=== PATIENT | male | born 1955 | race Caucasian/White ===

== ENCOUNTER → 2016-05-07 | Outpatient (CLI) | payer BC | END | disposition home or self-care (01) | LOC: LABWHC1 11:19 | PROVIDERS: ATTEND Urology | DX: C61 Malignant neoplasm of prostate (principal) | CPT/HCPCS: 36415; 84153 ==

== ENCOUNTER → 2016-09-16 | Outpatient (CLI) | payer BC ==
[2016-09-16 07:55] LABS: Appearance,Urine Clear (Clear); Bilirubin,Urine Negative (Negative); Glucose,Urine (UA) Negative (Negative); Ketones,Urine Negative (Negative); Leukocyte Esterase,Urine Negative (Negative); Nitrite,Urine Negative (Negative); PH, Urine 5.5 (5.0-8.0); Protein,Urine Negative (Negative); Specific Gravity,Urine 1.019 (1.001-1.035); UA Billing (MACRO vs. MICRO) CHEM; Urobilinogen,Urine <2.0 mg/dL (<2.0)
[2016-09-16 07:58] LABS: CH 33.5; CHCM 33.6; HCT 43.5 % (39.0-53.0); HDW 2.37; HGB 14.5 gm/dL (13.0-17.5); MCH 33.4 pg (25.0-35.0); MCHC 33.4 g/dL (31.0-37.0); Mean Platelet Volume 6.9; RBC 4.35 m/uL (4.30-5.90); RDW 12.5 % (11.5-15.5); WBC 6.9 k/uL (3.8-10.6)
[2016-09-16 12:21] LABS: ALT 36 U/L (21-72); AST 23 U/L (17-59); Alkaline Phosphatase 62 U/L (38-126); Anion Gap 7 mmol/L; Blood Urea Nitrogen 17 mg/dL (9-20); Calcium 9.9 mg/dL (8.4-10.2); Carbon Dioxide 28 mmol/L (22-30); Chloride 108 mmol/L (98-107); Cholesterol 134 mg/dL (<200); Glucose 96 mg/dL (74-99); HDL Cholesterol 44 mg/dL (40-60); Non-African American GFR(MDRD) >60 (>60 ml/min/1.73 sqM); Potassium 4.9 mmol/L (3.5-5.1); Sodium 143 mmol/L (137-145); Total Bilirubin 0.4 mg/dL (0.2-1.3); Total Protein 6.5 g/dL (6.3-8.2); Triglycerides 51 mg/dL (<150)
[2016-09-16 12:45] LABS: Prostate Specific Antigen 1.47 ng/mL (0.00-4.00)
== END | disposition home or self-care (01) ==
LOC: LABWHC1 07:09
PROVIDERS: ATTEND Internal Medicine
DX: Z00.00 Encounter for general adult medical examination without abnormal findings (principal); C61 Malignant neoplasm of prostate; I25.10 Atherosclerotic heart disease of native coronary artery without angina pectoris; E78.5 Hyperlipidemia, unspecified
CPT/HCPCS: 36415; 80053; 80061; 81003; 84153; 85027

== ENCOUNTER → 2017-12-01 | Outpatient (CLI) | payer BC ==
[2017-12-01 10:10] LABS: Prostate Specific Antigen 2.88 ng/mL (0.00-4.00)
== END | disposition home or self-care (01) ==
LOC: LABWHC1 06:52
PROVIDERS: ATTEND Urology
DX: C61 Malignant neoplasm of prostate (principal); I25.10 Atherosclerotic heart disease of native coronary artery without angina pectoris
CPT/HCPCS: 36415; 80061; 84153

== ENCOUNTER → 2018-03-06 | Outpatient (CLI) | payer BC ==
[2018-03-06 07:27] LABS: HCT 46.2 % (39.0-53.0); MCH 31.9 pg (25.0-35.0); MCHC 32.5 g/dL (31.0-37.0); MCV 98.2 fL (80.0-100.0); Mean Platelet Volume 6.6; Platelet Count 192 k/uL (150-450); RBC 4.71 m/uL (4.30-5.90); RDW 12.5 % (11.5-15.5); WBC 8.3 k/uL (3.8-10.6)
[2018-03-06 11:30] LABS: Albumin 4.3 g/dL (3.80-4.90); Albumin/Globulin Ratio 2.26 (1.20-2.10); Anion Gap 2.9 mmol/L (4.00-12.00); Calcium 9.4 mg/dL (8.7-10.3); Carbon Dioxide 29.1 mmol/L (21.6-31.8); Globulin 1.9 g/dL (2.1-3.7); LDL Cholesterol,Calculated 80.6 mg/dL (0.0-131.0); Potassium 4.2 mmol/L (3.5-5.5); Total Bilirubin 0.5 mg/dL (0.2-1.2); Total Protein 6.2 g/dL (6.2-8.2); VLDL Calculation 19.4 mg/dL (5.00-40.00)
[2018-03-06 11:39] LABS: Prostate Specific Antigen 1.8 ng/mL (0.0-4.5)
[2018-03-06 11:50] LABS: T4, Free (Free Thyroxine) 0.9 ng/dL (0.80-1.80)
== END | disposition home or self-care (01) ==
LOC: LABWHC1 06:52
PROVIDERS: ATTEND Internal Medicine Cardiovascular Disease
DX: I25.10 Atherosclerotic heart disease of native coronary artery without angina pectoris (principal); I10 Essential (primary) hypertension; E78.5 Hyperlipidemia, unspecified; N40.0 Benign prostatic hyperplasia without lower urinary tract symptoms; I73.9 Peripheral vascular disease, unspecified
CPT/HCPCS: 36415; 80053; 80061; 84153; 84439; 84443; 84481; 85027

== ENCOUNTER → 2018-03-07 | Outpatient (CLI) | payer BC ==
--- NOTE | 2018-03-08 05:44 | MR ---
EXAMINATION TYPE: MR Prostate wo/w con DATE OF EXAM: 03/07/2018 COMPARISON: IMAGE QUALITY: . INDICATION: Prostate cancer PSA: 1.8 ng/ml Recent Biopsy and Date: Pathology Report (If Applicable): TECHNIQUE: Examination was performed using a 3T MRI without an endorectal coil. Multiparametric imaging was perf ormed with T2 mutliplanar sequences, axial diffusion weighted imaging and dynamic contrast enhanced i maging, utilizing 7.5 mL intravenous Gadavist gadolinium contrast. FINDINGS: Prostate gland measures 4.8 x 4.1 x 3.7 cm. On the T2 images there is a large area of abnormal decrea sed signal involving the right peripheral gland. This measures 3.2 x 1.4 cm. The left peripheral glan d shows fairly normal signal pattern. Central gland is unremarkable. Right peripheral gland is slight ly larger than the left. The early contrast images show enhancement of the right peripheral gland that measures 3.3 x 2.4 cm. The intermediate contrast images show some washout of the contrast in the central portion of the abno rmal right peripheral gland. This persists into the delayed images. IMPRESSION: The exam shows asymmetric enlargement of the right peripheral gland with abnormal signal pattern on t he T2 images consistent with tumor. This is also abnormal on the contrast images with early pathologi c enhancement and early washout.
== END | disposition home or self-care (01) ==
LOC: RADMRIMAIN 08:54
PROVIDERS: ATTEND Urology
DX: C61 Malignant neoplasm of prostate (principal)
CPT/HCPCS: 72197

== ENCOUNTER → 2018-05-18 | Outpatient (CLI) | payer BC ==
[2018-05-18 07:47] LABS: HCT 46.7 % (39.0-53.0); HGB 14.8 gm/dL (13.0-17.5); MCH 31.4 pg (25.0-35.0); MCHC 31.7 g/dL (31.0-37.0); Mean Platelet Volume 6.5; Platelet Count 175 k/uL (150-450); RBC 4.72 m/uL (4.30-5.90); RDW 12.9 % (11.5-15.5); WBC 6.7 k/uL (3.8-10.6)
[2018-05-18 07:54] LABS: Appearance,Urine Clear (Clear); Bilirubin,Urine Negative (Negative); Blood,Urine Negative (Negative); Color,Urine Yellow; Glucose,Urine (UA) Negative (Negative); Ketones,Urine Negative (Negative); Leukocyte Esterase,Urine Negative (Negative); Nitrite,Urine Negative (Negative); PH, Urine 6.5 (5.0-8.0); Protein,Urine Negative (Negative); Specific Gravity,Urine 1.012 (1.001-1.035); Urobilinogen,Urine <2.0 mg/dL (<2.0)
[2018-05-18 12:32] LABS: Albumin 4.4 g/dL (3.80-4.90); Albumin/Globulin Ratio 2.32 (1.20-2.10); Anion Gap 7.4 mmol/L (4.00-12.00); Calcium 9.7 mg/dL (8.7-10.3); Carbon Dioxide 28.6 mmol/L (21.6-31.8); Globulin 1.9 g/dL (1.6-3.3); LDL Cholesterol,Calculated 76.6 mg/dL (0.0-131.0); Potassium 5.1 mmol/L (3.5-5.5); Total Bilirubin 0.7 mg/dL (0.3-1.2); Total Protein 6.3 g/dL (6.2-8.2); VLDL Calculation 17.4 mg/dL (5.00-40.00)
== END ==
LOC: LABWHC1 06:50
PROVIDERS: ATTEND Internal Medicine
DX: I10 Essential (primary) hypertension (principal); C61 Malignant neoplasm of prostate; E78.5 Hyperlipidemia, unspecified; I25.10 Atherosclerotic heart disease of native coronary artery without angina pectoris
CPT/HCPCS: 36415; 80053; 80061; 81003; 84153; 85027

== ENCOUNTER → 2018-06-18 | Outpatient (CLI) | payer BC ==
--- NOTE | 2018-06-19 04:10 | NM ---
EXAMINATION TYPE: NM bone scan whole body DATE OF EXAM: 06/18/2018 COMPARISON: NONE HISTORY: 62-year-old male with history of prostate cancer Technique: Delayed whole-body scanning was performed following the injection of 21.1 mCi Tc 99m MDP. Anterior and posterior projection images acquired 3 hours post injection. FINDINGS: There is some degenerative tracer activity at the shoulders, sternoclavicular joints, and left knee. Focal area of increased activity in the region of the left ischium on the posterior projection may be degenerative or could relate to tendinopathy of the hamstrings. Urinary contamination is noted. IMPRESSION: Solitary focus at the right ischium on the posterior projection is nonspecific. Correlate as to the l evel of PSA elevation to exclude osseous metastatic disease. In addition to a solitary metastatic foc us, degenerative uptake or uptake relating to hamstring tendinopathy are possible.
== END | disposition home or self-care (01) ==
LOC: RADNMMAIN 09:50
PROVIDERS: ATTEND Urology
DX: C61 Malignant neoplasm of prostate (principal)
CPT/HCPCS: 78306; A9503

== ENCOUNTER → 2019-06-11 | Outpatient (CLI) | payer BC ==
[2019-06-11 07:35] LABS: Appearance,Urine Clear (Clear); Bilirubin,Urine Negative (Negative); Blood,Urine Negative (Negative); Color,Urine Yellow; Glucose,Urine (UA) Negative (Negative); Ketones,Urine Negative (Negative); Leukocyte Esterase,Urine Negative (Negative); Nitrite,Urine Negative (Negative); PH, Urine 5.5 (5.0-8.0); Protein,Urine Trace (Negative); Specific Gravity,Urine 1.026 (1.001-1.035)
[2019-06-11 07:36] LABS: HCT 41.6 % (39.0-53.0); HGB 13.6 gm/dL (13.0-17.5); MCH 32.7 pg (25.0-35.0); MCHC 32.8 g/dL (31.0-37.0); MCV 99.6 fL (80.0-100.0); Mean Platelet Volume 7.3; Platelet Count 176 k/uL (150-450); RBC 4.18 m/uL (4.30-5.90); RDW 11.9 % (11.5-15.5); WBC 6.2 k/uL (3.8-10.6)
[2019-06-11 11:38] LABS: ALT 19 U/L (10-49); AST 18 U/L (14-35); Albumin/Globulin Ratio 2.39 (1.60-3.17); Alkaline Phosphatase 79 U/L (41-126); BUN/Creat Ratio 23.75 Ratio (12.00-20.00); Calcium 9.8 mg/dL (8.7-10.3); Carbon Dioxide 28.7 mmol/L (21.6-31.8); Chloride 110 mmol/L (96-109); Chol/HDL Ratio 3.28; Cholesterol 151 mg/dL (0-200); Globulin 1.8 g/dL (1.6-3.3); Glucose 100 mg/dL (70-110); Non-African American GFR(CKD) 95.7 (60.0-200.0); Potassium 4.4 mmol/L (3.5-5.5); Sodium 142 mmol/L (135-145); Total Bilirubin 0.3 mg/dL (0.3-1.2); Total Protein 6.1 g/dL (6.2-8.2); Triglycerides <50.0 mg/dL (0.0-149.0)
== END | disposition home or self-care (01) ==
LOC: LABWHC1 06:44
PROVIDERS: ATTEND Internal Medicine
DX: I10 Essential (primary) hypertension (principal); E78.5 Hyperlipidemia, unspecified
CPT/HCPCS: 36415; 80053; 80061; 81003; 85027

== ENCOUNTER → 2020-08-18 | Outpatient (CLI) | payer BC ==
[2020-08-18 08:16] LABS: Appearance,Urine Clear (Clear); Bilirubin,Urine Negative (Negative); Blood,Urine Negative (Negative); Color,Urine Yellow; Glucose,Urine (UA) Negative (Negative); Ketones,Urine Negative (Negative); Leukocyte Esterase,Urine Negative (Negative); Nitrite,Urine Negative (Negative); PH, Urine 5.5 (5.0-8.0); Protein,Urine Negative (Negative); Specific Gravity,Urine 1.012 (1.001-1.035); Urobilinogen,Urine <2.0 mg/dL (<2.0)
[2020-08-18 14:45] LABS: HCT 41.5 % (39.6-50.0); HGB 13.6 g/dL (13.0-17.0); MCH 33.4 pg (27.0-32.0); MCHC 32.8 g/dL (32.0-37.0); Mean Platelet Volume 10.5 fL (9.5-12.2); Platelet Count 166 X 10*3/uL (140-440); RBC 4.07 X 10*6/uL (4.40-5.60); RDW 12.8 % (11.5-14.5); WBC 5.66 X 10*3/uL (4.50-10.00)
[2020-08-18 18:30] LABS: Hemoglobin A1C 5.5 % (4.0-6.0)
[2020-08-19 03:59] LABS: African American GFR (CKD) 116.4 (60.0-200.0); Albumin 4.1 g/dL (3.80-4.90); Albumin/Globulin Ratio 2.28 (1.60-3.17); Anion Gap 3.8 mmol/L (4.00-12.00); Calcium 9.4 mg/dL (8.7-10.3); Carbon Dioxide 28.2 mmol/L (21.6-31.8); Chol/HDL Ratio 3.24; Globulin 1.8 g/dL (1.6-3.3); LDL Cholesterol,Calculated 82.2 mg/dL (0.0-131.0); Non-African American GFR(CKD) 100.4 (60.0-200.0); Potassium 4.7 mmol/L (3.5-5.5); Total Bilirubin 0.4 mg/dL (0.2-1.2); Total Protein 5.9 g/dL (6.2-8.2); VLDL Calculation 11.8 mg/dL (5.00-40.00)
[2020-08-19 04:07] LABS: T4, Free (Free Thyroxine) 0.9 ng/dL (0.80-1.80)
== END | disposition home or self-care (01) ==
LOC: LABWHC1 06:58
PROVIDERS: ATTEND Internal Medicine
DX: E78.5 Hyperlipidemia, unspecified (principal); I10 Essential (primary) hypertension; I25.10 Atherosclerotic heart disease of native coronary artery without angina pectoris
CPT/HCPCS: 36415; 80053; 80061; 81003; 83036; 84439; 84443; 85027

== ENCOUNTER 2021-04-24 10:51 | Emergency (ER) | payer BC ==
[2021-04-24 11:16] VITALS: RESP 18
[2021-04-24] MEDS: ACETAMINOPHEN TAB 500 MG TAB PO STA (11:44)
--- NOTE | 2021-04-24 11:52 | ED ---
URI HPI - General Chief Complaint: Upper Respiratory Infection Stated Complaint: cough Time Seen by Provider: 04/24/21 11:18 Source: patient Mode of arrival: ambulatory Limitations: no limitations - History of Present Illness Initial Comments: 65 year-old male patient presents for evaluation of dry cough, congestion, and fever. States he has been sick since . State when he coughs he feels some pain in his left flank. Denies shortness of breath. Denies any nausea, vomiting, or diarrhea. States he did have COVID vaccine and booster. He was vacc inated for influenza. He is a smoker. States he did a televisit with his physician and was given tessalon perles for cough. Patient denies any recent rash, chest pain, abdominal pain, constipation, back pain, numbness, tingling, dizziness, weakness, hematuria, dysuria, urinary urgency, urinary frequency, headache, visual changes, or any other complaints. - Related Data Previous Rx's Medication Instructions Recorded Oseltamivir [Tamiflu] 75 mg PO Q12HR #10 cap 04/24/21 Allergies Allergy/AdvReac Type Severity Reaction Status Date / Time No Known Allergies Allergy Verified 04/24/21 11:15 Review of Systems ROS Statement: Those systems with pertinent positive or pertinent negative responses have been documented in the HPI. ROS Other: All systems not noted in ROS Statement are negative. Past Medical History Past Medical History: Coronary Artery Disease (CAD), Cancer, Hyperlipidemia, Hypertension, Prostate Disorder Additional Past Medical History / Comment(s): prostate cancer History of Any Multi-Drug Resistant Organisms: None Reported Past Surgical History: Coronary Bypass/CABG, Heart Catheterization With Stent Past Psychological History: No Psychological Hx Reported Smoking Status: Current every day smoker Past Alcohol Use History: Occasional Past Drug Use History: None Reported General Exam Limitations: no limitations General appearance: alert, in no apparent distress, other (This is a well- developed, well-nourished adult male in no acute distress.) ENT exam: Present: normal exam, normal oropharynx, mucous membranes moist Respiratory exam: Present: normal lung sounds bilaterally. Absent: respiratory distress, wheezes, rales, rhonchi, stridor Cardiovascular Exam: Present: regular rate, normal rhythm, normal heart sounds. Absent: systolic murmur, diastolic murmur, rubs, gallop, clicks GI/Abdominal exam: Present: soft, normal bowel sounds. Absent: distended, tenderness, guarding, rebound, rigid Neurological exam: Present: alert, oriented X3, CN II-XII intact Psychiatric exam: Present: normal affect, normal mood Skin exam: Present: warm, dry, intact, normal color. Absent: rash Course Vital Signs 04/24/21 04/24/21 04/24/21 11:10 11:37 13:41 Temperature 100.4 F H 98.7 F Pulse Rate 86 62 Respiratory 18 18 18 Rate Blood Pressure 173/75 116/66 O2 Sat by Pulse 96 94 L Oximetry Medical Decision Making - Medical Decision Making 65-year-old male patient presents to the emergency department today for evaluation of cough, congestion, and fever. The states symptoms started on and have been worsening. States he is having some chest discomfort with coughing. Physical examination did reveal clear equal lung sounds. He is in no respiratory distress. Chest x-ray was negative. He did test positive for influenza A. He'll be started on Tamiflu. Discharge follow-up with his primary care physician for recheck in 1-2 days. Return parameters were discussed in detail. He verbalizes understanding and agrees with this plan. My attending is Dr. Cast. - Lab Data Lab Results 04/24/21 Range/Units 11:52 Influenza Type A (PCR) Detected A (Not Detectd) Influenza Type B (PCR) Not Detected (Not Detectd) RSV (PCR) Not Detected (Not Detectd) SARS-CoV-2 (PCR) Not Detected (Not Detectd) - Radiology Data Radiology results: report reviewed, image reviewed Two-view x-ray of the chest is obtained. Report was reviewed in its entirety. Impression by Dr. Tiwari shows no focal airspace disease, pneumothorax or pleural effusion. The cardiomediastinal silhouette is normal in appearance. Midline sternotomy wires and surgical jana projecting over the left middle lower hemithorax chest wall and medial aspect of the right upper hemithorax. No acute osseous abnormalities seen. Disposition Clinical Impression: Influenza A Disposition: HOME SELF-CARE Condition: Good Instructions (If sedation given, give patient instructions): Influenza (ED) Additional Instructions: Tips to help you feel better: -Maintain adequate fluid intake - especially water. -Rest, you are healing your body will require extra sleep. -Eat even if you do not feel like it - broth, jello, toast are fine if you cannot eat full meals. -Take tylenol and motrin alternating (if you have no allergies or have not been instructed to avoid these medications) to help with body aches and fevers. -Take medications as prescribed. Follow-up with your primary care physician for recheck in 1-2 days. Return for any new, worsening, or concerning symptoms. Prescriptions: Oseltamivir [Tamiflu] 75 mg PO Q12HR #10 cap Is patient prescribed a controlled substance at d/c from ED?: No Referrals: Kandy Ortiz MD [Primary Care Provider] - 1-2 days Time of Disposition: 12:44
--- NOTE | 2021-04-24 12:08 | XR ---
EXAMINATION TYPE: XR chest 2V DATE OF EXAM: 04/24/2021 COMPARISON: NONE HISTORY: 65 years Male. STUDY INDICATION GIVEN: Cough/fever . TECHNIQUE: Frontal and lateral chest radiographs. IMPRESSION: No focal airspace disease, pneumothorax or pleural effusion. The cardiomediastinal silhouette is normal in appearance. Midline sternotomy wires and surgical jana projecting over the left mid and lower hemithorax/chest wall and medial aspect of the right upper hemithorax. No acute osseous abnormalities seen.
[2021-04-24 13:43] VITALS: BP 116/66; PULSE 62; TEMP 98.7
[2021-04-24] MEDS: OSELTAMIVIR 75 MG CAP PO STA (13:45)
== END 2021-04-24 13:52 | disposition home or self-care (01) ==
LOC: EC 10:51
DX: J10.1 Influenza due to other identified influenza virus with other respiratory manifestations (principal); I10 Essential (primary) hypertension; I25.10 Atherosclerotic heart disease of native coronary artery without angina pectoris; E78.5 Hyperlipidemia, unspecified; F17.200 Nicotine dependence, unspecified, uncomplicated
CPT/HCPCS: 71046; 87636; 99285

== ENCOUNTER → 2021-06-10 | Outpatient (CLI) | payer BC ==
--- NOTE | 2021-06-10 16:06 | XR ---
EXAMINATION TYPE: XR chest 2V DATE OF EXAM: 06/10/2021 COMPARISON: 04/24/2021 HISTORY: 65-year-old male R05.9, cough TECHNIQUE: Frontal and lateral views FINDINGS: Heart normal size. Median sternotomy wires and post-CABG clips in the mediastinum. Additional surgica l clips of the left axilla. Aorta and pulmonary vasculature within normal limits. Mild hyperinflation . No consolidation or pleural effusion seen. IMPRESSION: Hyperinflation suggesting underlying COPD. Clinically correlate. Post-CABG changes. No acute process identified.
== END | disposition home or self-care (01) ==
LOC: RADXRMAIN 15:50
PROVIDERS: ATTEND Internal Medicine
DX: R05.9 Cough, unspecified (principal); Z95.1 Presence of aortocoronary bypass graft
CPT/HCPCS: 71046

== ENCOUNTER → 2021-08-25 | Outpatient (CLI) | payer BC ==
[2021-08-25 10:49] LABS: HGB 13.3 g/dL (13.0-17.0); MCH 32.8 pg (27.0-32.0); MCHC 32.4 g/dL (32.0-37.0); Mean Platelet Volume 10.3 fL (9.5-12.2); NRBC Per 100 WBC 0 /100 WBCS (0.0-0.0); Platelet Count 187 X 10*3/uL (140-440); RBC 4.06 X 10*6/uL (4.40-5.60); RDW 12.8 % (11.5-14.5); WBC 5.85 X 10*3/uL (4.50-10.00)
[2021-08-25 11:24] LABS: Appearance,Urine Clear (Clear); Bilirubin,Urine Negative (Negative); Blood,Urine Negative (Negative); Color,Urine Dark Yellow (Yellow); Ketones,Urine Negative (Negative); Nitrite,Urine Negative (Negative); PH, Urine 5.5 (5.0-8.0); Specific Gravity,Urine 1.022 (1.001-1.030); Urobilinogen,Urine 0.2 (0.2,1.0)
[2021-08-25 11:47] LABS: ALT 20 U/L (10-49); AST 21 U/L (14-35); African American GFR (CKD) 109.4 (60.0-200.0); Albumin 4.2 g/dL (3.8-4.9); Albumin/Globulin Ratio 1.62 (1.60-3.17); Alkaline Phosphatase 64 U/L (41-126); BUN/Creat Ratio 17.88 Ratio (12.00-20.00); Blood Urea Nitrogen 14.3 mg/dL (9.0-27.0); Calcium 9.8 mg/dL (8.7-10.3); Chloride 106 mmol/L (96-109); Chol/HDL Ratio 2.64 Ratio; Globulin 2.6 g/dL (1.6-3.3); Glucose 109 mg/dL (70-110); LDL Cholesterol,Calculated 73.1 mg/dL (0.0-131.0); Non-African American GFR(CKD) 94.4 (60.0-200.0); Potassium 5.4 mmol/L (3.5-5.5); Sodium 140 mmol/L (135-145); Total Protein 6.8 g/dL (6.2-8.2); VLDL Calculation 10.78 mg/dL (5.00-40.00)
[2021-08-25 12:55] LABS: PSA Annual Screen <0.014 ng/mL (0.000-4.000)
== END | disposition home or self-care (01) ==
LOC: LABWHC1 06:54
PROVIDERS: ATTEND Internal Medicine
DX: I25.10 Atherosclerotic heart disease of native coronary artery without angina pectoris (principal); Z85.46 Personal history of malignant neoplasm of prostate
CPT/HCPCS: 80061; 80053; 85027; 81003; 36415; G0103

== ENCOUNTER 2021-10-18 07:07 | Day surgery (SDC) | payer BC ==
[~2021-10-18 07:07] MED LIST: LACTATED RINGERS 1,000 ML IV SCH
--- NOTE | 2021-10-18 07:24 | P.GSHP ---
History of Present Illness H&P Date: 10/18/21 CHIEF COMPLAINT: Colon screen HISTORY OF PRESENT ILLNESS: The patient is a 65-year-old male who presents for colon screen. Lower endoscopy was offered for further evaluation and management. PAST MEDICAL HISTORY: Please see list. PAST SURGICAL HISTORY: Please see list. MEDICATIONS: Please see list. ALLERGIES: Please see list. SOCIAL HISTORY: No illicit drug use FAMILY HISTORY: No reports of Crohn disease or ulcerative colitis. REVIEW OF ORGAN SYSTEMS: CONSTITUTIONAL: No reports of fevers or chills. PHYSICAL EXAM: VITAL SIGNS: Stable GENERAL: Well-developed pleasant in no acute distress. HEENT: No scleral icterus. Extraocular movements grossly intact. Moist buccal mucosa. NECK: Supple without lymphadenopathy. CHEST: Unlabored respirations. Equal bilateral excursions. CARDIOVASCULAR: Regular rate and rhythm. Distal 2+ pulses. ABDOMEN: Soft, nontender, nondistended. MUSCULOSKELETAL: No clubbing, cyanosis, or edema. ASSESSMENT: 1. Colon screen. PLAN: 1. Recommend proceeding with a lower endoscopy Past Medical History Past Medical History: Coronary Artery Disease (CAD), Cancer, Hyperlipidemia, Hypertension, Myocardial Infarction ([place]), Prostate Disorder Additional Past Medical History / Comment(s): hx. prostate cancer 2 yrs. ago-had radiation & surg. Last Myocardial Infarction Date:: unk History of Any Multi-Drug Resistant Organisms: None Reported Past Surgical History: Appendectomy, Coronary Bypass/CABG, Heart Catheterization With Stent, Orthopedic Surgery, Prostate Surgery Additional Past Surgical History / Comment(s): double bypass years ago-then had re-do few years later, prostatectomy, rotator cuff repair Past Anesthesia/Blood Transfusion Reactions: No Reported Reaction Date of Last Stent Placement:: 10 yrs. ago Smoking Status: Former smoker Medications and Allergies Home Medications Medication Instructions Recorded Confirmed Type Aspirin 81 mg PO DAILY 10/14/21 10/14/21 History Clopidogrel [Plavix] 75 mg PO DAILY 10/14/21 10/14/21 History Multivitamins, Thera [Multivitamin 1 tab PO DAILY 10/14/21 10/14/21 History (formulary)] Sacubitril/Valsartan [Entresto 49 1 each PO BID 10/14/21 10/14/21 History mg-51 mg Tablet] Simvastatin [Zocor] 40 mg PO HS 10/14/21 10/14/21 History carvediloL [Coreg] 3.125 mg PO BID 10/14/21 10/14/21 History Allergies Allergy/AdvReac Type Severity Reaction Status Date / Time No Known Allergies Allergy Verified 10/14/21 14:53
[2021-10-18 07:33] VITALS: RESP 16; TEMP 97
[2021-10-18] MEDS ORDERED: PROPOFOL 10 MG/ML 20 ML VIAL IV ONE (07:55)
--- NOTE | 2021-10-18 08:14 | P.PCN ---
Date of Procedure: 10/18/21 Description of Procedure: PREOPERATIVE DIAGNOSIS: Colonoscopy screening. POSTOPERATIVE DIAGNOSIS: Colonoscopy screening. Arteriovenous malformation 2, cecum OPERATION: Colonoscopy to the cecum, ileocecal valve and appendiceal orifice. SURGEON: Sandee Mccormack MD. ANESTHESIA: MAC. INDICATIONS: The patient is a 65-year-old female who presents for colonoscopy screening. Last colonoscopy over 10 years ago. Benefits and risks were described and informed consent was obtained. DESCRIPTION OF PROCEDURE: The patient had undergone Sutab prep. The patient had been brought into the operating room and laid in the left lateral decubitus position. After adequate intravenous sedation, the rectum was examined with 2% lidocaine jelly. The prostate was unremarkable. No external hemorrhoids were encountered. The rectal tone was within normal limits. No lesions were palpated in the rectal vault. An Olympus colonoscope was advanced until the cecum, ileocecal valve and appendiceal orifice were clearly viewed. The prep was good. No scattered diverticulosis was encountered. No colonic polyps were found. No evidence of focal colitis was found. Retroflexion of the scope demonstrated grade 2 internal hemorrhoids without active bleeding or inflammation. The colon was desufflated. The patient had tolerated the procedure well. Withdrawal time was over 6 minutes. FINDINGS: Aronchick preparation quality scale 2 (1-5) Internal hemorrhoids, grade 2 No external prolapsed hemorrhoids. Arteriovenous malformations 2, cecum 2-3 mm without bleeding No adenomatous polyps. No focal colitis. RECOMMENDATIONS: Lower endoscopy in 10 years, 2031 Plan - Discharge Summary Discharge Rx Participant: No New Discharge Prescriptions: Continue Simvastatin [Zocor] 40 mg PO HS carvediloL [Coreg] 3.125 mg PO BID Sacubitril/Valsartan [Entresto 49 mg-51 mg Tablet] 1 each PO BID Clopidogrel [Plavix] 75 mg PO DAILY Multivitamins, Thera [Multivitamin (formulary)] 1 tab PO DAILY Aspirin 81 mg PO DAILY Discharge Medication List Aspirin 81 mg PO DAILY 10/14/21 [History] Clopidogrel [Plavix] 75 mg PO DAILY 10/14/21 [History] Multivitamins, Thera [Multivitamin (formulary)] 1 tab PO DAILY 10/14/21 [Histor y] Sacubitril/Valsartan [Entresto 49 mg-51 mg Tablet] 1 each PO BID 10/14/21 [History] Simvastatin [Zocor] 40 mg PO HS 10/14/21 [History] carvediloL [Coreg] 3.125 mg PO BID 10/14/21 [History] Follow up Appointment(s)/Referral(s): Sandee Mccormack MD [STAFF PHYSICIAN] - As Needed Patient Instructions/Handouts: Arteriovenous Malformation (DC) Activity/Diet/Wound Care/Special Instructions: Repeat colonoscopy in 10 years2031 Discharge Disposition: HOME SELF-CARE
[2021-10-18 08:44] VITALS: BP 108/70; PULSE 51
== END 2021-10-18 08:59 | disposition home or self-care (01) ==
LOC: ORWHC2ENDO 07:07
PROVIDERS: ATTEND Surgery Plastic and Reconstructive Surgery
DX: Z12.11 Encounter for screening for malignant neoplasm of colon (principal); Q27.39 Arteriovenous malformation, other site; K64.1 Second degree hemorrhoids; I25.10 Atherosclerotic heart disease of native coronary artery without angina pectoris; I10 Essential (primary) hypertension; E78.5 Hyperlipidemia, unspecified; I25.2 Old myocardial infarction; Z85.46 Personal history of malignant neoplasm of prostate; Z92.3 Personal history of irradiation; Z90.49 Acquired absence of other specified parts of digestive tract; Z95.1 Presence of aortocoronary bypass graft; Z95.5 Presence of coronary angioplasty implant and graft; Z90.79 Acquired absence of other genital organ(s); Z98.890 Other specified postprocedural states; Z87.891 Personal history of nicotine dependence; Z79.02 Long term (current) use of antithrombotics/antiplatelets; Z79.82 Long term (current) use of aspirin; Z79.899 Other long term (current) drug therapy
CPT/HCPCS: J2704; G0121; 45378

== ENCOUNTER → 2021-12-01 | Outpatient (CLI) | payer BC ==
--- NOTE | 2021-12-01 09:07 | CTL ---
EXAMINATION TYPE: CT Low Dose Lung DATE OF EXAM ORDERED: 12/01/2021 HISTORY: Personal tobacco use. Lung cancer screening CT DLP: 110.5 mGycm Automated exposure control for dose reduction was used. SCREENING VISIT: Initial COMPARISON: None TECHNIQUE: Low dose computed tomography scan was performed through the chest at 1 mm thick sections a nd reconstructed images in the coronal plane at [address] DIAGNOSTIC QUALITY: Satisfactory FINDINGS: LUNG NODULES: None. LUNGS: COPD: Severity: None Fibrosis: Severity: None Lymph nodes: None Other findings: None RIGHT PLEURAL SPACE: Effusion: None Calcification: None Thickening: None Pneumothorax: None LEFT PLEURAL SPACE: Effusion: None Calcification: None Thickening: None Pneumothorax: None HEART: Heart Size: Normal Coronary calcification: Moderate Pericardial effusion: None OTHER FINDINGS: Upper abdomen: Normal Bony thorax: Normal Supraclavicular region: Normal Other: Ascending thoracic aorta at the level of main pulmonary artery is 3.7 cm. Main pulmonary arter y the bifurcation is 2.3 cm. IMPRESSION: 1. No suspicious changes to suggest neoplasm. FOLLOW UP CT CHEST RECOMMENDATION: Follow-up low-dose CT chest [address] LUNG RAD: Lung-Rad 1 Negative
== END | disposition home or self-care (01) ==
LOC: RADCTMAIN 06:48
PROVIDERS: ATTEND Internal Medicine
DX: Z12.2 Encounter for screening for malignant neoplasm of respiratory organs (principal); Z87.891 Personal history of nicotine dependence
CPT/HCPCS: 71271

== ENCOUNTER → 2022-06-02 | Outpatient (CLI) | payer BC ==
[2022-06-02 14:28] LABS: Basophils # (A) 0.02 X 10*3/uL (0.00-0.10); Basophils % (A) 0.4 %; Eosinophils # (A) 0.09 X 10*3/uL (0.04-0.35); Eosinophils % (A) 1.7 %; HCT 43.8 % (39.6-50.0); HGB 14.1 g/dL (13.0-17.0); Immature Grans, Automated 0.2 %; Lymphocytes # (A) 1.56 X 10*3/uL (0.90-5.00); Lymphocytes % (A) 28.7 %; MCH 33.4 pg (27.0-32.0); MCHC 32.2 g/dL (32.0-37.0); MCV 103.8 fL (80.0-97.0); Mean Platelet Volume 10.5 fL (9.5-12.2); Monocytes # (A) 0.47 X 10*3/uL (0.20-1.00); Monocytes % (A) 8.6 %; NRBC Per 100 WBC 0 /100 WBCS (0.0-0.0); Neutrophils # (A) 3.29 X 10*3/uL (1.80-7.70); Neutrophils % (A) 60.4 %; Platelet Count 192 X 10*3/uL (140-440); RBC 4.22 X 10*6/uL (4.40-5.60); WBC 5.44 X 10*3/uL (4.50-10.00)
[2022-06-02 15:54] LABS: LDL Cholesterol,Calculated 85.3 mg/dL (0.0-131.0); Magnesium 2.1 mg/dL (1.5-2.4)
[2022-06-02 15:55] LABS: ALT 16 U/L (10-49); AST 20 U/L (14-35); African American GFR (CKD) 103.7 (60.0-200.0); Albumin 4.3 g/dL (3.8-4.9); Albumin/Globulin Ratio 1.51 (1.60-3.17); Alkaline Phosphatase 75 U/L (41-126); Blood Urea Nitrogen 13.8 mg/dL (9.0-27.0); Calcium 10.2 mg/dL (8.7-10.3); Carbon Dioxide 25.1 mmol/L (20.0-27.5); Chloride 105 mmol/L (96-109); Globulin 2.8 g/dL (1.6-3.3); Glucose 106 mg/dL (70-110); Non-African American GFR(CKD) 89.5 (60.0-200.0); Potassium 5.6 mmol/L (3.5-5.5); Sodium 141 mmol/L (135-145); Total Protein 7.1 g/dL (6.2-8.2); Uric Acid 5.7 mg/dL (3.7-8.7)
== END | disposition home or self-care (01) ==
LOC: LABWHC1 07:02
PROVIDERS: ATTEND Internal Medicine
DX: I10 Essential (primary) hypertension (principal); I25.5 Ischemic cardiomyopathy; E78.2 Mixed hyperlipidemia
CPT/HCPCS: 36415; 80053; 80061; 83036; 83735; 83880; 84439; 84443; 84550; 85025

== ENCOUNTER → 2023-03-17 | Outpatient (CLI) | payer BC ==
--- NOTE | 2023-03-17 09:59 | CTL ---
EXAMINATION TYPE: CT Low Dose Lung DATE OF EXAM ORDERED: 03/17/2023 HISTORY: 67-year-old male Z1 2.2, former smoker, quit this year, 40 pack-year history. Lung cancer sc reening CT DLP: 110.[address] CTDI: 2.9 mGy Automated exposure control for dose reduction was used. SCREENING VISIT: Annual follow-up COMPARISON: 12/01/2021 TECHNIQUE: Low dose computed tomography scan was performed through the chest with coronal and sagitta l reconstructions. CT DIAGNOSTIC QUALITY: Satisfactory FINDINGS: Median sternotomy wires are present with post-CABG changes. Heart normal size without pericardial effusion. Minimal atherosclerotic arch calcifications with conventional arch vessel branching anatomy. No thoracic lymphadenopathy by CT size criteria. Mild emphysematous changes. Biapical pleural parenchymal scarring. Mild diffuse bronchial wall thicke gisselle. No consolidation or pleural effusion. No suspicious pulmonary nodules seen. Visualized upper abdomen shows moderate atherosclerotic calcifications of the abdominal aorta. Bones: Mild to moderate degenerative disc disease lower thoracic spine. IMPRESSION: 1. Lung RADS 1, negative. No suspicious pulmonary nodules. 2. COPD with mild emphysema. 3. Post-CABG and median sternotomy changes. CT LUNG RAD AND CT CHEST RECOMMENDATION: Lung-Rad 1 Negative: Continue annual screening with LDCT in 12 months. S Modifier (other clinically significant findings): None
== END | disposition home or self-care (01) ==
LOC: RADCTMAIN 06:23
PROVIDERS: ATTEND Internal Medicine
DX: Z12.2 Encounter for screening for malignant neoplasm of respiratory organs (principal); J43.9 Emphysema, unspecified; J44.9 Chronic obstructive pulmonary disease, unspecified; Z87.891 Personal history of nicotine dependence; Z95.1 Presence of aortocoronary bypass graft
CPT/HCPCS: 71271

== ENCOUNTER → 2023-06-08 | Outpatient (CLI) | payer BC ==
[2023-06-08 12:02] LABS: ALT 31 U/L (10-49); AST 22 U/L (14-35); Albumin 4.5 g/dL (3.8-4.9); Alkaline Phosphatase 72 U/L (41-126); BUN/Creat Ratio 17.11 Ratio (12.00-20.00); Blood Urea Nitrogen 15.4 mg/dL (9.0-27.0); Calcium 10.5 mg/dL (8.7-10.3); Carbon Dioxide 27.5 mmol/L (21.6-31.8); Chloride 104 mmol/L (96-109); Chol/HDL Ratio 2.51 Ratio; Globulin 2.5 g/dL (1.6-3.3); Glucose 102 mg/dL (70-110); LDL Cholesterol,Calculated 61.8 mg/dL (0.0-131.0); Potassium 5.3 mmol/L (3.5-5.5); Sodium 139 mmol/L (135-145); Total Bilirubin 0.5 mg/dL (0.3-1.2); VLDL Calculation 17.14 mg/dL (5.00-40.00)
== END | disposition home or self-care (01) ==
LOC: LABWHC1 06:54
PROVIDERS: ATTEND Internal Medicine
DX: E78.2 Mixed hyperlipidemia (principal)
CPT/HCPCS: 36415; 80053; 80061

== ENCOUNTER → 2024-01-20 | Outpatient (CLI) | payer BC ==
--- NOTE | 2024-01-21 08:45 | CT ---
EXAMINATION TYPE: CT lumbar spine wo con DATE OF EXAM: 01/20/2024 COMPARISON: None HISTORY: chronic back pain CT DLP: 771.8 mGycm CONTRAST: None TECHNIQUE: CT of the lumbar spine is performed on a spiral scan at 3 mm thick sections. Reconstructed images are performed in the coronal and sagittal planes. FINDINGS: T12-L1: No focal disc herniation or significant disc bulge is evident. No spinal canal stenosis or neural foraminal stenosis is present. L1-L2: No focal disc herniation or significant disc bulge is evident. No spinal canal stenosis or n eural foraminal stenosis is present L2-L3: Disc bulge has mild anterior thecal sac flattening. No AP spinal canal stenosis. Neural forame n are patent L3-L4: Minimal disc bulge is present with anterior thecal sac flattening. No AP spinal canal stenosis . Mild facet degenerative changes. Mild right foraminal narrowing is present L4-L5: No focal disc herniation. Minimal broad-based bulge is present with anterior thecal sac contac t. No spinal canal stenosis. Moderate bilateral foraminal narrowing is present. L5-S1: There is a grade 1 spondylolisthesis of L5 anteriorly on S1. Vacuum disc phenomenon is present . Spondylolysis of L5 is present. No AP spinal canal stenosis present. Moderate left and severe right foraminal stenosis is present. Note is made of iliac stents. Vascular calcifications lower aorta. IMPRESSION: 1. Grade 1 spondylolisthesis of L5 anteriorly on S1. 2. Spondylolysis of L5 is present. 3. Narrowing of disc height L5-S1 with vacuum disc phenomenon. 4. Multilevel foraminal narrowing, greatest at L5-S1. [facility], , 01/21/2024 8:43 AM
== END | disposition home or self-care (01) ==
LOC: RADCTMAIN 07:15
PROVIDERS: ATTEND Physical Medicine & Rehabilitation
DX: M48.062 Spinal stenosis, lumbar region with neurogenic claudication
CPT/HCPCS: 72131

== ENCOUNTER → 2024-04-02 | Outpatient (CLI) | payer MEDICARE ==
--- NOTE | 2024-04-02 16:35 | CTL ---
EXAMINATION TYPE: CT Low Dose Lung DATE OF EXAM ORDERED: 04/02/2024 COMPARISON: CT Low Dose Lung 03/17/2023, 12/01/2021 CLINICAL INDICATION: Male, 68 years old with history of Z12.2 lung cancer scrn Z87.891 former smoker ; [facility], Former smoker, quit x1yr. Hx of 1PPD x30yrs., Lung cancer screening, History of Smoking/tobacc o use. TECHNIQUE: Low dose computed tomography scan was performed through the chest at 1 mm thick sections a nd reconstructed images in multiple planes at 1 mm and [address] DLP: 92.[address] CTDI: 2.4 mGy Automated exposure control for dose reduction was used. CT DIAGNOSTIC QUALITY: Satisfactory FINDINGS: Nodules: No clinically significant pulmonary nodules. LUNGS: COPD: Severity: Minimal Fibrosis: Severity: None Lymph nodes: None Other findings: None RIGHT PLEURAL SPACE: Effusion: None Calcification: None Thickening: None Pneumothorax: None LEFT PLEURAL SPACE: Effusion: None Calcification: None Thickening: None Pneumothorax: None HEART: Heart Size: Normal Coronary Calcification: Postsurgical changes from CABG. Pericardial Effusion: None OTHER FINDINGS: Upper abdomen: None Bony thorax: Median sternotomy wires. Mild multilevel degenerative disc disease. Supraclavicular region: None Other: Bilateral gynecomastia. Metallic densities identified within the soft tissues below the left s capula. IMPRESSION: No clinically significant pulmonary nodules. CT LUNG RAD AND CT CHEST RECOMMENDATION: Lung-Rad 1 Negative: Continue annual screening with LDCT in 12 months. S Modifier (other clinically significant findings): None [facility], , 04/02/2024 4:33 PM
== END | disposition home or self-care (01) ==
LOC: RADCTMAIN 14:45
PROVIDERS: ATTEND Internal Medicine
DX: Z12.2 Encounter for screening for malignant neoplasm of respiratory organs (principal); J44.9 Chronic obstructive pulmonary disease, unspecified; N62 Hypertrophy of breast; Z87.891 Personal history of nicotine dependence
CPT/HCPCS: 71271

== ENCOUNTER 2024-04-20 10:10 | Inpatient (IN) | payer MEDICARE ==
--- NOTE | 2024-04-20 10:38 | ED ---
General Adult HPI - General Chief complaint: Shortness of Breath Stated complaint: chest pain/SOB/weakness/on thinners Time Seen by Provider: 04/20/24 10:20 Source: patient, RN notes reviewed, old records reviewed Mode of arrival: wheelchair Limitations: no limitations - History of Present Illness Initial comments: This is a 68-year-old male who has a past medical history significant for coronary artery disease. Patient states he has had multiple bypasses. Patient states she has had at least 2 heart attacks. Patient states for the last 3 weeks or so he has been coughing and feeling weak in his legs. Patient states he also has had some shortness of breath. Patient states this morning however he got up and had discomfort in his chest and significant shortness of breath with exertion and since this felt like his previous MIs he decided to come to the hospital. Patient states currently has no symptoms. Patient denies any fever chills. Patient states he tested negative for COVID at home. Patient denies any swelling in the legs or calf tenderness. - Related Data Home Medications Medication Instructions Recorded Confirmed Aspirin 81 mg PO DAILY 10/14/21 10/18/21 Clopidogrel [Plavix] 75 mg PO DAILY 10/14/21 10/18/21 Multivitamins, Thera [Multivitamin 1 tab PO DAILY 10/14/21 10/18/21 (formulary)] Sacubitril/Valsartan [Entresto 49 1 each PO BID 10/14/21 10/18/21 mg-51 mg Tablet] Simvastatin [Zocor] 40 mg PO HS 10/14/21 10/18/21 carvediloL [Coreg] 3.125 mg PO BID 10/14/21 10/18/21 Allergies Allergy/AdvReac Type Severity Reaction Status Date / Time No Known Allergies Allergy Verified 04/20/24 10:18 Review of Systems ROS Statement: Those systems with pertinent positive or pertinent negative responses have been documented in the HPI. ROS Other: All systems not noted in ROS Statement are negative. Past Medical History Past Medical History: Coronary Artery Disease (CAD), Cancer, Hyperlipidemia, Hypertension, Myocardial Infarction ([place]), Prostate Disorder Additional Past Medical History / Comment(s): hx. prostate cancer 2 yrs. ago-had radiation & surg. Last Myocardial Infarction Date:: unk History of Any Multi-Drug Resistant Organisms: None Reported Past Surgical History: Appendectomy, Coronary Bypass/CABG, Heart Catheterization With Stent, Orthopedic Surgery, Prostate Surgery Additional Past Surgical History / Comment(s): double bypass years ago-then had re-do few years later, prostatectomy, rotator cuff repair Past Anesthesia/Blood Transfusion Reactions: No Reported Reaction Date of Last Stent Placement:: 10 yrs. ago Past Psychological History: No Psychological Hx Reported Smoking Status: Former smoker Past Alcohol Use History: None Reported Past Drug Use History: None Reported General Exam - General Exam Comments Initial Comments: GENERAL: Patient is well-developed and well-nourished. Patient is nontoxic and well- hydrated and is in mild distress. ENT: Neck is soft and supple. No significant lymphadenopathy is noted. Oropharynx is clear. Moist mucous membranes. Neck has full range of motion without eliciting any pain. EYES: The sclera were anicteric and conjunctiva were pink and moist. Extraocular movements were intact and pupils were equal round and reactive to light. Eyelids were unremarkable. PULMONARY: Unlabored respirations. Good breath sounds bilaterally. No audible rales rhonchi or wheezing was noted. CARDIOVASCULAR: There is a regular rate and rhythm without any murmurs gallops or rubs. ABDOMEN: Soft and nontender with normal bowel sounds. SKIN: Skin is clear with no lesions or rashes and otherwise unremarkable. NEUROLOGIC: Patient is alert and oriented x3. Cranial nerves II through XII are grossly intact. Motor and sensory are also intact. Normal speech, volume and content. Symmetrical smile. MUSCULOSKELETAL: Normal extremities with adequate strength and full range of motion. LYMPHATICS: No significant lymphadenopathy is noted PSYCHIATRIC: Normal psychiatric evaluation. Limitations: no limitations Course Vital Signs 04/20/24 04/20/24 04/20/24 10:18 11:12 11:24 Temperature 98.4 F Pulse Rate 85 86 79 Respiratory 20 16 16 Rate Blood Pressure 97/55 114/62 112/63 O2 Sat by Pulse 98 98 100 Oximetry Medical Decision Making - Medical Decision Making EKG is interpreted by myself. EKG shows a sinus rhythm at 88 bpm SD interval 272 QRS is 160 QT interval 398 QTc is 443. Patient's EKG shows no ST segment elevation Was pt. sent in by a medical professional or institution (, PA, PHARMACY CONSULTANT, urgent care, hospital, or senior care...) When possible be specific @ -No Did you speak to anyone other than the patient for history (EMS, parent, family, police, friend...)? What history was obtained from this source @ -No Did you review nursing and triage notes (agree or disagree)? Why? @ -I reviewed and agree with nursing and triage notes Were old charts reviewed (outside hosp., previous admission, EMS record, old EKG, old radiological studies, urgent care reports/EKG's, senior care records)? Report findings @ -No old charts were reviewed Differential Diagnosis? @ -Differential Dyspnea: Coronary syndrome, arrhythmia, tamponade, asthma, COPD, pulmonary embolism, pneumonia, pneumothorax, pulmonary effusion, anaphylaxis, diabetic ketoacidosis, flailed chest, pulmonary contusion, diaphragmatic rupture, anemia, neuromuscular, this is not meant to be an all-inclusive list. EKG interpreted by me (3pts min.). @ -As above X-rays interpreted by me (1pt min.). @ -Chest x-ray shows no acute abnormality CT interpreted by me (1pt min.). @ -None done U/S interpreted by me (1pt. min.). @ -None done What testing was considered but not performed or refused? (CT, X-rays, U/S, labs)? Why? @ -None What meds were considered but not given or refused? Why? @ -None Did you discuss the management of the patient with other professionals (professionals i.e. , PA, PHARMACY CONSULTANT, lab, RT, psych nurse, social service liaison, collar sewer, teacher, philanthropy officer, complex case manager)? Give summary @ -I spoke with Dr. Patterson and she agreed to admit the patient admitted patient wrote admitting orders. I spoke with Dr. Javier and he wanted the patient to get aspirin even though the patient was anemic. Was smoking cessation discussed for >3mins.? @ -No Was critical care preformed (if so, how long)? @ -No Were there social determinants of health that impacted care today? How? (Homelessness, low income, unemployed, alcoholism, drug addiction, transportation, low edu. Level, literacy, decrease access to med. care, intermediate, rehab)? @ -No Was there de-escalation of care discussed even if they declined (Discuss DNR or withdrawal of care, Hospice)? DNR status @ -No What co-morbidities impacted this encounter? (DM, HTN, Smoking, COPD, CAD, Cancer, CVA, ARF, Chemo, Hep., AIDS, mental health diagnosis, sleep apnea, morbid obesity)? @ -None Was patient admitted / discharged? Hospital course, mention meds given and route, prescriptions, significant lab abnormalities, going to OR and other pert inent info. @ -Patient is anemic. Patient's troponin was also elevated. So I admitted the patient did serial CBCs and serial troponins. Patient currently is not experiencing any chest discomfort or shortness of breath and when she moves Undiagnosed new problem with uncertain prognosis? @ -No Drug Therapy requiring intensive monitoring for toxicity (Heparin, Nitro, Insulin, Cardizem)? @ -No Were any procedures done? @ -No Diagnosis/symptom? @ -Anemia Acute, or Chronic, or Acute on Chronic? @ -Acute Uncomplicated (without systemic symptoms) or Complicated (systemic symptoms)? @ -Comp Side effects of treatment? @ -No Exacerbation, Progression, or Severe Exacerbation? @ -No Poses a threat to life or bodily function? How? (Chest pain, USA, OR, pneumonia, PE, COPD, DKA, ARF, appy, cholecystitis, CVA, Diverticulitis, Homicidal, Suicidal, threat to staff... and all critical care pts) @ -Yes this can lead to hypoxia and endorgan dysfunction Diagnosis/symptom? @ -NSTEMI Acute, or Chronic, or Acute on Chronic? @ -Acute Uncomplicated (without systemic symptoms) or Complicated (systemic symptoms)? @ -Complicated Side effects of treatment? @ -None Exacerbation, Progression, or Severe Exacerbation] @ -No Poses a threat to life or bodily function? @ -Yes this can lead to decreased cardiac output and poor perfusion and endorgan dysfunction - Lab Data Result diagrams: 04/20/24 10:23 04/20/24 10:23 Lab Results 04/20/24 04/20/24 04/20/24 Range/Units 10:23 10:23 10:23 WBC 7.6 (3.8-10.6) k/uL RBC 2.90 L (4.30-5.90) m/uL Hgb 7.8 L (13.0-17.5) gm/dL Hct 25.0 L (39.0-53.0) % MCV 86.1 (80.0-100.0) fL MCH 26.9 (25.0-35.0) pg MCHC 31.2 (31.0-37.0) g/dL RDW 15.8 H (11.5-15.5) % Plt Count 239 (150-450) k/uL MPV 7.5 Neutrophils % 76 % Lymphocytes % 16 % Monocytes % 5 % Eosinophils % 0 % Basophils % 0 % Neutrophils # 5.8 (1.3-7.7) k/uL Lymphocytes # 1.2 (1.0-4.8) k/uL Monocytes # 0.4 (0-1.0) k/uL Eosinophils # 0.0 (0-0.7) k/uL Basophils # 0.0 (0-0.2) k/uL Hypochromasia Marked PT 11.2 (10.0-12.5) sec INR 1.0 (<1.2) APTT 22.2 (22.0-30.0) sec D-Dimer 0.49 (<0.60) mg/L FEU Sodium 137 (137-145) mmol/L Potassium 5.1 (3.5-5.1) mmol/L Chloride 104 (98-107) mmol/L Carbon Dioxide 27 (22-30) mmol/L Anion Gap 6 mmol/L BUN 24 H (9-20) mg/dL Creatinine 1.00 (0.66-1.25) mg/dL Est GFR (CKD-EPI)AfAm 90 (>60 ml/min/1.73 sqM) Est GFR (CKD-EPI)NonAf 78 (>60 ml/min/1.73 sqM) Glucose 103 H (74-99) mg/dL Plasma Lactic Acid Alonso (0.7-2.0) mmol/L Calcium 9.7 (8.4-10.2) mg/dL Magnesium 1.9 (1.6-2.3) mg/dL Total Bilirubin 0.4 (0.2-1.3) mg/dL AST 32 (17-59) U/L ALT 20 (4-49) U/L Alkaline Phosphatase 66 (38-126) U/L Troponin I (0.000-0.034) ng/mL NT-Pro-B Natriuret Pep 1830 pg/mL Total Protein 6.6 (6.3-8.2) g/dL Albumin 4.2 (3.5-5.0) g/dL Influenza Type A (PCR) (Not Detectd) Influenza Type B (PCR) (Not Detectd) RSV (PCR) (Not Detectd) SARS-CoV-2 (PCR) (Not Detectd) Blood Type Blood Type Recheck Bld Type Recheck Status Antibody Screen Spec Expiration Date 04/20/24 04/20/24 04/20/24 Range/Units 10:23 10:23 10:23 WBC (3.8-10.6) k/uL RBC (4.30-5.90) m/uL Hgb (13.0-17.5) gm/dL Hct (39.0-53.0) % MCV (80.0-100.0) fL MCH (25.0-35.0) pg MCHC (31.0-37.0) g/dL RDW (11.5-15.5) % Plt Count (150-450) k/uL MPV Neutrophils % % Lymphocytes % % Monocytes % % Eosinophils % % Basophils % % Neutrophils # (1.3-7.7) k/uL Lymphocytes # (1.0-4.8) k/uL Monocytes # (0-1.0) k/uL Eosinophils # (0-0.7) k/uL Basophils # (0-0.2) k/uL Hypochromasia PT (10.0-12.5) sec INR (<1.2) APTT (22.0-30.0) sec D-Dimer (<0.60) mg/L FEU Sodium (137-145) mmol/L Potassium (3.5-5.1) mmol/L Chloride (98-107) mmol/L Carbon Dioxide (22-30) mmol/L Anion Gap mmol/L BUN (9-20) mg/dL Creatinine (0.66-1.25) mg/dL Est GFR (CKD-EPI)AfAm (>60 ml/min/1.73 sqM) Est GFR (CKD-EPI)NonAf (>60 ml/min/1.73 sqM) Glucose (74-99) mg/dL Plasma Lactic Acid Alonso 1.7 (0.7-2.0) mmol/L Calcium (8.4-10.2) mg/dL Magnesium (1.6-2.3) mg/dL Total Bilirubin (0.2-1.3) mg/dL AST (17-59) U/L ALT (4-49) U/L Alkaline Phosphatase (38-126) U/L Troponin I 0.986 H* (0.000-0.034) ng/mL NT-Pro-B Natriuret Pep pg/mL Total Protein (6.3-8.2) g/dL Albumin (3.5-5.0) g/dL Influenza Type A (PCR) Not Detected (Not Detectd) Influenza Type B (PCR) Not Detected (Not Detectd) RSV (PCR) Not Detected (Not Detectd) SARS-CoV-2 (PCR) Not Detected (Not Detectd) Blood Type Blood Type Recheck Bld Type Recheck Status Antibody Screen Spec Expiration Date 04/20/24 Range/Units 11:45 WBC (3.8-10.6) k/uL RBC (4.30-5.90) m/uL Hgb (13.0-17.5) gm/dL Hct (39.0-53.0) % MCV (80.0-100.0) fL MCH (25.0-35.0) pg MCHC (31.0-37.0) g/dL RDW (11.5-15.5) % Plt Count (150-450) k/uL MPV Neutrophils % % Lymphocytes % % Monocytes % % Eosinophils % % Basophils % % Neutrophils # (1.3-7.7) k/uL Lymphocytes # (1.0-4.8) k/uL Monocytes # (0-1.0) k/uL Eosinophils # (0-0.7) k/uL Basophils # (0-0.2) k/uL Hypochromasia PT (10.0-12.5) sec INR (<1.2) APTT (22.0-30.0) sec D-Dimer (<0.60) mg/L FEU Sodium (137-145) mmol/L Potassium (3.5-5.1) mmol/L Chloride (98-107) mmol/L Carbon Dioxide (22-30) mmol/L Anion Gap mmol/L BUN (9-20) mg/dL Creatinine (0.66-1.25) mg/dL Est GFR (CKD-EPI)AfAm (>60 ml/min/1.73 sqM) Est GFR (CKD-EPI)NonAf (>60 ml/min/1.73 sqM) Glucose (74-99) mg/dL Plasma Lactic Acid Alonso (0.7-2.0) mmol/L Calcium (8.4-10.2) mg/dL Magnesium (1.6-2.3) mg/dL Total Bilirubin (0.2-1.3) mg/dL AST (17-59) U/L ALT (4-49) U/L Alkaline Phosphatase (38-126) U/L Troponin I (0.000-0.034) ng/mL NT-Pro-B Natriuret Pep pg/mL Total Protein (6.3-8.2) g/dL Albumin (3.5-5.0) g/dL Influenza Type A (PCR) (Not Detectd) Influenza Type B (PCR) (Not Detectd) RSV (PCR) (Not Detectd) SARS-CoV-2 (PCR) (Not Detectd) Blood Type A Negative Blood Type Recheck No Previous Record Bld Type Recheck Status CABO Indicated Antibody Screen NEGATIVE Spec Expiration Date 04/23/20242344 Disposition Clinical Impression: Anemia, NSTEMI (non-ST elevated myocardial infarction) Disposition: ADMITTED IP TO THIS HOSP Referrals: Gracy Churchill MD [Primary Care Provider] - 1-2 days Time of Disposition: 13:16
[2024-04-20 10:52] LABS: Basophils % (A) 0 %; Eosinophils % (A) 0 %; HGB 7.8 gm/dL (13.0-17.5); Hypochromasia Marked; Lymphocytes # (A) 1.2 k/uL (1.0-4.8); Lymphocytes % (A) 16 %; MCH 26.9 pg (25.0-35.0); MCHC 31.2 g/dL (31.0-37.0); MCV 86.1 fL (80.0-100.0); Mean Platelet Volume 7.5; Monocytes # (A) 0.4 k/uL (0-1.0); Monocytes % (A) 5 %; Neutrophils # (A) 5.8 k/uL (1.3-7.7); Neutrophils % (A) 76 %; Platelet Count 239 k/uL (150-450); RDW 15.8 % (11.5-15.5); WBC 7.6 k/uL (3.8-10.6)
[2024-04-20 11:02] LABS: ALT 20 U/L (4-49); AST 32 U/L (17-59); African American GFR (CKD) 90 (>60 ml/min/1.73 sqM); Albumin 4.2 g/dL (3.5-5.0); Alkaline Phosphatase 66 U/L (38-126); Anion Gap 6 mmol/L; Blood Urea Nitrogen 24 mg/dL (9-20); Calcium 9.7 mg/dL (8.4-10.2); Carbon Dioxide 27 mmol/L (22-30); Chloride 104 mmol/L (98-107); Glucose 103 mg/dL (74-99); Magnesium 1.9 mg/dL (1.6-2.3); Non-African American GFR(CKD) 78 (>60 ml/min/1.73 sqM); Potassium 5.1 mmol/L (3.5-5.1); Sodium 137 mmol/L (137-145); Total Bilirubin 0.4 mg/dL (0.2-1.3); Total Protein 6.6 g/dL (6.3-8.2)
[2024-04-20 11:10] LABS: NT-Pro-B-Type Natriuretic Pept 1830 pg/mL
[2024-04-20 11:13] LABS: Partial Thromboplastin Time 22.2 sec (22.0-30.0); Prothrombin Time 11.2 sec (10.0-12.5)
[2024-04-20] MEDS: NITROGLYCERIN OINT 1 INCH/GM PACKET TOPICAL STA (11:13)
[2024-04-20] MEDS: SODIUM CHLORIDE 0.9% 500 ML 500 ML IV STA (11:14)
[2024-04-20] MEDS: ASPIRIN 81 MG PO STA (11:14)
--- NOTE | 2024-04-20 12:00 | XR ---
EXAMINATION TYPE: XR chest 2V DATE OF EXAM: 04/20/2024 11:34 AM COMPARISON: Chest radiographs from 06/10/2021 CLINICAL INDICATION: Male, 68 years old with history of difficulty breathing; TECHNIQUE: XR chest 2V Frontal and lateral views of the chest. FINDINGS: Lungs/Pleura: Scattered subtle reticular and hazy opacities. No evidence of pneumothorax, focal conso lidation or pleural effusion. Pulmonary vascularity: Pulmonary vascular congestion. Heart/mediastinum: Cardiomediastinal silhouette is unremarkable. Musculoskeletal: No acute osseous pathology. Midline sternotomy wires are noted. IMPRESSION: Subtle scattered opacities which may represent an atypical pneumonia. Correlate for covid 19. [facility], , 04/20/2024 11:58 AM
[2024-04-20] MEDS: SODIUM CHLORIDE 0.9% 1,000 ML IV SCH (14:52)
[2024-04-20 14:57] LABS: Basophils % (A) 0 %; Eosinophils # (A) 0.1 k/uL (0-0.7); Eosinophils % (A) 1 %; HCT 21.4 % (39.0-53.0); Hypochromasia Marked; Lymphocytes # (A) 1.3 k/uL (1.0-4.8); Lymphocytes % (A) 21 %; MCH 27.9 pg (25.0-35.0); MCHC 32.9 g/dL (31.0-37.0); MCV 84.9 fL (80.0-100.0); Mean Platelet Volume 6.6; Monocytes # (A) 0.3 k/uL (0-1.0); Monocytes % (A) 5 %; Neutrophils # (A) 4.3 k/uL (1.3-7.7); Neutrophils % (A) 70 %; Platelet Count 201 k/uL (150-450); RBC 2.52 m/uL (4.30-5.90); RDW 15.8 % (11.5-15.5); WBC 6.1 k/uL (3.8-10.6)
[2024-04-20] MEDS ORDERED: HEPARIN SODIUM 1,000 UN/ML (10ML VL) IV PRN (16:50)
[2024-04-20] MEDS ORDERED: HEPARIN SOD,PORK IN 0.45% NACL 25,000 UNIT in 0.45% NACL 1 250ML.BAG IV SCH (17:00)
--- NOTE | 2024-04-20 17:02 | P.CRDCN ---
History of Present Illness Consult date: 04/20/24 History of present illness: HISTORY OF PRESENTING ILLNESS Patient with past medical history of CAD status post CABG times twice, with multiple PCI last PCI almost 5 years ago. Patient follows up with [facility] cardiology in [place]. Patient reports that for last 2 to 3 weeks he has been increasing lean more fatigue, reports weakness in his legs along with increased shortness of breath and some substernal chest pressure like symptoms. Patient does report that he has been noticing on and off some bloody stools but denies any black tarry stool. Denies any recent procedures or any major bleeding concerns. On admission his ECG showed normal sinus rhythm with right bundle branch block His labs shows hemoglobin of 7.8, RDW 15.8, platelets 239, BUN 24, creatinine 1.0, troponin elevated at 0.98, follow-up at 1.2 NT-proBNP was 1830 Chest x-ray does not show signs of significant pulmonary congestion. REVIEW OF SYSTEMS 14 point review of system is negative except what is mentioned above in HPI. PHYSICAL EXAMINATION Vital signs reviewed. Head: Normocephalic. Eyes: Sclerae nonicteric. Neck: Brisk carotid upstroke, no jugular venous distention. Lungs: Clear to auscultation. Heart: Regular rate and rhythm, S1-S2, no S3, no murmur or rub. Abdomen: Soft nontender, positive bowel sounds. Extremities: No edema, intact distal pulses. Neuro: Alert, oritented, no focal deficits. Detailed neuro exam was not performed. ASSESSMENT Type II NSTEMI likely demand supply mismatch History of CAD status post CABG times twice along with multiple PCI. Acute anemia, symptomatic Fatigue and generalized weakness Ischemic cardiomyopathy PLAN Continue aspirin. Hold Plavix Continue Coreg 3.125 mg twice daily, Imdur 30, Entresto 24/26 mg twice daily Continue Lipitor 40 mg daily I would leave like to start him on IV heparin drip for NSTEMI however because of his acute anemia will not do so. For anemia Give 1 dose of 1 pack PRBC IV Ferrlecit 125 mg 1 dose H&H every 8 hours Obtain Hemoccult stools Start Protonix 40 mg IV twice daily Further recommendations from primary team. Consider GI evaluation Dragan Javier MD, FACC, RPVI Thank you for allowing [facility] to participate in this patient's care. Feel free to reach out in case of any followup questions. Past Medical History Past Medical History: Coronary Artery Disease (CAD), Cancer, Hyperlipidemia, Hypertension, Myocardial Infarction ([place]), Prostate Disorder Additional Past Medical History / Comment(s): hx. prostate cancer 2 yrs. ago-had radiation & surg. Last Myocardial Infarction Date:: unk History of Any Multi-Drug Resistant Organisms: None Reported Past Surgical History: Appendectomy, Coronary Bypass/CABG, Heart Catheterization With Stent, Orthopedic Surgery, Prostate Surgery Additional Past Surgical History / Comment(s): double bypass years ago-then had re-do few years later, prostatectomy, rotator cuff repair Past Anesthesia/Blood Transfusion Reactions: No Reported Reaction Date of Last Stent Placement:: 10 yrs. ago Past Psychological History: No Psychological Hx Reported Smoking Status: Former smoker Past Alcohol Use History: None Reported Past Drug Use History: None Reported Medications and Allergies Home Medications Medication Instructions Recorded Confirmed Type Aspirin 81 mg PO DAILY 10/14/21 04/20/24 History Clopidogrel [Plavix] 75 mg PO DIRECTED 10/14/21 04/20/24 History Sacubitril/Valsartan [Entresto 49 1 tab PO DIRECTED 10/14/21 04/20/24 History mg-51 mg Tablet] carvediloL [Coreg] 3.125 mg PO DIRECTED 10/14/21 04/20/24 History Ezetimibe [Zetia] 10 mg PO DAILY 04/20/24 04/20/24 History HYDROcodone/APAP 7.5-325MG [[place] 1 tab PO TID PRN 04/20/24 04/20/24 History 7.5-325] Isosorbide Mononitrate ER [Imdur] 30 mg PO DAILY 04/20/24 04/20/24 History Pregabalin [Lyrica] 75 mg PO HS 04/20/24 04/20/24 History Rosuvastatin Calcium [Crestor] 40 mg PO DIRECTED 04/20/24 04/20/24 History Allergies Allergy/AdvReac Type Severity Reaction Status Date / Time No Known Allergies Allergy Verified 04/20/24 10:18 Physical Exam Vitals: Vital Signs Temp Pulse Resp BP Pulse Ox 04/20/24 15:30 98.8 F 80 18 129/82 98 04/20/24 14:56 84 15 107/62 100 04/20/24 13:31 98.6 F 85 16 115/66 99 04/20/24 11:24 79 16 112/63 100 04/20/24 11:12 86 16 114/62 98 04/20/24 10:18 98.4 F 85 20 97/55 98 Intake and Output 04/20/24 04/20/24 04/20/24 06:59 14:59 22:59 Other: Voiding Method Toilet Weight 77.111 kg Results 04/20/24 14:45 04/20/24 10:23 Cardiac Enzymes 04/20/24 04/20/24 04/20/24 Range/Units 10:23 10:23 14:19 AST 32 (17-59) U/L Troponin I 0.986 H* 1.200 H* (0.000-0.034) ng/mL Coagulation 04/20/24 Range/Units 10:23 PT 11.2 (10.0-12.5) sec APTT 22.2 (22.0-30.0) sec CBC 04/20/24 04/20/24 Range/Units 10:23 14:45 WBC 7.6 6.1 (3.8-10.6) k/uL RBC 2.90 L 2.52 L (4.30-5.90) m/uL Hgb 7.8 L 7.0 L (13.0-17.5) gm/dL Hct 25.0 L 21.4 L (39.0-53.0) % Plt Count 239 201 (150-450) k/uL Comprehensive Metabolic Panel 04/20/24 Range/Units 10:23 Sodium 137 (137-145) mmol/L Potassium 5.1 (3.5-5.1) mmol/L Chloride 104 (98-107) mmol/L Carbon Dioxide 27 (22-30) mmol/L BUN 24 H (9-20) mg/dL Creatinine 1.00 (0.66-1.25) mg/dL Glucose 103 H (74-99) mg/dL Calcium 9.7 (8.4-10.2) mg/dL AST 32 (17-59) U/L ALT 20 (4-49) U/L Alkaline Phosphatase 66 (38-126) U/L Total Protein 6.6 (6.3-8.2) g/dL Albumin 4.2 (3.5-5.0) g/dL Current Medications Generic Name Dose Route Start Last Admin Trade Name Freq PRN Reason Stop Dose Admin Aspirin 81 mg 04/21/24 09:00 Aspirin 81 Mg PO DAILY [facility] Atorvastatin Calcium 40 mg 04/20/24 21:00 Atorvastatin 40 Mg Tab PO HS FLAQUITA Carvedilol 3.125 mg 04/20/24 17:30 Carvedilol 3.125 Mg Tab PO BID-W/MEALS [facility] Ferric Sodium Gluconate 125 mg 110 mls @ 100 mls/hr 04/20/24 17:00 / Sodium Chloride IVPB 04/20/24 18:05 ONCE ONE Isosorbide Mononitrate 30 mg 04/20/24 17:00 Isosorbide Mononitrate Er 30 Mg Tab.Er.24h PO DAILY [facility] Pantoprazole Sodium 40 mg 04/20/24 21:00 Pantoprazole 40 Mg/10 Ml Vial IVP BID [facility] Sacubitril/Valsartan 1 each 04/20/24 21:00 Sacubitril/Valsartan 24 Mg-26 Mg Tablet PO BID [facility] Intake and Output 04/20/24 04/20/24 04/20/24 06:59 14:59 22:59 Other: Voiding Method Toilet Weight 77.111 kg Patient Weight 04/21/24 06:59 Weight 77.111 kg 04/20/24 14:45 04/20/24 10:23
[2024-04-20 17:24] LABS: Basophils % (A) 0 %; Eosinophils % (A) 0 %; HCT 23.1 % (39.0-53.0); Hypochromasia Marked; Lymphocytes # (A) 1.4 k/uL (1.0-4.8); Lymphocytes % (A) 22 %; MCH 25.8 pg (25.0-35.0); MCHC 29.8 g/dL (31.0-37.0); MCV 86.6 fL (80.0-100.0); Mean Platelet Volume 7.1; Monocytes # (A) 0.3 k/uL (0-1.0); Monocytes % (A) 5 %; Neutrophils # (A) 4.1 k/uL (1.3-7.7); Neutrophils % (A) 68 %; Platelet Count 223 k/uL (150-450); RBC 2.67 m/uL (4.30-5.90); RDW 15.8 % (11.5-15.5); WBC 6.1 k/uL (3.8-10.6)
[2024-04-20 17:26] LABS: HGB 6.9 gm/dL (13.0-17.5)
[2024-04-20] MEDS: ISOSORBIDE MONONITRATE ER 30 MG TAB.ER.24H PO SCH (17:42)
[2024-04-20] MEDS: SODIUM FERRIC GLUCONAT-SUCROSE 125 MG in SODIUM CHLORIDE 0.9% 100 ML IVPB ONE (17:43)
[2024-04-20] MEDS: HEPARIN SODIUM 1,000 UN/ML (10ML VL) IV ONE (17:49)
--- NOTE | 2024-04-20 17:52 | P.HPIM ---
History of Present Illness H&P Date: 04/20/24 Chief Complaint: Shortness of breath/weakness 68-year-old male who has a past medical history significant for coronary artery disease. Patient states he has had multiple bypasses. Patient states she has had at least 2 heart attacks. Patient states for the last 3 weeks or so he has been coughing and feeling weak in his legs. Patient states he also has had some shortness of breath. Patient states this morning however he got up and had discomfort in his chest and significant shortness of breath with exertion and since this felt like his previous MIs he decided to come to the hospital. Patient states currently has no symptoms. Patient denies any fever chills. Viral chavez states he tested negative for COVID at home. Patient denies any swelling in the legs or calf tenderness. ECG showed normal sinus rhythm with right bundle branch block His labs shows hemoglobin of 7.8, RDW 15.8, platelets 239, BUN 24, creatinine 1.0, troponin elevated at 0.98, follow-up at 1.2 NT-proBNP was 1830 Chest x-ray does not show signs of significant pulmonary congestion. Review of Systems REVIEW OF SYSTEMS: CONSTITUTIONAL: No fever, no malaise, no fatigue. HEENT: No recent visual problems or hearing problems. Denied any sore throat. CARDIOVASCULAR: No chest pain, orthopnea, PND, no palpitations, no syncope. PULMONARY: No shortness of breath, no cough, no hemoptysis. GASTROINTESTINAL: No diarrhea, no nausea, no vomiting, no abdominal pain. NEUROLOGICAL: No headaches, no weakness, no numbness. HEMATOLOGICAL: Denies any bleeding or petechiae. GENITOURINARY: Denies any burning micturition, frequency, or urgency. MUSCULOSKELETAL/RHEUMATOLOGICAL: Denies any joint pain, swelling, or any muscle pain. ENDOCRINE: Denies any polyuria or polydipsia. The rest of the 14-point review of systems is negative. Past Medical History Past Medical History: Coronary Artery Disease (CAD), Cancer, Hyperlipidemia, Hypertension, Myocardial Infarction ([place]), Prostate Disorder Additional Past Medical History / Comment(s): hx. prostate cancer 2 yrs. ago-had radiation & surg. Last Myocardial Infarction Date:: unk History of Any Multi-Drug Resistant Organisms: None Reported Past Surgical History: Appendectomy, Coronary Bypass/CABG, Heart Catheterization With Stent, Orthopedic Surgery, Prostate Surgery Additional Past Surgical History / Comment(s): double bypass years ago-then had re-do few years later, prostatectomy, rotator cuff repair Past Anesthesia/Blood Transfusion Reactions: No Reported Reaction Date of Last Stent Placement:: 10 yrs. ago Past Psychological History: No Psychological Hx Reported Smoking Status: Former smoker Past Alcohol Use History: None Reported Past Drug Use History: None Reported Medications and Allergies Home Medications Medication Instructions Recorded Confirmed Type Aspirin 81 mg PO DAILY 10/14/21 04/20/24 History Clopidogrel [Plavix] 75 mg PO DIRECTED 10/14/21 04/20/24 History Sacubitril/Valsartan [Entresto 49 1 tab PO DIRECTED 10/14/21 04/20/24 History mg-51 mg Tablet] carvediloL [Coreg] 3.125 mg PO DIRECTED 10/14/21 04/20/24 History Ezetimibe [Zetia] 10 mg PO DAILY 04/20/24 04/20/24 History HYDROcodone/APAP 7.5-325MG [[place] 1 tab PO TID PRN 04/20/24 04/20/24 History 7.5-325] Isosorbide Mononitrate ER [Imdur] 30 mg PO DAILY 04/20/24 04/20/24 History Pregabalin [Lyrica] 75 mg PO HS 04/20/24 04/20/24 History Rosuvastatin Calcium [Crestor] 40 mg PO DIRECTED 04/20/24 04/20/24 History Allergies Allergy/AdvReac Type Severity Reaction Status Date / Time No Known Allergies Allergy Verified 04/20/24 10:18 Physical Exam Vitals: Vital Signs Temp Pulse Resp BP Pulse Ox 04/20/24 15:30 98.8 F 80 18 129/82 98 04/20/24 14:56 84 15 107/62 100 04/20/24 13:31 98.6 F 85 16 115/66 99 04/20/24 11:24 79 16 112/63 100 04/20/24 11:12 86 16 114/62 98 04/20/24 10:18 98.4 F 85 20 97/55 98 Intake and Output 04/20/24 04/20/24 04/20/24 06:59 14:59 22:59 Other: Voiding Method Toilet Weight 77.111 kg Head: Normocephalic. Eyes: Sclerae nonicteric. Neck: Brisk carotid upstroke, no jugular venous distention. Lungs: Clear to auscultation. Heart: Regular rate and rhythm, S1-S2, no S3, no murmur or rub. Abdomen: Soft nontender, positive bowel sounds. Extremities: No edema, intact distal pulses. Neuro: Alert, oritented, no focal deficits. Detailed neuro exam was not performed. Results CBC & Chem 7: 04/20/24 16:49 04/20/24 10:23 Labs: Abnormal Lab Results - Last 24 Hours (Table) 04/20/24 04/20/24 04/20/24 Range/Units 10:23 10:23 10:23 RBC 2.90 L (4.30-5.90) m/uL Hgb 7.8 L (13.0-17.5) gm/dL Hct 25.0 L (39.0-53.0) % MCHC (31.0-37.0) g/dL RDW 15.8 H (11.5-15.5) % BUN 24 H (9-20) mg/dL Glucose 103 H (74-99) mg/dL Troponin I 0.986 H* (0.000-0.034) ng/mL Crossmatch 04/20/24 04/20/24 04/20/24 Range/Units 11:45 14:19 14:45 RBC 2.52 L (4.30-5.90) m/uL Hgb 7.0 L (13.0-17.5) gm/dL Hct 21.4 L (39.0-53.0) % MCHC (31.0-37.0) g/dL RDW 15.8 H (11.5-15.5) % BUN (9-20) mg/dL Glucose (74-99) mg/dL Troponin I 1.200 H* (0.000-0.034) ng/mL Crossmatch See Detail 04/20/24 Range/Units 16:49 RBC 2.67 L (4.30-5.90) m/uL Hgb 6.9 L* (13.0-17.5) gm/dL Hct 23.1 L (39.0-53.0) % MCHC 29.8 L (31.0-37.0) g/dL RDW 15.8 H (11.5-15.5) % BUN (9-20) mg/dL Glucose (74-99) mg/dL Troponin I (0.000-0.034) ng/mL Crossmatch Assessment and Plan Assessment: 1. Elevated troponin/NSTEMI -Troponin is starting to trend up; IV heparin infusion not initiated per cardiology recommendations; plan to continue with aspirin, Coreg and Lipitor 2. Acute symptomatic anemia; patient reports dark stools for past few days; will monitor H&H closely; type crossmatch and transfuse if hemoglobin is less than 7.0; will order stool occult blood; consult surgery if stool occult blood is positive -- Will add Protonix 40 mg IV twice daily 3. Hypertension; Coreg 3.125 mg twice daily along with Imdur 30 mg daily 4. Hyperlipidemia; Lipitor 40 mg p.o. nightly 5. Coronary artery disease; patient is status post CABG twice along with multiple PCI -- remains on aspirin, statins, Coreg and Entresto, Imdur 6. Gastroesophageal reflux disease; Protonix 40 mg daily DVT prophylaxis; SCDs CODE STATUS; full code
[2024-04-20] MEDS: carvediloL 3.125 MG TAB PO SCH (17:56)
[2024-04-20 18:21] LABS: T4, Free (Free Thyroxine) 0.84 ng/dL (0.78-2.19)
[2024-04-20] MEDS: ATORVASTATIN 40 MG TAB PO SCH (20:49)
[2024-04-20] MEDS: SACUBITRIL/VALSARTAN 24 MG-26 MG TABLET PO SCH (20:49)
[2024-04-20] MEDS: PANTOPRAZOLE 40 MG/10 ML VIAL IVP SCH (20:49)
[2024-04-21 01:59] LABS: Basophils % (A) 0 %; Eosinophils % (A) 1 %; HCT 22.6 % (39.0-53.0); Hypochromasia Marked; Lymphocytes # (A) 1.1 k/uL (1.0-4.8); Lymphocytes % (A) 20 %; MCH 27.2 pg (25.0-35.0); MCHC 30.9 g/dL (31.0-37.0); Mean Platelet Volume 7.4; Monocytes # (A) 0.3 k/uL (0-1.0); Monocytes % (A) 6 %; Neutrophils # (A) 4.1 k/uL (1.3-7.7); Neutrophils % (A) 72 %; Platelet Count 194 k/uL (150-450); RBC 2.57 m/uL (4.30-5.90); RDW 15.8 % (11.5-15.5); WBC 5.7 k/uL (3.8-10.6)
[2024-04-21 07:52] LABS: Hypochromasia Marked; MCH 27.2 pg (25.0-35.0); MCHC 30.7 g/dL (31.0-37.0); MCV 88.5 fL (80.0-100.0); Mean Platelet Volume 8.5; Platelet Count 206 k/uL (150-450); RBC 2.94 m/uL (4.30-5.90); RDW 15.7 % (11.5-15.5)
[2024-04-21 08:06] LABS: African American GFR (CKD) >90 (>60 ml/min/1.73 sqM); Anion Gap 6 mmol/L; Blood Urea Nitrogen 20 mg/dL (9-20); Calcium 9.5 mg/dL (8.4-10.2); Carbon Dioxide 24 mmol/L (22-30); Chloride 109 mmol/L (98-107); Glucose 119 mg/dL (74-99); Non-African American GFR(CKD) 88 (>60 ml/min/1.73 sqM); Potassium 5.2 mmol/L (3.5-5.1); Sodium 139 mmol/L (137-145)
[2024-04-21] MEDS ORDERED: ASPIRIN 325 MG TAB PO SCH (09:00)
[2024-04-21] MEDS: ASPIRIN 81 MG PO SCH (09:39)
[2024-04-21 11:21] LABS: % Iron Saturation 2.68 (15.00-50.00); Chol/HDL Ratio 2.06 Ratio; Ferritin 6.8 ng/mL (22.0-322.0); Iron 12 UG/DL (65-175); LDL Cholesterol,Calculated 42.9 mg/dL (0.0-131.0); Total Iron Binding Capacity 448 UG/DL (228-460); VLDL Calculation 11.74 mg/dL (5.00-40.00)
--- NOTE | 2024-04-21 15:14 | P.PN ---
Subjective Progress Note Date: 04/21/24 68-year-old male who has a past medical history significant for coronary artery disease. Patient states he has had multiple bypasses. Patient states she has had at least 2 heart attacks. Patient states for the last 3 weeks or so he has been coughing and feeling weak in his legs. Patient states he also has had some shortness of breath. Patient states this morning however he got up and had discomfort in his chest and significant shortness of breath with exertion and since this felt like his previous MIs he decided to come to the hospital. Patient states currently has no symptoms. Patient denies any fever chills. Patient states he tested negative for COVID at home. Patient denies any swelli ng in the legs or calf tenderness. ECG showed normal sinus rhythm with right bundle branch block His labs shows hemoglobin of 7.8, RDW 15.8, platelets 239, BUN 24, creatinine 1.0, troponin elevated at 0.98, follow-up at 1.2 NT-proBNP was 1830 Chest x-ray does not show signs of significant pulmonary congestion. --- NSTEMI; likely type II-patient will remain on aspirin but Plavix has been placed on hold; continue Coreg, Imdur and Entresto; Lipitor 40 mg daily -- Cardiology on board and recommending surgery consult for colonoscopy tomorrow; surgery has been consulted -- Stool occult blood is positive; patient received 1 unit packed RBCs and hemoglobin is up to 8.0 -We will continue to hold anticoagulant and continue to monitor electrolytes closely with plans to transfuse if hemoglobin is less than 8.0 Objective - Vital Signs Vital signs: Vital Signs Temp 98.3 F 04/21/24 11:36 Pulse 72 04/21/24 11:36 Resp 16 04/21/24 11:36 BP 103/61 04/21/24 11:36 Pulse Ox 98 04/21/24 11:36 FiO2 Intake & Output 04/20/24 04/21/24 04/21/24 18:59 06:59 18:59 Intake Total 600 1418 Balance 600 1418 Weight 77.111 kg 79.7 kg Intake: IV 600 600 Sodium Chloride 0.9% 1, 600 600 000 ml @ 75 mls/hr IV . [id number] [facility] Rx#:[id number] Oral 540 Blood Product 278 Rc Pheresis As-3 Unit 278 [id number] Other: Voiding Method Toilet Toilet Toilet # Voids 1 - Exam Head: Normocephalic. Eyes: Sclerae nonicteric. Neck: Brisk carotid upstroke, no jugular venous distention. Lungs: Clear to auscultation. Heart: Regular rate and rhythm, S1-S2, no S3, no murmur or rub. Abdomen: Soft nontender, positive bowel sounds. Extremities: No edema, intact distal pulses. Neuro: Alert, oritented, no focal deficits. Detailed neuro exam was not performed. - Labs CBC & Chem 7: 04/21/24 07:35 04/21/24 07:35 Labs: Abnormal Lab Results - Last 24 Hours (Table) 04/20/24 04/20/24 04/20/24 Range/Units 11:45 14:19 14:45 RBC 2.52 L (4.30-5.90) m/uL Hgb 7.0 L (13.0-17.5) gm/dL Hct 21.4 L (39.0-53.0) % MCHC (31.0-37.0) g/dL RDW 15.8 H (11.5-15.5) % Potassium (3.5-5.1) mmol/L Chloride (98-107) mmol/L Glucose (74-99) mg/dL Iron (65-175) UG/DL % Saturation (15.00-50.00) Ferritin (22.0-322.0) ng/mL Troponin I 1.200 H* (0.000-0.034) ng/mL TSH (0.465-4.680) mIU/L Crossmatch See Detail 04/20/24 04/20/24 04/20/24 Range/Units 16:49 16:49 16:56 RBC 2.67 L (4.30-5.90) m/uL Hgb 6.9 L* (13.0-17.5) gm/dL Hct 23.1 L (39.0-53.0) % MCHC 29.8 L (31.0-37.0) g/dL RDW 15.8 H (11.5-15.5) % Potassium (3.5-5.1) mmol/L Chloride (98-107) mmol/L Glucose (74-99) mg/dL Iron 12 L (65-175) UG/DL % Saturation 2.68 L (15.00-50.00) Ferritin 6.8 L (22.0-322.0) ng/mL Troponin I 1.290 H* (0.000-0.034) ng/mL TSH 0.300 L (0.465-4.680) mIU/L Crossmatch 04/21/24 04/21/24 04/21/24 Range/Units 01:32 07:35 07:35 RBC 2.57 L 2.94 L (4.30-5.90) m/uL Hgb 7.0 L 8.0 L (13.0-17.5) gm/dL Hct 22.6 L 26.0 L (39.0-53.0) % MCHC 30.9 L 30.7 L (31.0-37.0) g/dL RDW 15.8 H 15.7 H (11.5-15.5) % Potassium 5.2 H (3.5-5.1) mmol/L Chloride 109 H (98-107) mmol/L Glucose 119 H (74-99) mg/dL Iron (65-175) UG/DL % Saturation (15.00-50.00) Ferritin (22.0-322.0) ng/mL Troponin I (0.000-0.034) ng/mL TSH (0.465-4.680) mIU/L Crossmatch Assessment and Plan Assessment: 1. Elevated troponin/NSTEMI -Troponin is starting to trend up; IV heparin infusion not initiated per cardiology recommendations; plan to continue with aspirin, Coreg and Lipitor 2. Acute symptomatic anemia; patient reports dark stools for past few days; will monitor H&H closely; type crossmatch and transfuse if hemoglobin is less than 7.0; will order stool occult blood; consult surgery if stool occult blood is positive -- Will add Protonix 40 mg IV twice daily 3. Hypertension; Coreg 3.125 mg twice daily along with Imdur 30 mg daily 4. Hyperlipidemia; Lipitor 40 mg p.o. nightly 5. Coronary artery disease; patient is status post CABG twice along with multiple PCI -- remains on aspirin, statins, Coreg and Entresto, Imdur 6. Gastroesophageal reflux disease; Protonix 40 mg daily DVT prophylaxis; SCDs CODE STATUS; full code
[2024-04-21] MEDS: SODIUM FERRIC GLUCONAT-SUCROSE 125 MG in SODIUM CHLORIDE 0.9% 100 ML IVPB ONE (15:26)
[2024-04-21] MEDS: TORSEMIDE 20 MG TAB PO SCH (15:26)
[2024-04-21] MEDS: IRON PS CMPLX/VIT B12/FA 1 EACH CAP PO SCH (15:26)
[2024-04-21] MEDS: SPIRONOLACTONE 25 MG TAB PO SCH (15:26)
--- NOTE | 2024-04-21 15:41 | P.GSCN ---
History of Present Illness Consult date: 04/21/24 History of present illness: CHIEF COMPLAINT: GI bleed HISTORY OF PRESENT ILLNESS: The patient is a 68-year-old gentleman with pre- existing hypertensive cardiomyopathy including congestive heart failure admitted for acute onset heart failure. Patient presented with hemoglobin, anemia 7.8 down to 6.9 and transfused 1 unit. His dip guider stoves had pulled me aside to give me additional history where patient had a colonoscopy by me in 2021 with findings of AVMs. No additional upper or lower endoscopy performed upon this admission. Patient is tolerating diet. Denies any abdominal pain. At this time, he is hemodynamically stable after 1 unit of blood. PAST MEDICAL HISTORY: See list and reviewed PAST SURGICAL HISTORY: See list and reviewed MEDICATIONS: See list and reviewed ALLERGIES: See list and reviewed SOCIAL HISTORY: See list and reviewed FAMILY HISTORY: See list and reviewed REVIEW OF ORGAN SYSTEMS: CONSTITUTIONAL: No fevers or chills. No recent weight loss. EYES: Denies any trouble with vision. No glasses. HEENT: No difficulties with hearing. No nosebleeds. No difficulty swallowing. RESPIRATORY: Denies pneumonia. Denies any troubles with breathing or dyspnea on exertion. CARDIOVASCULAR: Has cardiomyopathy with acute congestive heart failure. Has coronary artery disease. History of myocardial infarction. Recent history of CABG. GASTROINTESTINAL: History of arteriovenous malformations. GENITOURINARY: History of prostatectomy. NEUROLOGICAL: Denies any numbness or tingling along the distal extremities. No seizure disorders or headaches. MUSCULOSKELETAL: Denies any back pain, stiffness or joint arthritis. SKIN: No current skin cancer. No rash. PSYCHIATRIC: Denies current depression or suicidal thoughts. ENDOCRINE: Denies current thyroid disorders. Denies any blood sugar glucose intolerance. HEME/LYMPHATIC: Denies any lumps and bumps around the neck. No recent deep venous thrombosis. ALLERGY/IMMUNOLOGY: No immunoglobulin therapy. No immune deficiencies. BREAST: Denies current breast lumps, pain or nipple discharge. PHYSICAL EXAM: VITALS: Reviewed CONSTITUTIONAL: Well developed and in no acute distress. EYES: Conjuctivae without sclera icterus. Extraocular movements grossly intact. HEAD, EARS, NOSE, THROAT: Moist buccal mucosa. Head is atraumatic, normocephalic. Hears conversational speech. No nasal drainage. NECK: Supple. No JV distention. No thyroidomegaly. RESPIRATORY: Non-labored respirations and equal bilateral excursions. No gross wheezes. CARDIOVASCULAR: Palpable 2+ radial pulses. ABDOMEN: Nontender. LYMPH: No neck lymphadenopathy. MUSCULOSKELETAL: No clubbing cyanosis or edema SKIN: Warm and well perfused with good skin turgor. NEUROLOGIC: Cranial nerves II through XII grossly intact. No focal or lateralizing signs. PSYCH: Appropriate affect. Alert and oriented to person, place and time. Displays appropriate insight. CLINCAL LABS: Reviewed. Hemoglobin prior to transfusion 6.9 up to 8.0 today. WBC normal. IMAGING: Independently reviewed. Chest x-ray reviewed upon this admission demonstrates no pneumothorax and this is my independent or potation. EKG: Anterior myocardial infarction, with left ventricular hypertrophy, abnormal. RECORDS: previous old records reviewed. Colonoscopy 2021 demonstrates arteriovenous malformations x 2 of the cecum. ASSESSMENT: 1. Anemia status post blood transfusion 2. Congestive heart failure 3. Coronary artery disease status post CABG 4. Status post blood transfusion for anemia 5. Arteriovenous malformation: PLAN: 1. Extensive discussion was performed with the patient's dip guider stoves including nurse and patient. Due to patient's history of arteriovenous malformations, recommend both upper and lower endoscopy. 2. Will need ablation of arteriovenous malformations. 3. Diet has been adjusted to clear liquids with start of bowel prep to include lactulose, milk of magnesia, Nulytely. 4. Patient is elevated risk due to presentation with congestive heart failure. ADVANCE DIRECTIVE: CODE STATUS in chart. Thank you for this kind consultation. Past Medical History Past Medical History: Coronary Artery Disease (CAD), Cancer, Hyperlipidemia, Hypertension, Myocardial Infarction ([place]), Prostate Disorder Additional Past Medical History / Comment(s): hx. prostate cancer 2 yrs. ago-had radiation & surg. Last Myocardial Infarction Date:: unk History of Any Multi-Drug Resistant Organisms: None Reported Past Surgical History: Appendectomy, Coronary Bypass/CABG, Heart Catheterization With Stent, Orthopedic Surgery, Prostate Surgery Additional Past Surgical History / Comment(s): double bypass years ago-then had re-do few years later, prostatectomy, rotator cuff repair Past Anesthesia/Blood Transfusion Reactions: No Reported Reaction Date of Last Stent Placement:: 10 yrs. ago Past Psychological History: No Psychological Hx Reported Smoking Status: Former smoker Past Alcohol Use History: None Reported Past Drug Use History: None Reported - Past Family History Mother Family Medical History: Cancer, Coronary Artery Disease (CAD) Father Family Medical History: Cancer, Coronary Artery Disease (CAD) Medications and Allergies Home Medications Medication Instructions Recorded Confirmed Type Aspirin 81 mg PO DAILY 10/14/21 04/20/24 History Clopidogrel [Plavix] 75 mg PO DIRECTED 10/14/21 04/20/24 History Sacubitril/Valsartan [Entresto 49 1 tab PO DIRECTED 10/14/21 04/20/24 History mg-51 mg Tablet] carvediloL [Coreg] 3.125 mg PO DIRECTED 10/14/21 04/20/24 History Ezetimibe [Zetia] 10 mg PO DAILY 04/20/24 04/20/24 History HYDROcodone/APAP 7.5-325MG [[place] 1 tab PO TID PRN 04/20/24 04/20/24 History 7.5-325] Isosorbide Mononitrate ER [Imdur] 30 mg PO DAILY 04/20/24 04/20/24 History Pregabalin [Lyrica] 75 mg PO HS 04/20/24 04/20/24 History Rosuvastatin Calcium [Crestor] 40 mg PO DIRECTED 04/20/24 04/20/24 History Allergies Allergy/AdvReac Type Severity Reaction Status Date / Time No Known Allergies Allergy Verified 04/20/24 10:18 Surgical - Exam Vital Signs Temp Pulse Resp BP Pulse Ox 98.4 F 85 20 97/55 98 04/20/24 10:18 04/20/24 10:18 04/20/24 10:18 04/20/24 10:18 04/20/24 10:18 Results - Labs 04/21/24 07:35 04/21/24 07:35 Abnormal Lab Results - Last 24 Hours (Table) 04/20/24 04/20/24 04/20/24 Range/Units 11:45 14:45 16:49 RBC 2.52 L 2.67 L (4.30-5.90) m/uL Hgb 7.0 L 6.9 L* (13.0-17.5) gm/dL Hct 21.4 L 23.1 L (39.0-53.0) % MCHC 29.8 L (31.0-37.0) g/dL RDW 15.8 H 15.8 H (11.5-15.5) % Potassium (3.5-5.1) mmol/L Chloride (98-107) mmol/L Glucose (74-99) mg/dL Iron (65-175) UG/DL % Saturation (15.00-50.00) Ferritin (22.0-322.0) ng/mL Troponin I (0.000-0.034) ng/mL TSH (0.465-4.680) mIU/L Crossmatch See Detail 04/20/24 04/20/24 04/21/24 Range/Units 16:49 16:56 01:32 RBC 2.57 L (4.30-5.90) m/uL Hgb 7.0 L (13.0-17.5) gm/dL Hct 22.6 L (39.0-53.0) % MCHC 30.9 L (31.0-37.0) g/dL RDW 15.8 H (11.5-15.5) % Potassium (3.5-5.1) mmol/L Chloride (98-107) mmol/L Glucose (74-99) mg/dL Iron 12 L (65-175) UG/DL % Saturation 2.68 L (15.00-50.00) Ferritin 6.8 L (22.0-322.0) ng/mL Troponin I 1.290 H* (0.000-0.034) ng/mL TSH 0.300 L (0.465-4.680) mIU/L Crossmatch 04/21/24 04/21/24 Range/Units 07:35 07:35 RBC 2.94 L (4.30-5.90) m/uL Hgb 8.0 L (13.0-17.5) gm/dL Hct 26.0 L (39.0-53.0) % MCHC 30.7 L (31.0-37.0) g/dL RDW 15.7 H (11.5-15.5) % Potassium 5.2 H (3.5-5.1) mmol/L Chloride 109 H (98-107) mmol/L Glucose 119 H (74-99) mg/dL Iron (65-175) UG/DL % Saturation (15.00-50.00) Ferritin (22.0-322.0) ng/mL Troponin I (0.000-0.034) ng/mL TSH (0.465-4.680) mIU/L Crossmatch Diabetes panel 04/20/24 04/20/24 04/21/24 Range/Units 16:56 16:56 07:35 Sodium 139 (137-145) mmol/L Potassium 5.2 H (3.5-5.1) mmol/L Chloride 109 H (98-107) mmol/L Carbon Dioxide 24 (22-30) mmol/L BUN 20 (9-20) mg/dL Creatinine 0.90 (0.66-1.25) mg/dL Glucose 119 H (74-99) mg/dL Hemoglobin A1c 5.7 (<=6.0) % Calcium 9.5 (8.4-10.2) mg/dL Triglycerides 58.70 (0.00-149.00) mg/dL HDL Cholesterol 51.40 (40.00-60.00) mg/dL Thyroid panel 04/20/24 Range/Units 16:56 TSH 0.300 L (0.465-4.680) mIU/L Calcium panel 04/21/24 Range/Units 07:35 Calcium 9.5 (8.4-10.2) mg/dL Pituitary panel 04/20/24 04/21/24 Range/Units 16:56 07:35 Sodium 139 (137-145) mmol/L Potassium 5.2 H (3.5-5.1) mmol/L Chloride 109 H (98-107) mmol/L Carbon Dioxide 24 (22-30) mmol/L BUN 20 (9-20) mg/dL Creatinine 0.90 (0.66-1.25) mg/dL Glucose 119 H (74-99) mg/dL Calcium 9.5 (8.4-10.2) mg/dL TSH 0.300 L (0.465-4.680) mIU/L Adrenal panel 04/21/24 Range/Units 07:35 Sodium 139 (137-145) mmol/L Potassium 5.2 H (3.5-5.1) mmol/L Chloride 109 H (98-107) mmol/L Carbon Dioxide 24 (22-30) mmol/L BUN 20 (9-20) mg/dL Creatinine 0.90 (0.66-1.25) mg/dL Glucose 119 H (74-99) mg/dL Calcium 9.5 (8.4-10.2) mg/dL
[2024-04-21 15:51] LABS: Chol/HDL Ratio 2.03 Ratio; LDL Cholesterol,Calculated 41.3 mg/dL (0.0-131.0)
[2024-04-21 16:12] LABS: Basophils % (A) 0 %; Eosinophils % (A) 0 %; HCT 24.3 % (39.0-53.0); HGB 7.5 gm/dL (13.0-17.5); Hypochromasia Marked; Lymphocytes % (A) 17 %; MCH 27.4 pg (25.0-35.0); MCV 88.5 fL (80.0-100.0); Mean Platelet Volume 8.8; Monocytes # (A) 0.4 k/uL (0-1.0); Monocytes % (A) 7 %; Neutrophils # (A) 4.2 k/uL (1.3-7.7); Neutrophils % (A) 74 %; Platelet Count 189 k/uL (150-450); RBC 2.75 m/uL (4.30-5.90); RDW 15.9 % (11.5-15.5); WBC 5.7 k/uL (3.8-10.6)
[2024-04-21] MEDS: PEG 3350 (420 GM/BTL) + LYTES 4,000 ML BOTTLE PO ONE (17:13)
[2024-04-21] MEDS: LACTULOSE 20 GM/30 ML CUP PO SCH (17:16)
[2024-04-21] MEDS: MAGNESIUM HYDROXIDE 2,400 MG/30 ML CUP PO SCH (17:17)
--- NOTE | 2024-04-21 17:56 | CA ---
Transthoracic Echo Report Name: Yousif Robison Age: 68 Gender: M : 1955 Exam Date: 04/20/2024 17:27 Exam Location: [facility] Ht (in): 69 Wt (lb): 170 Ordering Physician: Dragan Javier MD ([id number]) Attending/Referring Phys: [employer] Operations Manager Faith Cerda RDCS Procedure CPT: Indications: nstemi Cardiac Hx: Technical Quality: Technically difficult study Contrast 1: Definity Total Dose (mL): 2 Contrast 2: Total Dose (mL): MEASUREMENTS (Male / Female) Normal Values 2D ECHO LV Diastolic Diameter PLAX 5.6 cm 4.2 - 5.9 / 3.9 - 5.3 cm LV Systolic Diameter PLAX 4.4 cm IVS Diastolic Thickness 1.2 cm 0.6 - 1.0 / 0.6 - 0.9 cm LVPW Diastolic Thickness 1.1 cm 0.6 - 1.0 / 0.6 - 0.9 cm LV Relative Wall Thickness 0.4 RV Internal Dim ED PLAX 2.9 cm LVOT Diameter 1.9 cm LV Diastolic Volume MOD BP 138.4 cm??? 67 - 155 / 56 - 104 cm??? LV Systolic Volume MOD BP 94.7 cm??? 22 - 58 / 19 - 49 cm??? LV Ejection Fraction MOD BP 31.6 % >= 55 % LV Cardiac Index MOD BP 1750.4 cm???/min???m??? LV Diastolic Volume MOD 4C 108.9 cm??? LV Systolic Volume MOD 4C 81.2 cm??? LV Ejection Fraction MOD 4C 25.4 % LV Cardiac Index MOD 4C 1109.9 cm???/min???m??? LV Diastolic Length 4C 8.3 cm LV Systolic Length 4C 8.0 cm LV Diastolic Volume MOD 2C 160.1 cm??? LV Systolic Volume MOD 2C 106.5 cm??? LV Ejection Fraction MOD 2C 33.5 % LV Cardiac Index MOD 2C 2146.4 cm???/min???m??? LV Diastolic Length 2C 9.1 cm LV Systolic Length 2C 7.7 cm M-MODE Aortic Root Diameter MM 3.3 cm LA Systolic Diameter MM 4.7 cm LA Ao Ratio MM 1.4 AV Cusp Separation MM 0.0 cm DOPPLER AV Peak Velocity 126.4 cm/s AV Peak Gradient 6.4 mmHg AV Mean Velocity 77.9 cm/s AV Mean Gradient 3.0 mmHg AV Velocity Time Integral 20.9 cm LVOT Peak Velocity 86.7 cm/s LVOT Peak Gradient 3.0 mmHg LVOT Velocity Time Integral 18.2 cm LVOT Stroke Volume 51.7 cm??? LVOT Stroke Volume Index 26.8 ml/m??? LVOT Cardiac Index 2073.2 cm???/min???m??? AV Area Cont Eq vti 2.5 cm??? AV Area Cont Eq pk 1.9 cm??? Mitral E Point Velocity 118.3 cm/s Mitral A Point Velocity 96.0 cm/s Mitral E to A Ratio 1.2 MV Deceleration Time 176.6 ms MV E' Velocity 5.4 cm/s Mitral E to MV E' Ratio 22.0 TR Peak Velocity 272.3 cm/s TR Peak Gradient 29.7 mmHg Right Ventricular Systolic Press 39.7 mmHg FINDINGS Left Ventricle Mildly increased septal wall thickness. Severely increased left ventricular systolic volume. Moderately decreased left ventricular ejection fraction. Reduced global left ventricular systolic function. Left ventricular ejection fraction is estimated at 30-35 %. Grade 2 diastolic dysfunction. Right Ventricle Normal right ventricular size and function. Mild pulmonary hypertension. Right Atrium Normal right atrial size. Left Atrium Moderate left atrial dilatation. Mitral Valve Structurally normal mitral valve. Mitral valve thickened. Mild mitral annular calcification. [id number] mitral regurgitation. Aortic Valve No aortic stenosis. No aortic regurgitation. Thickened aortic valve without stenosis. Tricuspid Valve Structurally normal tricuspid valve. Mild tricuspid regurgitation. Pulmonic Valve Structurally normal pulmonic valve. Pericardium No pericardial effusion. Aorta Normal size aortic root and proximal ascending aorta. CONCLUSIONS Technically difficult study. Left ventricular ejection fraction is estimated at 30-35 %. Dilated LV cavity Grade 2 diastolic dysfunction. globally reduced LV systolic function Moderate Mitral regurgitation Mild tricuspid regurgitation. RVSP 40 mmHg Previewed by: Dr Dragan Javier (Electronically Signed) Final Date: 21 April 2024 17:55
[2024-04-21] MEDS: NITROGLYCERIN SL TABS 0.4 MG TAB SUBLINGUAL PRN (21:17)
[2024-04-21 21:59] LABS: Anisocytosis Slight; Basophils % (A) 0 %; Eosinophils % (A) 0 %; HCT 24.6 % (39.0-53.0); HGB 7.6 gm/dL (13.0-17.5); Hypochromasia Marked; Lymphocytes # (A) 0.7 k/uL (1.0-4.8); Lymphocytes % (A) 9 %; MCH 27.4 pg (25.0-35.0); MCV 88.2 fL (80.0-100.0); Mean Platelet Volume 7.5; Monocytes # (A) 0.5 k/uL (0-1.0); Monocytes % (A) 6 %; Neutrophils # (A) 7.1 k/uL (1.3-7.7); Neutrophils % (A) 84 %; Platelet Count 216 k/uL (150-450); RBC 2.79 m/uL (4.30-5.90); WBC 8.4 k/uL (3.8-10.6)
--- NOTE | 2024-04-21 23:40 | P.PN ---
Subjective Progress Note Date: 04/21/24 HISTORY OF PRESENTING ILLNESS Patient with past medical history of CAD status post CABG times twice, with multiple PCI last PCI almost 5 years ago. Patient follows up with [facility] cardiology in [place]. Patient reports that for last 2 to 3 weeks he has been increasing lean more fatigue, reports weakness in his legs along with increased shortness of breath and some substernal chest pressure like symptoms. Patient does report that he has been noticing on and off some bloody stools but denies any black tarry stool. Denies any recent procedures or any major bleeding concerns. On admission his ECG showed normal sinus rhythm with right bundle branch block His labs shows hemoglobin of 7.8, RDW 15.8, platelets 239, BUN 24, creatinine 1.0, troponin elevated at 0.98, follow-up at 1.2 NT-proBNP was 1830 Chest x-ray does not show signs of significant pulmonary congestion. Progress note 04/21/2024 Patient is seen and examined at bedside this a.m. Patient hemoglobin has been stable since yesterday after 1 unit of blood transfusion. Patient's iron and ferritin came back significantly low. Patient reports that symptomatically he feels a bit better. No reported active chest pain chest pressure. PHYSICAL EXAMINATION Vital signs reviewed. Head: Normocephalic. Eyes: Sclerae nonicteric. Neck: Brisk carotid upstroke, no jugular venous distention. Lungs: Clear to auscultation. Heart: Regular rate and rhythm, S1-S2, no S3, no murmur or rub. Abdomen: Soft nontender, positive bowel sounds. Extremities: No edema, intact distal pulses. Neuro: Alert, oritented, no focal deficits. Detailed neuro exam was not performed. ASSESSMENT Type II NSTEMI likely demand supply mismatch History of CAD status post CABG times twice along with multiple PCI. Acute anemia, symptomatic Fatigue and generalized weakness Ischemic cardiomyopathy Pertinent cardiac testing Echocardiogram: EF 30 to 35%, dilated LV cavity, moderate mitral regurgitation Very low ferritin levels PLAN Continue aspirin. Hold Plavix Continue Coreg 3.125 mg twice daily, Imdur 30, Entresto 24/26 mg twice daily Continue Lipitor 40 mg daily I would ideally like to start him on IV heparin drip for NSTEMI however because of his acute anemia will not do so. Give IV iron. Patient's ferritin is very low. Recommend GI evaluation. Patient is at moderate to high risk however not a prohibitive risk, for upper GI and lower GI endoscopy. Month since stabilized from anemia standpoint, patient will need ischemic evaluation with a heart catheterization either with primary mortgage loan specialist or at our facility depending on the clinical course. Objective - Vital Signs Vital signs: Vital Signs Temp 98 F 04/21/24 23:10 Pulse 98 04/21/24 23:10 Resp 18 04/21/24 23:10 BP 130/64 04/21/24 23:10 Pulse Ox 97 04/21/24 23:10 FiO2 Intake & Output 04/21/24 04/21/24 04/22/24 06:59 18:59 06:59 Intake Total 1418 10 Balance 1418 10 Weight 79.7 kg Intake: IV 600 10 0.9 % NS FLUSH 10 Sodium Chloride 0.9% 1, 600 000 ml @ 75 mls/hr IV . [id number] [facility] Rx#:[id number] Oral 540 Blood Product 278 Rc Pheresis As-3 Unit 278 [id number] Other: Voiding Method Toilet Toilet Toilet # Voids 1 2 - Labs CBC & Chem 7: 04/21/24 21:36 04/21/24 07:35 Labs: Abnormal Lab Results - Last 24 Hours (Table) 04/20/24 04/21/24 04/21/24 Range/Units 16:56 01:32 07:35 RBC 2.57 L 2.94 L (4.30-5.90) m/uL Hgb 7.0 L 8.0 L (13.0-17.5) gm/dL Hct 22.6 L 26.0 L (39.0-53.0) % MCHC 30.9 L 30.7 L (31.0-37.0) g/dL RDW 15.8 H 15.7 H (11.5-15.5) % Lymphocytes # (1.0-4.8) k/uL Potassium (3.5-5.1) mmol/L Chloride (98-107) mmol/L Glucose (74-99) mg/dL Iron 12 L (65-175) UG/DL % Saturation 2.68 L (15.00-50.00) Ferritin 6.8 L (22.0-322.0) ng/mL 1204/21/24 04/21/24 Range/Units 07:35 15:56 21:36 RBC 2.75 L 2.79 L (4.30-5.90) m/uL Hgb 7.5 L 7.6 L (13.0-17.5) gm/dL Hct 24.3 L 24.6 L (39.0-53.0) % MCHC (31.0-37.0) g/dL RDW 15.9 H 16.0 H (11.5-15.5) % Lymphocytes # 0.7 L (1.0-4.8) k/uL Potassium 5.2 H (3.5-5.1) mmol/L Chloride 109 H (98-107) mmol/L Glucose 119 H (74-99) mg/dL Iron (65-175) UG/DL % Saturation (15.00-50.00) Ferritin (22.0-322.0) ng/mL
[2024-04-22 01:24] LABS: Anisocytosis Slight; HCT 24.8 % (39.0-53.0); HGB 7.8 gm/dL (13.0-17.5); Hypochromasia Marked; MCH 27.9 pg (25.0-35.0); MCHC 31.5 g/dL (31.0-37.0); MCV 88.7 fL (80.0-100.0); Mean Platelet Volume 8.8; Platelet Count 198 k/uL (150-450); RBC 2.79 m/uL (4.30-5.90); RDW 16.1 % (11.5-15.5)
[2024-04-22] MEDS: NITROGLYCERIN SL TABS 0.4 MG TAB SUBLINGUAL STA (03:01)
[2024-04-22] MEDS: METOPROLOL TARTRATE 25 MG TAB PO STA (03:37)
[2024-04-22 08:12] LABS: Anisocytosis Slight; Basophils % (A) 0 %; Eosinophils % (A) 0 %; HGB 7.8 gm/dL (13.0-17.5); Hypochromasia Marked; Lymphocytes # (A) 0.7 k/uL (1.0-4.8); Lymphocytes % (A) 9 %; MCH 27.5 pg (25.0-35.0); MCHC 31.3 g/dL (31.0-37.0); MCV 87.9 fL (80.0-100.0); Mean Platelet Volume 7.3; Monocytes # (A) 0.6 k/uL (0-1.0); Monocytes % (A) 7 %; Neutrophils # (A) 6.9 k/uL (1.3-7.7); Neutrophils % (A) 82 %; Platelet Count 195 k/uL (150-450); Poikilocytosis Slight; RBC 2.84 m/uL (4.30-5.90); RDW 16.2 % (11.5-15.5); WBC 8.5 k/uL (3.8-10.6)
[2024-04-22 08:31] LABS: African American GFR (CKD) >90 (>60 ml/min/1.73 sqM); Anion Gap 4 mmol/L; Blood Urea Nitrogen 20 mg/dL (9-20); Calcium 9.6 mg/dL (8.4-10.2); Carbon Dioxide 29 mmol/L (22-30); Chloride 107 mmol/L (98-107); Glucose 109 mg/dL (74-99); Non-African American GFR(CKD) 83 (>60 ml/min/1.73 sqM); Potassium 4.7 mmol/L (3.5-5.1); Sodium 140 mmol/L (137-145)
[2024-04-22] MEDS ORDERED: LIDOCAINE 1% INJ 10MG/ML (20 ML MDV) ONE (09:25)
[2024-04-22] MEDS ORDERED: PHENYLEPHRINE 10 MG/ML VIAL ONE (09:25)
[2024-04-22] MEDS ORDERED: PROPOFOL 10 MG/ML 20 ML VIAL IV ONE (09:25)
[2024-04-22] MEDS: IV FLUID CONTINUATION 1,000 ML IV ONE (09:34)
--- NOTE | 2024-04-22 10:14 | P.PCN ---
Date of Procedure: 04/22/24 Description of Procedure: PREOPERATIVE DIAGNOSIS: Acute anemia Acute gastrointestinal bleeding Positive stool occult blood Status post blood transfusions Acute myocardial infarction POSTOPERATIVE DIAGNOSIS: Acute gastrointestinal bleeding Positive stool occult blood Status post blood transfusions Diaphragmatic hiatal hernia OPERATION: Esophagogastroduodenoscopy SURGEON: Sandee Mccormack MD ANESTHESIA: MAC. INDICATIONS: The patient is a 68-year-old male who presents with gastrointestinal bleeding, anemia, acute myocardial infarction. Benefits and risks of the procedure were described. Informed consent was obtained. DESCRIPTION: The patient was brought into the endoscopy suite and laid in the left lateral decubitus position. An Olympus gastroscope was passed along the posterior oropharynx down to the distal esophagus where the squamocolumnar junction was encountered at 40 cm from the incisors. The stomach was entered and no bile reflux was found. Additional findings are listed below. The first through third portion of the duodenum was examined and unremarkable. Retroflexion of the scope confirmed Hill grade 2 lower esophageal valve. The squamocolumnar junction demonstrated LA grade A erosive esophagitis. The stomach was desufflated. The patient tolerated the procedure well. FINDINGS: Squamocolumnar junction 40 cm from the incisors. Diaphragmatic hiatus at 44 cm. Hiatal hernia, 4 cm Hill grade 2 lower esophageal valve. LA grade A erosive esophagitis. No active duodenitis. No stigmata of bleeding RECOMMENDATIONS: 1. Diet as tolerated 2. Upper endoscopy as needed
--- NOTE | 2024-04-22 10:17 | P.PCN ---
Date of Procedure: 04/22/24 Description of Procedure: PREOPERATIVE DIAGNOSIS: Acute blood loss anemia status post transfusion Gastrointestinal bleeding Acute myocardial infarction POSTOPERATIVE DIAGNOSIS: Arteriovenous malformation cecum Cecal polyp OPERATION: Colonoscopy with ablation with argon beam business technology analyst for arteriovenous malformation x 2, cecum Colonoscopy to the cecum, ileocecal valve and appendiceal orifice SURGEON: Sandee Mccormack MD. ANESTHESIA: MAC. INDICATIONS: The patient is a 68-year-old male who presents with gastrointestinal bleeding and positive occult stool. Benefits and risks were described and informed consent was obtained. DESCRIPTION OF PROCEDURE: The patient had undergone attempted Golytely prep 2 L, milk of magnesia 2400 mg, lactulose 30 mg 3 times daily. The patient had been brought into the operating room and laid in the left lateral decubitus position. After adequate intravenous sedation, the rectum was examined with 2% lidocaine jelly. Rectal tone within normal limits. An Olympus colonoscope was gently advanced to the cecum with clear visualization of the ileocecal valve including appendiceal orifice. The prep was good. No diverticulosis was found. No active colonic bleeding was found. No intraluminal masses were identified within the colon. Cecal polyp 3 mm was identified near the appendiceal base however not biopsied due to patient's presentation of GI bleed. No evidence of focal colitis was found. Arteriovenous malformation was identified of the cecum x 2 ablated using argon beam business technology analyst. Retroflexion of the scope demonstrated grade 2 internal hemorrhoids with recent inflammation. The colon was desufflated. The patient had tolerated the procedure well. Withdrawal time was over 6 minutes. FINDINGS: Aronchick preparation quality scale 1 (1-5) Internal hemorrhoids, grade 2 No thrombosed hemorrhoid identified. Arteriovenous malformation x 2, 3 to 4 mm ablated using argon beam business technology analyst at base of cecum Benign cecal polyp, 3 mm No focal colitis. No diverticulosis RECOMMENDATIONS: 1. May resume heart healthy diet 2. Hold anticoagulation for 48 hours prior to resuming Plan - Discharge Summary Discharge Rx Participant: Yes New Discharge Prescriptions: No Action Pregabalin [Lyrica] 75 mg PO HS Ezetimibe [Zetia] 10 mg PO DAILY carvediloL [Coreg] 3.125 mg PO BID Sacubitril/Valsartan [Entresto 49 mg-51 mg Tablet] 1 tab PO BID Clopidogrel [Plavix] 75 mg PO DAILY Aspirin 81 mg PO DAILY Isosorbide Mononitrate ER [Imdur] 30 mg PO DAILY HYDROcodone/APAP 7.5-325MG [Colp 7.5-325] 1 tab PO TID PRN PRN Reason: Pain Rosuvastatin [Crestor] 40 mg PO DAILY Discharge Medication List Aspirin 81 mg PO DAILY 10/14/21 [History] Clopidogrel [Plavix] 75 mg PO DAILY 10/14/21 [History] Sacubitril/Valsartan [Entresto 49 mg-51 mg Tablet] 1 tab PO BID 10/14/21 [History] Ezetimibe [Zetia] 10 mg PO DAILY 04/20/24 [History] HYDROcodone/APAP 7.5-325MG [Colp 7.5-325] 1 tab PO TID PRN 04/20/24 [History] Isosorbide Mononitrate ER [Imdur] 30 mg PO DAILY 04/20/24 [History] Pregabalin [Lyrica] 75 mg PO HS 04/20/24 [History] Rosuvastatin [Crestor] 40 mg PO DAILY 04/22/24 [History] carvediloL [Coreg] 3.125 mg PO BID 04/22/24 [History] Follow up Appointment(s)/Referral(s): Gracy Churchill MD [Primary Care Provider] - 1-2 days
--- NOTE | 2024-04-22 12:21 | P.PN ---
Subjective HISTORY OF PRESENT ILLNESS: This is a 68-year-old male who follows with [facility] in [place]. Patient presented to the hospital with shortness of breath and chest pain. Patient also having bloody stools. Patient examined this morning at the bedside. Patient currently denies any chest pain or pressure. He denies any shortness of breath. Vital signs are stable. He is scheduled to undergo endoscopy today. Hemoglobin 7.8. PHYSICAL EXAM: VITAL SIGNS: Reviewed. GENERAL: Well-developed in no acute distress. NECK: Supple. No JVD or thyromegaly LUNGS: Respirations even and unlabored. Lungs essentially clear to auscultation bilaterally. HEART: Regular rate and rhythm. S1 and S2 heard. EXTREMITIES: Normal range of motion. No clubbing or cyanosis. Peripheral pulses intact. No lower extremity edema ASSESSMENT: Acute anemia Elevated troponins, likely type II WI Coronary artery disease with previous CABG and PCI History of ischemic cardiomyopathy, 3035% Moderate mitral regurgitation Hyperlipidemia PLAN: Continue current cardiac medications Plavix remains on hold Patient scheduled to undergo endoscopy today with general surgery. Await findings. Recommend eventual ischemic workup. May be completed with patient's primary generator switchboard operator in [place] Further recommendations pending patient course Nurse practitioner note has been reviewed by physician. Signing provider agrees with the documented findings, assessment, and plan of care documented by GAME MANAGER as a scribe. Objective - Vital Signs Vital signs: Vital Signs Temp 97.6 F 04/22/24 07:57 Pulse 77 04/22/24 07:57 Resp 18 04/22/24 07:57 BP 102/56 04/22/24 07:57 Pulse Ox 96 04/22/24 07:57 FiO2 Intake & Output 04/21/24 04/22/24 04/22/24 18:59 06:59 18:59 Intake Total 10 310 Balance 10 310 Intake: IV 10 310 0.9 % NS FLUSH 10 10 Other: Voiding Method Toilet Toilet Toilet # Voids 2 - Labs CBC & Chem 7: 04/22/24 07:06 04/22/24 07:06 Labs: Abnormal Lab Results - Last 24 Hours (Table) 04/21/24 04/21/24 04/22/24 Range/Units 15:56 21:36 01:11 RBC 2.75 L 2.79 L 2.79 L (4.30-5.90) m/uL Hgb 7.5 L 7.6 L 7.8 L (13.0-17.5) gm/dL Hct 24.3 L 24.6 L 24.8 L (39.0-53.0) % RDW 15.9 H 16.0 H 16.1 H (11.5-15.5) % Lymphocytes # 0.7 L (1.0-4.8) k/uL Glucose (74-99) mg/dL 04/22/24 04/22/24 Range/Units 07:06 07:06 RBC 2.84 L (4.30-5.90) m/uL Hgb 7.8 L (13.0-17.5) gm/dL Hct 25.0 L (39.0-53.0) % RDW 16.2 H (11.5-15.5) % Lymphocytes # 0.7 L (1.0-4.8) k/uL Glucose 109 H (74-99) mg/dL
[2024-04-22] MEDS ORDERED: IPRATROPIUM-ALBUTEROL 3 ML NEB INHALATION PRN (12:31)
--- NOTE | 2024-04-22 12:37 | P.PN ---
Subjective 68-year-old male who has a past medical history significant for coronary artery disease. Patient states he has had multiple bypasses. Patient states she has had at least 2 heart attacks. Patient states for the last 3 weeks or so he has been coughing and feeling weak in his legs. Patient states he also has had some shortness of breath. Patient states this morning however he got up and had discomfort in his chest and significant shortness of breath with exertion and since this felt like his previous MIs he decided to come to the hospital. Patient states currently has no symptoms. Patient denies any fever chills. Patient states he tested negative for COVID at home. Patient denies any swelling in the legs or calf tenderness. ECG showed normal sinus rhythm with right bundle branch block His labs shows hemoglobin of 7.8, RDW 15.8, platelets 239, BUN 24, creatinine 1.0, troponin elevated at 0.98, follow-up at 1.2 NT-proBNP was 1830 Chest x-ray does not show signs of significant pulmonary congestion. --- NSTEMI; likely type II-patient will remain on aspirin but Plavix has been placed on hold; continue Coreg, Imdur and Entresto; Lipitor 40 mg daily -- Cardiology on board and recommending surgery consult for colonoscopy tomorr ow; surgery has been consulted -- Stool occult blood is positive; patient received 1 unit packed RBCs and hemoglobin is up to 8.0 -We will continue to hold anticoagulant and continue to monitor electrolytes closely with plans to transfuse if hemoglobin is less than 8.0 04/22 Patient still complaining from dyspnea but looks better he denies chest pain no significant coughing, he denies blood in his stool at bedside Patient just came back from colonoscopy/EGD with Dr. Mccormack. Final report is pending as per the cauterized couple of spots. Other than that patient feels comfortable denies any other new complaint Currently he is on 2 L oxygen via nasal cannula Patient states that he quit smoking about 1 year ago. He used to smoke less than 1 pack/day. i reviewed the chest xray and the ct scan done earlier in the month , looks there is some hyperinflation we are going to consult pulmonary team for possible copd started him on symbicort and duonebs prn Review of systems CONSTITUTIONAL: No fever, no malaise, no fatigue. GASTROINTESTINAL: No diarrhea, no nausea, no vomiting, no abdominal pain. Normoactive bowel sounds. NEUROLOGICAL: No headaches, no weakness, no numbness. HEMATOLOGICAL: Denies any bleeding or petechiae. GENITOURINARY: Denies any burning micturition, frequency, or urgency. Active Medications Generic Name Dose Route Start Last Admin Trade Name Freq PRN Reason Stop Dose Admin Albuterol/Ipratropium 3 ml 04/22/24 12:31 Ipratropium-Albuterol 3 Ml Neb INHALATION RT-QID PRN Shortness Of Breath Or Wheezing Aspirin 81 mg 04/21/24 09:00 04/22/24 08:58 Aspirin 81 Mg PO 81 mg DAILY FLAQUITA Administration Atorvastatin Calcium 40 mg 04/20/24 21:00 04/21/24 20:18 Atorvastatin 40 Mg Tab PO 40 mg HS FLAQUITA Administration Budesonide/Formoterol Fumarate 2 puff 04/22/24 20:00 Symbicort 160-4.5 Mcg Inhaler INHALATION RT-BID FLAQUITA Carvedilol 3.125 mg 04/20/24 17:30 04/22/24 03:02 Carvedilol 3.125 Mg Tab PO 3.125 mg BID-W/MEALS FLAQUITA Administration Dapagliflozin 10 mg 04/24/24 09:00 Dapagliflozin Propanediol 10 Mg Tablet PO DAILY FLAQUITA Isosorbide Mononitrate 30 mg 04/20/24 17:00 04/22/24 08:57 Isosorbide Mononitrate Er 30 Mg Tab.Er.24h PO 30 mg DAILY FLAQUITA Administration Lactulose 30 gm 04/21/24 16:00 04/22/24 08:49 Lactulose 20 Gm/30 Ml Cup PO Not Given TID FLAQUITA Magnesium Hydroxide 2,400 mg 04/21/24 15:45 04/22/24 08:53 Magnesium Hydroxide 2,400 Mg/30 Ml Cup PO Not Given BID FLAQUITA Melatonin 6 mg 04/22/24 21:00 Melatonin 3 Mg Tablet PO HS FLAQUITA Pantoprazole Sodium 40 mg 04/20/24 21:00 04/22/24 08:57 Pantoprazole 40 Mg/10 Ml Vial IVP 40 mg BID FLAQUITA Administration Polysaccharide Iron Complex 1 each 04/21/24 13:30 04/22/24 08:57 Iron Ps Cmplx/Vit B12/Fa 1 Each Cap PO 1 each DAILY FLAQUITA Administration Sacubitril/Valsartan 1 each 04/20/24 21:00 04/22/24 08:57 Sacubitril/Valsartan 24 Mg-26 Mg Tablet PO 1 each BID FLAQUITA Administration Spironolactone 12.5 mg 04/21/24 13:00 04/22/24 08:57 Spironolactone 25 Mg Tab PO 12.5 mg DAILY FLAQUITA Administration Torsemide 10 mg 04/21/24 13:00 04/22/24 08:57 Torsemide 20 Mg Tab PO 10 mg DAILY FLAQUITA Administration Objective - Vital Signs Vital signs: Vital Signs Temp 97.6 F 04/22/24 07:57 Pulse 77 04/22/24 07:57 Resp 18 04/22/24 07:57 BP 102/56 04/22/24 07:57 Pulse Ox 96 04/22/24 07:57 FiO2 Intake & Output 04/21/24 04/22/24 04/22/24 18:59 06:59 18:59 Intake Total 10 310 Balance 10 310 Intake: IV 10 310 0.9 % NS FLUSH 10 10 Other: Voiding Method Toilet Toilet Toilet # Voids 2 - Exam GENERAL: The patient is alert and oriented x3, not in any acute distress. Well developed, well nourished. HEENT: Pupils are round and equally reacting to light. EOMI. No scleral icterus. No conjunctival pallor. Normocephalic, atraumatic. No pharyngeal erythema. No thyromegaly. CARDIOVASCULAR: S1 and S2 present. No murmurs, rubs, or gallops. -PULMONARY: Chest is clear to auscultation, bilateral wheezing , no crackles. ABDOMEN: Soft, nontender, nondistended, normoactive bowel sounds. No palpable organomegaly. MUSCULOSKELETAL: No joint swelling or deformity. EXTREMITIES: No cyanosis, clubbing, or pedal edema. NEUROLOGICAL: Gross neurological examination did not reveal any focal deficits. SKIN: No rashes. no petechiae. - Labs CBC & Chem 7: 04/22/24 07:06 04/22/24 07:06 Labs: Abnormal Lab Results - Last 24 Hours (Table) 04/21/24 04/21/24 04/22/24 Range/Units 15:56 21:36 01:11 RBC 2.75 L 2.79 L 2.79 L (4.30-5.90) m/uL Hgb 7.5 L 7.6 L 7.8 L (13.0-17.5) gm/dL Hct 24.3 L 24.6 L 24.8 L (39.0-53.0) % RDW 15.9 H 16.0 H 16.1 H (11.5-15.5) % Lymphocytes # 0.7 L (1.0-4.8) k/uL Glucose (74-99) mg/dL 04/22/24 04/22/24 Range/Units 07:06 07:06 RBC 2.84 L (4.30-5.90) m/uL Hgb 7.8 L (13.0-17.5) gm/dL Hct 25.0 L (39.0-53.0) % RDW 16.2 H (11.5-15.5) % Lymphocytes # 0.7 L (1.0-4.8) k/uL Glucose 109 H (74-99) mg/dL Assessment and Plan Assessment: 1. Elevated troponin/NSTEMI -Troponin is starting to trend up; IV heparin infusion not initiated per cardiology recommendations; plan to continue with aspirin, Coreg and Lipitor. -Because of GI bleed, heparin drip was discontinued. Plavix placed on hold 2. Acute symptomatic anemia; patient reports dark stools for past few days; will monitor H&H closely; type crossmatch and transfuse if hemoglobin is less than 7.0; will order stool occult blood; consult surgery if stool occult blood is positive -- Will add Protonix 40 mg IV twice daily -Status post EGD/colonoscopy on 04/22 3. Hypertension; Coreg 3.125 mg twice daily along with Imdur 30 mg daily 4. Hyperlipidemia; Lipitor 40 mg p.o. nightly 5. Coronary artery disease; patient is status post CABG twice along with multiple PCI -- remains on aspirin, statins, Coreg and Entresto, Imdur 6. Gastroesophageal reflux disease; Protonix 40 mg daily 7. Shortness of breath and wheezing -- Mostly secondary to CHF -- Rule out COPD especially there is hyperinflation on the chest x-ray and patient has history of smoking less than a pack per day the last year -- Consult pulmonary service DVT prophylaxis; SCDs CODE STATUS; full code
[2024-04-22] MEDS: IPRATROPIUM-ALBUTEROL 3 ML NEB INHALATION STA (14:39)
[2024-04-22] MEDS: SYMBICORT 160-4.5 MCG INHALER INHALATION SCH (20:39)
[2024-04-22] MEDS: MELATONIN 3 MG TABLET PO SCH (20:56)
[2024-04-23 06:51] LABS: Anisocytosis Slight; Basophils % (A) 0 %; Eosinophils % (A) 0 %; HCT 23.1 % (39.0-53.0); HGB 7.2 gm/dL (13.0-17.5); Hypochromasia Marked; Lymphocytes # (A) 0.9 k/uL (1.0-4.8); Lymphocytes % (A) 15 %; MCH 27.3 pg (25.0-35.0); MCHC 31.4 g/dL (31.0-37.0); MCV 87.1 fL (80.0-100.0); Mean Platelet Volume 7.9; Monocytes # (A) 0.5 k/uL (0-1.0); Monocytes % (A) 7 %; Neutrophils # (A) 4.8 k/uL (1.3-7.7); Neutrophils % (A) 74 %; Platelet Count 188 k/uL (150-450); RBC 2.65 m/uL (4.30-5.90); RDW 16.6 % (11.5-15.5); WBC 6.4 k/uL (3.8-10.6)
[2024-04-23 07:06] LABS: African American GFR (CKD) >90 (>60 ml/min/1.73 sqM); Blood Urea Nitrogen 23 mg/dL (9-20); Calcium 9.5 mg/dL (8.4-10.2); Carbon Dioxide 30 mmol/L (22-30); Chloride 107 mmol/L (98-107); Glucose 95 mg/dL (74-99); Non-African American GFR(CKD) 81 (>60 ml/min/1.73 sqM); Potassium 4.2 mmol/L (3.5-5.1)
[2024-04-23 07:07] LABS: Anion Gap 2 mmol/L; Sodium 139 mmol/L (137-145)
--- NOTE | 2024-04-23 10:08 | P.PN ---
Subjective Progress Note Date: 04/22/24 CHIEF COMPLAINT: Anemia HISTORY OF PRESENT ILLNESS: The patient is a 68-year-old male status post upper and lower endoscopy for anemia. Patient reports no signs of bleeding. No abdominal pain. Patient reports a significant cardiac history including multiple stents CABGs done at outside facility for which he is seeking transfer out of [facility]. Incidentally, patient presented with acute CT. ROS: No reports of nausea and vomiting. No fevers or chills. No new chest pain. No productive sputum PHYSICAL EXAM: VITAL SIGNS: Reviewed CONSTITUTIONAL: Well developed and in no acute distress. EYES: Conjuctivae without sclera icterus. Extraocular movements grossly intact. HEAD, EARS, NOSE, THROAT: Moist buccal mucosa. Head is atraumatic, normocephalic. Hears conversational speech. No nasal drainage. RESPIRATORY: Non-labored respirations and equal bilateral excursions. CARDIOVASCULAR: Palpable 2+ radial pulses. ABDOMEN: No peritonitis. Nontender. MUSCULOSKELETAL: No gross deformity of the lower extremities noted. No clubbing. No cyanosis. SKIN: Good skin turgor. Well perfused. NEUROLOGIC: Cranial nerves II through XII grossly intact. No focal or lateralizing signs. PSYCH: Appropriate affect. Alert and oriented to person, place and time. CLINICAL LABS: Reviewed. Hemoglobin 7.8, anemia. ASSESSMENT: 1. Arteriovenous malformation cecum, bleeding 2. Anemia 3. Acute myocardial infarction 4. Ischemic cardiomyopathy PLAN: 1. Patient presents with significant cardiac history and I do agree with transfer to outpatient facility due to unable to heparinize in the interim for least 24 to 48 hours. 2. I reassured patient that upper and lower endoscopy did not demonstrate any signs of active bleeding. If any additional assessment is needed, capsule e ndoscopy will be of benefit. Member Service Specialist is not available at this time. Transfer to tertiary care facility with GI coverage will be needed for capsule endoscopy. Otherwise no further acute general surgical intervention and will sign off. Objective - Vital Signs Vital signs: Vital Signs Temp 98.3 F 04/22/24 20:55 Pulse 81 04/22/24 20:55 Resp 18 04/22/24 20:55 BP 93/55 04/22/24 20:55 Pulse Ox 96 04/22/24 20:55 FiO2 Intake & Output 12/23/24 12/23/24 12/24/24 06:59 18:59 06:59 Intake Total 10 1448 Balance 10 1448 Intake: IV 10 310 0.9 % NS FLUSH 10 10 Oral 1138 Other: Voiding Method Toilet Toilet Toilet - Labs CBC & Chem 7: 04/23/24 06:07 04/23/24 06:07 Labs: Abnormal Lab Results - Last 24 Hours (Table) 04/22/24 04/22/24 04/22/24 Range/Units 01:11 07:06 07:06 RBC 2.79 L 2.84 L (4.30-5.90) m/uL Hgb 7.8 L 7.8 L (13.0-17.5) gm/dL Hct 24.8 L 25.0 L (39.0-53.0) % RDW 16.1 H 16.2 H (11.5-15.5) % Lymphocytes # 0.7 L (1.0-4.8) k/uL Glucose 109 H (74-99) mg/dL
--- NOTE | 2024-04-23 15:27 | P.PN ---
Subjective Progress Note Date: 04/23/24 HISTORY OF PRESENTING ILLNESS Patient with past medical history of CAD status post CABG times twice, with multiple PCI last PCI almost 5 years ago. Patient follows up with [facility] cardiology in [place]. Patient reports that for last 2 to 3 weeks he has been increasing lean more fatigue, reports weakness in his legs along with increased shortness of breath and some substernal chest pressure like symptoms. Patient does report that he has been noticing on and off some bloody stools but denies any black tarry stool. Denies any recent procedures or any major bleeding concerns. On admission his ECG showed normal sinus rhythm with right bundle branch block His labs shows hemoglobin of 7.8, RDW 15.8, platelets 239, BUN 24, creatinine 1.0, troponin elevated at 0.98, follow-up at 1.2 NT-proBNP was 1830 Chest x-ray does not show signs of significant pulmonary congestion. Progress note 04/21/2024 Patient is seen and examined at bedside this a.m. Patient hemoglobin has been stable since yesterday after 1 unit of blood transfusion. Patient's iron and ferritin came back significantly low. Patient reports that symptomatically he feels a bit better. No reported active chest pain chest pressure. 04/23/2022 Patient is seen and examined at bedside this a.m. She underwent endoscopy and colonoscopy yesterday. Endoscopy showed erosive gastritis and colonoscopy showed AV malformations which were cauterized by argon laser. His hemoglobin was 7.2 today. He is getting 1 unit of blood transfusion today. PHYSICAL EXAMINATION Vital signs reviewed. Head: Normocephalic. Eyes: Sclerae nonicteric. Neck: Brisk carotid upstroke, no jugular venous distention. Lungs: Clear to auscultation. Heart: Regular rate and rhythm, S1-S2, no S3, no murmur or rub. Abdomen: Soft nontender, positive bowel sounds. Extremities: No edema, intact distal pulses. Neuro: Alert, oritented, no focal deficits. Detailed neuro exam was not performed. ASSESSMENT Type II NSTEMI likely demand supply mismatch History of CAD status post CABG times twice along with multiple PCI. Acute anemia, symptomatic --> likely slow GI bleed from colonic AV malformations. Status post argon laser cautery Fatigue and generalized weakness Ischemic cardiomyopathy Pertinent cardiac testing Echocardiogram: EF 30 to 35%, dilated LV cavity, moderate mitral regurgitation Very low ferritin levels PLAN Continue aspirin. Hold Plavix Continue Coreg 3.125 mg twice daily, Imdur 30, Entresto 24/26 mg twice daily Continue Lipitor 40 mg daily I would ideally like to start him on IV heparin drip for NSTEMI however because of his acute anemia will not do so. Patient's ferritin is very low. Discharge him on good iron regimen Patient like to continue following up with Dr. Wylie at [facility] cardiology. Objective - Vital Signs Vital signs: Vital Signs Temp 98.2 F 04/23/24 14:36 Pulse 16 L 04/23/24 14:36 Resp 16 04/23/24 14:36 BP 98/56 04/23/24 14:36 Pulse Ox 97 04/23/24 14:36 FiO2 Intake & Output 04/22/24 04/23/24 04/23/24 18:59 06:59 18:59 Intake Total 1448 790 Balance 1448 790 Weight 79.3 kg Intake: IV 310 0.9 % NS FLUSH 10 Oral 1138 480 Blood Product 310 Rc As-1 Unit 310 [id number] Other: Voiding Method Toilet Toilet Toilet # Voids 1 1 - Labs CBC & Chem 7: 04/23/24 06:07 04/23/24 06:07 Labs: Abnormal Lab Results - Last 24 Hours (Table) 04/20/24 04/23/24 04/23/24 Range/Units 11:45 06:07 06:07 RBC 2.65 L (4.30-5.90) m/uL Hgb 7.2 L (13.0-17.5) gm/dL Hct 23.1 L (39.0-53.0) % RDW 16.6 H (11.5-15.5) % Lymphocytes # 0.9 L (1.0-4.8) k/uL BUN 23 H (9-20) mg/dL Crossmatch See Detail
[2024-04-23 16:06] LABS: Anisocytosis Slight; HCT 27.3 % (39.0-53.0); HGB 8.6 gm/dL (13.0-17.5); Hypochromasia Marked; MCHC 31.6 g/dL (31.0-37.0); MCV 88.4 fL (80.0-100.0); Mean Platelet Volume 7.9; Platelet Count 191 k/uL (150-450); RBC 3.09 m/uL (4.30-5.90); RDW 16.4 % (11.5-15.5); WBC 7.6 k/uL (3.8-10.6)
--- NOTE | 2024-04-23 16:42 | P.PN ---
Subjective 68-year-old male who has a past medical history significant for coronary artery disease. Patient states he has had multiple bypasses. Patient states she has had at least 2 heart attacks. Patient states for the last 3 weeks or so he has been coughing and feeling weak in his legs. Patient states he also has had some shortness of breath. Patient states this morning however he got up and had discomfort in his chest and significant shortness of breath with exertion and since this felt like his previous MIs he decided to come to the hospital. Patient states currently has no symptoms. Patient denies any fever chills. Patient states he tested negative for COVID at home. Patient denies any swelling in the legs or calf tenderness. ECG showed normal sinus rhythm with right bundle branch block His labs shows hemoglobin of 7.8, RDW 15.8, platelets 239, BUN 24, creatinine 1.0, troponin elevated at 0.98, follow-up at 1.2 NT-proBNP was 1830 Chest x-ray does not show signs of significant pulmonary congestion. --- NSTEMI; likely type II-patient will remain on aspirin but Plavix has been placed on hold; continue Coreg, Imdur and Entresto; Lipitor 40 mg daily -- Cardiology on board and recommending surgery consult for colonoscopy tomorr ow; surgery has been consulted -- Stool occult blood is positive; patient received 1 unit packed RBCs and hemoglobin is up to 8.0 -We will continue to hold anticoagulant and continue to monitor electrolytes closely with plans to transfuse if hemoglobin is less than 8.0 04/22 Patient still complaining from dyspnea but looks better he denies chest pain no significant coughing, he denies blood in his stool at bedside Patient just came back from colonoscopy/EGD with Dr. Mccormack. Final report is pending as per the cauterized couple of spots. Other than that patient feels comfortable denies any other new complaint Currently he is on 2 L oxygen via nasal cannula Patient states that he quit smoking about 1 year ago. He used to smoke less than 1 pack/day. i reviewed the chest xray and the ct scan done earlier in the month , looks there is some hyperinflation we are going to consult pulmonary team for possible copd started him on symbicort and duonebs prn 04/23 Patient with no chest pain or dyspnea or any Other new symptom. However his hemoglobin was lower than yesterday, 7.2 today and 7.8 the last 2 days. Patient denies any other bleeding Yesterday he had EGD/colonoscopy by general surgery team, report reviewed as well as the note from surgery team. There was AV malformation x 2 which were cauterized. However there is no active bleeding was witnessed by surgery team. Surgery team recommended if further care is needed they recommended to transfer the patient for tertiary care center for GI team evaluation as patient might need capsule endoscopy. No GI service in this facility during this week. I discussed this recommendation with the patient and over the phone. The she said she is going to discuss it with her and then get back to us if she would want him to be transferred to higher level of care Currently he is on aspirin, Plavix was kept on hold. Per family and patient surgery team informed Plavix can be resumed in 48 hours. Cardiology team also on the case who cleared her for discharge today if he remains stable. Will repeat hemoglobin and blood transfusion Will keep monitoring him for now, plan of care discussed with the patient and in details and they verbalized understanding acceptance with risk benefits explained as well Review of systems CONSTITUTIONAL: No fever, no malaise, no fatigue. GASTROINTESTINAL: No diarrhea, no nausea, no vomiting, no abdominal pain. Normoactive bowel sounds. NEUROLOGICAL: No headaches, no weakness, no numbness. HEMATOLOGICAL: Denies any bleeding or petechiae. GENITOURINARY: Denies any burning micturition, frequency, or urgency. Active Medications Generic Name Dose Route Start Last Admin Trade Name Freq PRN Reason Stop Dose Admin Albuterol/Ipratropium 3 ml 04/22/24 12:31 Ipratropium-Albuterol 3 Ml Neb INHALATION RT-QID PRN Shortness Of Breath Or Wheezing Aspirin 81 mg 04/21/24 09:00 04/23/24 08:51 Aspirin 81 Mg PO 81 mg DAILY FLAQUITA Administration Atorvastatin Calcium 40 mg 04/20/24 21:00 04/22/24 20:56 Atorvastatin 40 Mg Tab PO 40 mg HS FLAQUITA Administration Budesonide/Formoterol Fumarate 2 puff 04/22/24 20:00 04/23/24 09:29 Symbicort 160-4.5 Mcg Inhaler INHALATION Not Given RT-BID FLAQUITA Carvedilol 3.125 mg 04/20/24 17:30 04/23/24 06:08 Carvedilol 3.125 Mg Tab PO 3.125 mg BID-W/MEALS FLAQUITA Administration Dapagliflozin 10 mg 04/24/24 09:00 Dapagliflozin Propanediol 10 Mg Tablet PO DAILY [facility] Ferrous Sulfate 325 mg 04/23/24 16:00 Ferrous Sulfate 325 Mg Tab PO BID-W/MEALS FLAQUITA Isosorbide Mononitrate 30 mg 04/20/24 17:00 04/23/24 08:51 Isosorbide Mononitrate Er 30 Mg Tab.Er.24h PO 30 mg DAILY FLAQUITA Administration Lactulose 30 gm 04/21/24 16:00 04/23/24 16:21 Lactulose 20 Gm/30 Ml Cup PO Not Given TID FLAQUITA Magnesium Hydroxide 2,400 mg 04/21/24 15:45 04/23/24 08:35 Magnesium Hydroxide 2,400 Mg/30 Ml Cup PO Not Given BID FLAQUITA Melatonin 6 mg 04/22/24 21:00 04/22/24 20:56 Melatonin 3 Mg Tablet PO 6 mg HS FLAQUITA Administration Pantoprazole Sodium 40 mg 04/20/24 21:00 04/23/24 08:52 Pantoprazole 40 Mg/10 Ml Vial IVP 40 mg BID FLAQUITA Administration Sacubitril/Valsartan 1 each 04/20/24 21:00 04/23/24 08:52 Sacubitril/Valsartan 24 Mg-26 Mg Tablet PO 1 each BID FLAQUITA Administration Spironolactone 12.5 mg 04/21/24 13:00 04/23/24 08:51 Spironolactone 25 Mg Tab PO 12.5 mg DAILY FLAQUITA Administration Torsemide 10 mg 04/21/24 13:00 04/23/24 08:51 Torsemide 20 Mg Tab PO 10 mg DAILY FLAQUITA Administration Objective - Vital Signs Vital signs: Vital Signs Temp 98.2 F 04/23/24 14:36 Pulse 16 L 04/23/24 14:36 Resp 16 04/23/24 14:36 BP 98/56 04/23/24 14:36 Pulse Ox 97 04/23/24 14:36 FiO2 Intake & Output 04/22/24 04/23/24 04/23/24 18:59 06:59 18:59 Intake Total 1448 790 Balance 1448 790 Weight 79.3 kg Intake: IV 310 0.9 % NS FLUSH 10 Oral 1138 480 Blood Product 310 Rc As-1 Unit 310 [id number] Other: Voiding Method Toilet Toilet Toilet # Voids 1 1 - Exam GENERAL: The patient is alert and oriented x3, not in any acute distress. Well developed, well nourished. HEENT: Pupils are round and equally reacting to light. EOMI. No scleral icterus. No conjunctival pallor. Normocephalic, atraumatic. No pharyngeal erythema. No thyromegaly. CARDIOVASCULAR: S1 and S2 present. No murmurs, rubs, or gallops. -PULMONARY: Chest is clear to auscultation, bilateral wheezing , no crackles. ABDOMEN: Soft, nontender, nondistended, normoactive bowel sounds. No palpable organomegaly. MUSCULOSKELETAL: No joint swelling or deformity. EXTREMITIES: No cyanosis, clubbing, or pedal edema. NEUROLOGICAL: Gross neurological examination did not reveal any focal deficits. SKIN: No rashes. no petechiae. - Labs CBC & Chem 7: 04/23/24 15:41 04/23/24 06:07 Labs: Abnormal Lab Results - Last 24 Hours (Table) 04/20/24 04/23/24 04/23/24 Range/Units 11:45 06:07 06:07 RBC 2.65 L (4.30-5.90) m/uL Hgb 7.2 L (13.0-17.5) gm/dL Hct 23.1 L (39.0-53.0) % RDW 16.6 H (11.5-15.5) % Lymphocytes # 0.9 L (1.0-4.8) k/uL BUN 23 H (9-20) mg/dL Crossmatch See Detail 04/23/24 Range/Units 15:41 RBC 3.09 L (4.30-5.90) m/uL Hgb 8.6 L (13.0-17.5) gm/dL Hct 27.3 L (39.0-53.0) % RDW 16.4 H (11.5-15.5) % Lymphocytes # (1.0-4.8) k/uL BUN (9-20) mg/dL Crossmatch Assessment and Plan Assessment: 1. Elevated troponin/NSTEMI -Troponin is starting to trend up; IV heparin infusion not initiated per cardiology recommendations; plan to continue with aspirin, Coreg and Lipitor. -Because of GI bleed, heparin drip was discontinued. Plavix placed on hold -Surgery team on the case status post EGD/colonoscopy showing erosive esophagitis and 2 spots of AV malformation s/p cautery by surgery team. No active bleeding is noticed. 2. Acute symptomatic anemia; patient reports dark stools for past few days; will monitor H&H closely; type crossmatch and transfuse if hemoglobin is less than 7.0; will order stool occult blood; consult surgery if stool occult blood is positive -- Will add Protonix 40 mg IV twice daily -Status post EGD/colonoscopy on 04/22 -As per surgery team, patient may benefit from capsule endoscopy. However requires GI consult which is not available at this facility and patient may be transferred to tertiary care center, this was discussed with the family and they have to make decision yet -S/p 1 unit of blood transfusion on 04/23 for hemoglobin 7.2. Will continue monitoring -Start iron pill 3. Hypertension; Coreg 3.125 mg twice daily along with Imdur 30 mg daily 4. Hyperlipidemia; Lipitor 40 mg p.o. nightly 5. Coronary artery disease; patient is status post CABG twice along with multiple PCI -- remains on aspirin, statins, Coreg and Entresto, Imdur 6. Gastroesophageal reflux disease; Protonix 40 mg daily 7. Shortness of breath and wheezing -- Mostly secondary to CHF -- Rule out COPD especially there is hyperinflation on the chest x-ray and patient has history of smoking less than a pack per day the last year -- Consult pulmonary service DVT prophylaxis; SCDs CODE STATUS; full code
[2024-04-23] MEDS: FERROUS SULFATE 325 MG TAB PO SCH (17:08)
[2024-04-24 07:52] VITALS: RESP 14
[2024-04-24] MEDS: DAPAGLIFLOZIN PROPANEDIOL 10 MG TABLET PO SCH (08:00)
[2024-04-24 08:07] LABS: Anisocytosis Slight; HCT 28.4 % (39.0-53.0); HGB 8.9 gm/dL (13.0-17.5); Hypochromasia Marked; MCH 27.7 pg (25.0-35.0); MCHC 31.3 g/dL (31.0-37.0); MCV 88.6 fL (80.0-100.0); Mean Platelet Volume 7.5; Platelet Count 182 k/uL (150-450); RBC 3.21 m/uL (4.30-5.90); RDW 16.5 % (11.5-15.5); WBC 5.6 k/uL (3.8-10.6)
[2024-04-24 08:33] LABS: Eosinophils # (M) 0.06 k/uL (0-0.7); Monocytes # (M) 0.45 k/uL (0-1.0); Neutrophils % (M) 75 %; Nucleated Red Blood Cells 0 /100 WBC (0-0); Total Cells Counted 100
--- NOTE | 2024-04-24 11:25 | PN ---
PROGRESS NOTE Yousif is a 68-year-old gentleman with history of CAD, status post CABG x2, status post multiple prior coronary interventions, who follows with Cardiology, comes to hospital with fatigue, weakness, and tiredness and was found to have severe anemia and had since been transfused. The patient has a history of ischemic cardiomyopathy and moderate mitral regurgitation. He underwent EGD and colonoscopy and underwent cauterization of AV malformation within the colon. This morning, the patient appears comfortable at rest and free of cardiac symptoms. PHYSICAL EXAMINATION: GENERAL: Comfortable at rest. VITAL SIGNS: Stable. CHEST: Reveals good air entry bilaterally. HEART: Reveals first and second heart sounds. No gallop. No murmur. ABDOMEN: Soft. EXTREMITIES: Did not reveal any edema. Peripheral pulses are felt. The patient is currently on: 1. Aspirin. 2. Lipitor. 3. Coreg. 4. Imdur. 5. Aldactone. 6. Demadex. The patient's Plavix is on hold secondary to recent GI bleed. ASSESSMENT: 1. Severe symptomatic anemia. 2. Coronary artery disease, status post coronary artery bypass graft. 3. Status post multiple prior angioplasties. PLAN: The patient did not have any recent coronary intervention. He will resume his Plavix when okay with Surgery. 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 STIVENL / KUSHN: [id number] /
[2024-04-24 11:59] VITALS: BP 106/53; PULSE 66; TEMP 98.2
--- NOTE | 2024-04-24 22:59 | P.DS ---
Providers Date of admission: 04/20/24 13:17 Attending physician: Carrie Woody MD Consults: 04/20/24 17:02 Consult Physician Routine Consulting Provider: Kandy Holland Consult Reason/Comments: NSTEMI Do you want consulting provider notified?: Already Contacted 04/22/24 12:33 Consult Physician Routine Consulting Provider: Jannet Antoine Consult Reason/Comments: sob, chf, r/o copd, smoked till last yr Do you want consulting provider notified?: Yes Primary care physician: Gracy Churchill Hospital Course: Diagnoses: 1. Elevated troponin/NSTEMI type II 2. 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 Acute symptomatic anemia; secondary to iron deficiency anemia, secondary to GI bleed suspected. status post EGD/colonoscopy showing erosive esophagitis and 2 spots of AV malformation s/p cautery by surgery team. No active bleeding is noticed. 4. Hyperlipidemia 5. Coronary artery disease 6. Gastroesophageal reflux disease 7. Hypertension Hospital course: 68-year-old male who has a past medical history significant for coronary artery disease. Patient states he has had multiple bypasses. Patient presents because of dyspnea of 1 week duration. Patient was evaluated by seater grinder and cardiac medication was adjusted however patient also was noticed to be anemic requiring 2 units of blood transfusion. Patient evaluated by surgery team and he found to have 2 AV malformation status post electrocautery. No active bleeding was noted. While EGD showed erosive esophagitis. Hemoglobin remained stable since yesterday imp roved to 8.6 and today 8.9. Patient started on iron pills and tolerated well. He is continued on aspirin 81 mg through his hospital stay while Plavix was placed on hold. Per surgery team Plavix can be resumed after 48 hours. Patient was instructed to resume his Plavix tomorrow and he agrees. Patient confirms to me he have aspirin and Plavix and other cardiac medication at home. Prescription provided for the new medication or new doses. Since yesterday patient was eager to go home. He was denied chest pain or dyspnea. No blood in the stool no abdominal pain or vomiting and he tolerates diet. Gait is normal. I agreed to monitor him for another 24 hours, this morning his hemoglobin improved up to 8.9. He kept doing well clinically, he remains asymptomatic. We discussed the case with cardiology team who cleared her for discharge Surgery team already signed off the case with their return recommendation is noted Patient was cleared for discharge by seater grinder General Surgery team Problems and management plan were discussed with the patient and he verbalized understanding and acceptance Patient was found stable and can be discharged home in guarded prognosis however he needs follow-up as an outpatient. Patient was instructed to follow up with PCP Dr. Norris within one to 2 days to check his hemoglobin and patient agrees Also patient was instructed to follow-up with his seater grinder from another facility Dr. Wylie, he agrees to call and make appointment and that he has his contact information Patient was instructed to follow-up with Dr. Mccormack in 2 weeks after discharg e and he agrees Physical exam Gen: patient is a AAOx3, no distress CVS: S1-S2, RRR, no murmur Lungs: B/L CTA, no wheezing Abdomen: soft, no distention, no tenderness, positive bowel sounds Extremity: no leg edema or induration Time spent more than 35 minutes Plan - Discharge Summary Discharge Rx Participant: Yes New Discharge Prescriptions: New Spironolactone [Aldactone] 12.5 mg PO DAILY #30 tab Torsemide [Demadex] 10 mg PO DAILY #30 tab Ferrous Sulfate [Iron (65 MG Elemental)] 325 mg PO BID-W/MEALS #60 tab Atorvastatin [Lipitor] 40 mg PO HS #30 tab Pantoprazole Sodium [Protonix] 40 mg PO BID #60 tab carvediloL [Coreg] 3.125 mg PO BID-W/MEALS #60 tab Sacubitril/Valsartan [Entresto 24 mg-26 mg Tablet] 1 each PO BID #60 tab Dapagliflozin Propanediol [Farxiga] 10 mg PO DAILY #30 tab Continue Clopidogrel [Plavix] 75 mg PO DAILY Aspirin 81 mg PO DAILY Isosorbide Mononitrate ER [Imdur] 30 mg PO DAILY Discontinued Pregabalin [Lyrica] 75 mg PO HS Ezetimibe [Zetia] 10 mg PO DAILY carvediloL [Coreg] 3.125 mg PO BID Sacubitril/Valsartan [Entresto 49 mg-51 mg Tablet] 1 tab PO BID HYDROcodone/APAP 7.5-325MG [Dudley 7.5-325] 1 tab PO TID PRN PRN Reason: Pain Rosuvastatin [Crestor] 40 mg PO DAILY Discharge Medication List Aspirin 81 mg PO DAILY 10/14/21 [History] Clopidogrel [Plavix] 75 mg PO DAILY 10/14/21 [History] Isosorbide Mononitrate ER [Imdur] 30 mg PO DAILY 04/20/24 [History] Atorvastatin [Lipitor] 40 mg PO HS #30 tab 04/24/24 [Rx] Dapagliflozin Propanediol [Farxiga] 10 mg PO DAILY #30 tab 04/24/24 [Rx] Ferrous Sulfate [Iron (65 MG Elemental)] 325 mg PO BID-W/MEALS #60 tab 04/24/24 [Rx] Pantoprazole Sodium [Protonix] 40 mg PO BID #60 tab 04/24/24 [Rx] Sacubitril/Valsartan [Entresto 24 mg-26 mg Tablet] 1 each PO BID #60 tab 04/24/24 [Rx] Spironolactone [Aldactone] 12.5 mg PO DAILY #30 tab 04/24/24 [Rx] Torsemide [Demadex] 10 mg PO DAILY #30 tab 04/24/24 [Rx] carvediloL [Coreg] 3.125 mg PO BID-W/MEALS #60 tab 04/24/24 [Rx] Follow up Appointment(s)/Referral(s): Dragan Javier MD [Medical Doctor] - 1 Week (Patient to make appointments based on own schedule ) Gracy Churchill MD [Primary Care Provider] - 1-2 days (Patient to make appointments based on own schedule) Sandee Mccormack MD [STAFF PHYSICIAN] - 1 Week (Patient to make appointment at own time ) Patient Instructions/Handouts: Anemia (GEN) Activity/Diet/Wound Care/Special Instructions: Heart healthy diet Activity is restricted till you see your doctor We recommend you follow-up with your own seater grinder Dr. Wylie at [facility], you have the contact information, please call to make an appointment within 1 week We recommend to follow-up with your PCP office Dr. Churchill heart office in 1 to 2 days and check your hemoglobin Please return to the hospital if you have any evidence of blood in the stool, black color of the stool, dizziness, lightheadedness, sweating, palpitation. Also call 911 or come to emergency room if you develop Fever shortness of breath or any other concerning symptoms Resume your Plavix tomorrow. Continue with baby aspirin Discharge Disposition: HOME SELF-CARE
== END 2024-04-24 15:00 | disposition home or self-care (01) | DRG 377 ==
LOC: EC 10:10 → 3SCARD 13:17
PROVIDERS: ADMIT Internal Medicine; ATTEND Internal Medicine
PROC: 30233N1 Transfusion of Nonautologous Red Blood Cells into Peripheral Vein, Percutaneous Approach (ICD-10-PCS; 2024-04-20)
PROC: 0DJ08ZZ Inspection of Upper Intestinal Tract, Via Natural or Artificial Opening Endoscopic (ICD-10-PCS; principal; 2024-04-22 07:55)
PROC: 0W3P8ZZ Control Bleeding in Gastrointestinal Tract, Via Natural or Artificial Opening Endoscopic (ICD-10-PCS; 2024-04-22 07:55)
DX: K55.21 Angiodysplasia of colon with hemorrhage (principal); I21.A1 Myocardial infarction type 2; I50.41 Acute combined systolic (congestive) and diastolic (congestive) heart failure; D62 Acute posthemorrhagic anemia; I43 Cardiomyopathy in diseases classified elsewhere; K22.11 Ulcer of esophagus with bleeding; I11.0 Hypertensive heart disease with heart failure; D50.9 Iron deficiency anemia, unspecified; I34.0 Nonrheumatic mitral (valve) insufficiency; J44.9 Chronic obstructive pulmonary disease, unspecified; K44.9 Diaphragmatic hernia without obstruction or gangrene; K63.5 Polyp of colon; K64.8 Other hemorrhoids; I25.5 Ischemic cardiomyopathy; K29.60 Other gastritis without bleeding; E78.5 Hyperlipidemia, unspecified; K21.9 Gastro-esophageal reflux disease without esophagitis; I25.10 Atherosclerotic heart disease of native coronary artery without angina pectoris; I25.2 Old myocardial infarction; Z79.82 Long term (current) use of aspirin; Z79.02 Long term (current) use of antithrombotics/antiplatelets; Z95.1 Presence of aortocoronary bypass graft; Z95.5 Presence of coronary angioplasty implant and graft; Z87.891 Personal history of nicotine dependence; Z79.899 Other long term (current) drug therapy; Z85.46 Personal history of malignant neoplasm of prostate; Z92.3 Personal history of irradiation; Z90.79 Acquired absence of other genital organ(s)
CPT/HCPCS: 36415; 36430; 43235; 45382; 71046; 80048; 80053; 80061; 82272; 82728; 83036; 83540; 83550; 83605; 83735; 83880; 84439; 84443; 84484; 85025; 85027; 85379; 85610; 85730; 86850; 86900; 86901; 86920; 87636; 93005; 93306; 96361; 96365; 99285

== ENCOUNTER → 2024-04-26 | Outpatient (CLI) | payer MEDICARE ==
[2024-04-26 13:08] LABS: Anisocytosis Slight; Basophils % (A) 0 %; Eosinophils # (A) 0.1 k/uL (0-0.7); Eosinophils % (A) 1 %; HCT 32.6 % (39.0-53.0); HGB 10.2 gm/dL (13.0-17.5); Hypochromasia Marked; Lymphocytes % (A) 16 %; MCH 27.6 pg (25.0-35.0); MCHC 31.2 g/dL (31.0-37.0); MCV 88.4 fL (80.0-100.0); Mean Platelet Volume 7.2; Monocytes # (A) 0.5 k/uL (0-1.0); Monocytes % (A) 8 %; Neutrophils # (A) 4.5 k/uL (1.3-7.7); Neutrophils % (A) 70 %; Platelet Count 260 k/uL (150-450); RBC 3.69 m/uL (4.30-5.90); WBC 6.3 k/uL (3.8-10.6)
== END | disposition home or self-care (01) ==
LOC: LABWHC1 11:47
PROVIDERS: ATTEND Internal Medicine
DX: D50.0 Iron deficiency anemia secondary to blood loss (chronic) (principal)
CPT/HCPCS: 36415; 85025

== ENCOUNTER → 2024-04-29 | Outpatient (CLI) | payer MEDICARE ==
[2024-04-29 10:06] LABS: Anisocytosis Slight; Basophils % (A) 0 %; Eosinophils # (A) 0.1 k/uL (0-0.7); Eosinophils % (A) 1 %; HCT 35.1 % (39.0-53.0); Hypochromasia Marked; Lymphocytes # (A) 1.6 k/uL (1.0-4.8); Lymphocytes % (A) 20 %; MCH 27.6 pg (25.0-35.0); MCHC 31.3 g/dL (31.0-37.0); MCV 88.1 fL (80.0-100.0); Mean Platelet Volume 7.2; Monocytes # (A) 0.4 k/uL (0-1.0); Monocytes % (A) 5 %; Neutrophils # (A) 5.6 k/uL (1.3-7.7); Neutrophils % (A) 71 %; Platelet Count 279 k/uL (150-450); RBC 3.99 m/uL (4.30-5.90); RDW 17.1 % (11.5-15.5)
== END | disposition home or self-care (01) ==
LOC: LABWHC1 09:45
PROVIDERS: ATTEND Internal Medicine
DX: D50.0 Iron deficiency anemia secondary to blood loss (chronic) (principal)
CPT/HCPCS: 36415; 85025

== ENCOUNTER → 2024-05-02 | Outpatient (CLI) | payer MEDICARE ==
[2024-05-02 08:12] LABS: Anisocytosis Slight; Basophils % (A) 0 %; Eosinophils # (A) 0.1 k/uL (0-0.7); Eosinophils % (A) 1 %; HCT 39.4 % (39.0-53.0); HGB 12.6 gm/dL (13.0-17.5); Hypochromasia Marked; Lymphocytes # (A) 1.5 k/uL (1.0-4.8); Lymphocytes % (A) 17 %; MCH 28.1 pg (25.0-35.0); MCHC 31.9 g/dL (31.0-37.0); MCV 88.3 fL (80.0-100.0); Monocytes # (A) 0.6 k/uL (0-1.0); Monocytes % (A) 7 %; Neutrophils # (A) 6.1 k/uL (1.3-7.7); Neutrophils % (A) 72 %; Platelet Count 303 k/uL (150-450); RBC 4.46 m/uL (4.30-5.90); RDW 17.5 % (11.5-15.5); WBC 8.4 k/uL (3.8-10.6)
== END | disposition home or self-care (01) ==
LOC: LABWHC1 07:54
PROVIDERS: ATTEND Internal Medicine
DX: D50.0 Iron deficiency anemia secondary to blood loss (chronic) (principal)
CPT/HCPCS: 36415; 85025

== ENCOUNTER 2024-05-03 20:59 | Emergency (ER) | payer MEDICARE ==
[2024-05-03 21:13] LABS: Glucose,Whole Blood 109 mg/dL (70-110)
[2024-05-03 21:14] VITALS: TEMP 98.4
--- NOTE | 2024-05-03 21:32 | ED ---
General Adult HPI - General Chief complaint: Syncope Stated complaint: Syncope Time Seen by Provider: 05/03/24 21:02 Source: patient, EMS Mode of arrival: EMS Limitations: no limitations - History of Present Illness Initial comments: Patient is a 68-year-old gentleman with a past medical history of CAD on Plavix, CHF, recent hospitalization for GI bleed, resenting today for blurred vision and dizziness. Patient states that he had a mild headache earlier today. While he was sitting at dinner this evening he experienced lightheadedness and blurred vi milton in both eyes. His noticed that he was having difficulty writing the check at the restaurant they were dining at. They drove home and upon arrival home the patient got out of his car and collapsed onto his knees. He did not lose consciousness or hit his head and states he felt dizzy and weak. Patient's called 911 and brought him into their house. His symptoms resolved spontaneously. Patient currently endorses mild neck discomfort stating his neck feels like it is sore. He denies any headache, blurred vision or changes in vision currently, slurred speech, confusion, chest pain, shortness of breath, abdominal pain, nausea, vomiting, no fevers or chills. He states that his stools are dark however he is now on iron supplementation and suspect this is the reason for his dark stools. - Related Data Home Medications Medication Instructions Recorded Confirmed Aspirin 81 mg PO DAILY 10/14/21 04/20/24 Clopidogrel [Plavix] 75 mg PO DAILY 10/14/21 04/22/24 Isosorbide Mononitrate ER [Imdur] 30 mg PO DAILY 04/20/24 04/20/24 Previous Rx's Medication Instructions Recorded Atorvastatin [Lipitor] 40 mg PO HS #30 tab 04/24/24 Dapagliflozin Propanediol [Farxiga] 10 mg PO DAILY #30 tab 04/24/24 Ferrous Sulfate [Iron (65 MG 325 mg PO BID-W/MEALS #60 tab 04/24/24 Elemental)] Pantoprazole Sodium [Protonix] 40 mg PO BID #60 tab 04/24/24 Sacubitril/Valsartan [Entresto 24 1 each PO BID #60 tab 04/24/24 mg-26 mg Tablet] Spironolactone [Aldactone] 12.5 mg PO DAILY #30 tab 04/24/24 Torsemide [Demadex] 10 mg PO DAILY #30 tab 04/24/24 carvediloL [Coreg] 3.125 mg PO BID-W/MEALS #60 tab 04/24/24 Allergies Allergy/AdvReac Type Severity Reaction Status Date / Time No Known Allergies Allergy Verified 05/03/24 21:14 Review of Systems ROS Statement: Those systems with pertinent positive or pertinent negative responses have been documented in the HPI. ROS Other: All systems not noted in ROS Statement are negative. Past Medical History Past Medical History: Coronary Artery Disease (CAD), Cancer, Hyperlipidemia, Hypertension, Myocardial Infarction (AR), Prostate Disorder Additional Past Medical History / Comment(s): hx. prostate cancer 2 yrs. ago-had radiation & surg. Last Myocardial Infarction Date:: unk History of Any Multi-Drug Resistant Organisms: None Reported Past Surgical History: Appendectomy, Coronary Bypass/CABG, Heart Catheterization With Stent, Orthopedic Surgery, Prostate Surgery Additional Past Surgical History / Comment(s): double bypass years ago-then had re-do few years later, prostatectomy, rotator cuff repair Past Anesthesia/Blood Transfusion Reactions: No Reported Reaction Date of Last Stent Placement:: 10 yrs. ago Past Psychological History: No Psychological Hx Reported Smoking Status: Former smoker Past Alcohol Use History: None Reported Past Drug Use History: None Reported - Past Family History Mother Family Medical History: Cancer, Coronary Artery Disease (CAD) Father Family Medical History: Cancer, Coronary Artery Disease (CAD) General Exam - General Exam Comments Initial Comments: PE: CONSTITUTIONAL: [no apparent distress, well appearing] SKIN: [warm, dry, no jaundice, hives or petechiae] EYES:[ pupils are equally round, extraocular movements intact without nystagmus, clear conjunctiva, non-icteric sclera] HENT: [normocephalic, atraumatic, moist mucus membranes, oropharynx clear without exudates] NECK: , [Full range of motion, normal appearance no midline neck pain, no carotid bruits, no tenderness to palpation of the neck] PULMONARY: [clear to auscultation without wheezes, rhonchi, or rales, normal excursion, no accessory muscle use and no stridor] CARDIOVASCULAR:[ regular rate, rhythm, normal S1 and S2. No appreciated murmurs, rubs or gallops. Strong radial pulses with intact distal perfusion. No lower extremity edema] GASTROINTESTINAL: [soft, active bowel sounds throughout, non-tender, non- distended, no palpable masses, no rebound or guarding. No hepatosplenomegaly] GENITOURINARY: MUSCULOSKELETAL: [Extremities have no gross deformity, no edema, redness, or swelling. No calf swelling ] NEUROLOGIC: [_a/o x 3, GCS 15, normal mentation and speech. Moves all extremities x 4 without motor or sensory deficit, cranial nerves: II (visual deleon without defects), III, IV and (extraocular movements are intact, pupils are equal with normal reaction to light), V (intact facial sensation and jaw opening), VII (no facial droop), IX and X (normal palate movement, midline uvula, normal voice), XI (symmetrical shoulder shrug and lateral head rotation against resistance), XII (midline tongue protrusion). Motor strength is 5/5 in all extremities. No abnormal movements. Normal muscle tone. Sensation to light touch is intact bilaterally. No cerebellar signs ([id number], [id number], and rapid alternating movements are normal)] PSYCHIATRIC:[ _normal mood and affect, thought process is clear and linear] Limitations: no limitations Course Vital Signs 05/03/24 05/03/24 05/03/24 21:00 21:35 22:23 Temperature 98.4 F Pulse Rate 72 85 Respiratory 16 16 Rate Blood Pressure 93/41 84/43 106/68 Blood Pressure [Left Arm Sitting] Blood Pressure [Left Arm Standing] Blood Pressure [Left Arm Supine] O2 Sat by Pulse 95 99 Oximetry 05/03/24 05/03/24 05/04/24 22:30 23:17 01:03 Temperature Pulse Rate 85 82 Respiratory 18 18 Rate Blood Pressure 100/51 94/46 Blood Pressure 91/43 [Left Arm Sitting] Blood Pressure 77/49 [Left Arm Standing] Blood Pressure 95/52 [Left Arm Supine] O2 Sat by Pulse 96 98 Oximetry EKG Findings - EKG Comments: EKG Findings:: Reviewed EKG, sinus rhythm with shortened CA interval, got to rate 72 beats minute CA interval 62 ms, QRS duration 152 ms QT/QTc 420/443 ms, VPC noted, right bundle branch block, left axis deviation, compared to EKG performed on 04/21/2024, T wave flattening in V3 noted new today, questionable there is some flattening of the T wave in V4 and V5 when compared to prior no clear new ST elevations or depressions Medical Decision Making - Medical Decision Making Was pt. sent in by a medical professional or institution (, [facility], [facility], urgent care, hospital, or halfway...) When possible be specific @ -No Did you speak to anyone other than the patient for history (EMS, parent, family, police, friend...)? What history was obtained from this source @ -Spoke with patient's who assisted in writing history, she did not witness patient to be confused or lose consciousness Did you review nursing and triage notes (agree or disagree)? Why? @ -I reviewed nursing and triage notes Were old charts reviewed (outside hosp., previous admission, EMS record, old EKG, old radiological studies, urgent care reports/EKG's, halfway records)? Report findings Medical records reviewedReviewed echocardiogram from 04/20/2024 notable for severely increased left ventricular systolic volume, reduced global left ventricular systolic function, ejection fraction of 30 to 35% Differential Diagnosis (chest pain, altered mental status, abdominal pain women, abdominal pain men, vaginal bleeding, weakness, fever, dyspnea, syncope, headache, dizziness, GI bleed, back pain, seizure, CVA, palpatations, mental health, musculoskeletal)? Differential diagnose remains broad our top considerations include Valvular disease, hypertrophic cardiomyopathy, tamponade, tachycardia, bradycardia, ACS hypovolemia, hemorrhage, vertebral artery dissection, anemia, intracranial hemorrhage, seizure, hypoglycemia, electrolyte abnormality this is not meant to be an all-inclusive list. EKG interpreted by me (3pts min.). @ -As above X-rays interpreted by me (1pt min.). @I see no evidence of pneumothorax, cardiomegaly, pleural effusions or or consolidations on chest x-ray CT interpreted by me (1pt min.). @I see no evidence of hemorrhage, mass effect on CT brain, I see no evidence of large vessel occlusion or dissection on CTA U/S interpreted by me (1pt. min.). @ -None done What testing was considered but not performed or refused? (CT, X-rays, U/S, labs)? Why? @ -None What meds were considered but not given or refused? Why? @ -None Did you discuss the management of the patient with other professionals (professionals i.e. , PA, WHEEL ROLLER, lab, RT, psych nurse, clinical social work therapist, billiard table mechanic, teacher, security patrol officer, skilled nursing case manager)? Give summary Case discussed with Dr. Urbina, [facility] accepting physician Was smoking cessation discussed for >3mins.? @ -No Was critical care preformed (if so, how long)? @Yes, 35 minutes Were there social determinants of health that impacted care today? How? (Homelessness, low income, unemployed, alcoholism, drug addiction, transportation, low edu. Level, literacy, decrease access to med. care, correction, rehab)? @ -No Was there de-escalation of care discussed even if they declined (Discuss DNR or withdrawal of care, Hospice)? @ -No What co-morbidities impacted this encounter? (DM, HTN, Smoking, COPD, CAD, Cancer, CVA, ARF, Chemo, Hep., AIDS, mental health diagnosis, sleep apnea, morbid obesity)? @ -CAD, CHF Was patient admitted / discharged? Hospital course, mention meds given and route, prescriptions, significant lab abnormalities, going to OR and other pertinent info. @ -Hospital course patient is a pleasant 68-year-old gentleman past medical history of CHF, recent hospitalization for GI bleed, CAD presenting today for blurred vision and dizziness that has since resolved. Complete history and physical exam obtained by myself. Blood glucose on arrival 109. Blood pressure 93/41 with a MAP of 68, no tachycardia or hypoxia noted. Unremarkable neurologic exam. Plan for CT brain, CTA to assess for evidence of mass or dissection, comprehensive labs, electrolytes, magnesium level, patient has also received blood transfusion recently so obtain an ionized calcium level, troponin, BNP and D-dimer due to patient's recent hospitalization. 500 cc IV fluids ordered given history of CHF, patient play declined pain control this time. Hemoglobin 11, was previously 12.6 on 05/02/2024, previously 11 on 04/29/2024, creatinine reflects MYA today 1.99 previously 0.97 GFR 34, on 04/23/2024 was 81, troponin 0.035, on 04/20/2024 when patient was here for GI bleed was 1.290, BNP 3430, when patient was here on 04/10/[address] brain, I see no evidence of hemorrhage or mass effect, reviewed CT I do not see evidence of large vessel occlusion or dissection however currently pending read by radiologist,, personally reviewed patient's chest x-ray do not see evidence of cardiomegaly, pleural effusions or consolidations. Suspect patient's dizziness today secondary to orthostatic hypotension due to patient's MYA. Unclear if this is secondary to medications versus CHF versus other, he will require nephrology consultation due to his complex medical hx. Pt's orthostatic vital signs positive, Orthostatic vital signs showed a blood pressure of 95/52 while supine with a MAP of 66, blood pressure 91/43 with a MAP of 59 while sitting, upon standing blood pressure decreased to 77/49 with a MAP of 58. On my reassessment patient has a blood pressure of 95 systolic with a MAP of 78. Due to patient's elevated BNP I will cautiously fluid resuscitate. He has received 5 and cc IV fluid bolus, will put patient on maintenance fluids at 100 cc an hour. Updated patient and to findings, plan for admission for nephrology consultation due to MYA. 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 Discussed with patient risks benefits of transfer. Patient agreeable with plan of transfer. Case was discussed with Dr. Urbina, [facility] emergency department, kindly accepts patient for transfer. Patient transferred in stable condition. Records, including discs of imaging sent with pt. Undiagnosed new problem with uncertain prognosis? @ -No Drug Therapy requiring intensive monitoring for toxicity (Heparin, Nitro, Insuli n, Cardizem)? @ -No Were any procedures done? @ -No Diagnosis/symptom? MYA, CHF, orthostatic hypotension, near syncope Acute, or Chronic, or Acute on Chronic? @Acute, acute on chronic Uncomplicated (without systemic symptoms) or Complicated (systemic symptoms)? Complicated Side effects of treatment? @ -No Exacerbation, Progression, or Severe Exacerbation? @ -No Poses a threat to life or bodily function? How? (Chest pain, USA, AR, pneumonia, PE, COPD, DKA, ARF, appy, cholecystitis, CVA, Diverticulitis, Homicidal, Suicidal, threat to staff... and all critical care pts) @Yes - Lab Data Result diagrams: 05/03/24 21:15 05/03/24 21:15 Lab Results 05/03/24 05/03/24 05/03/24 Range/Units 21:12 21:15 21:15 WBC 5.6 (3.8-10.6) k/uL RBC 4.03 L (4.30-5.90) m/uL Hgb 11.0 L (13.0-17.5) gm/dL Hct 35.5 L (39.0-53.0) % MCV 88.3 (80.0-100.0) fL MCH 27.4 (25.0-35.0) pg MCHC 31.1 (31.0-37.0) g/dL RDW 17.8 H (11.5-15.5) % Plt Count 252 (150-450) k/uL MPV 7.1 Neutrophils % 78 % Lymphocytes % 9 % Monocytes % 9 % Eosinophils % 1 % Basophils % 0 % Neutrophils # 4.4 (1.3-7.7) k/uL Lymphocytes # 0.5 L (1.0-4.8) k/uL Monocytes # 0.5 (0-1.0) k/uL Eosinophils # 0.0 (0-0.7) k/uL Basophils # 0.0 (0-0.2) k/uL Hypochromasia Moderate Anisocytosis Slight PT 10.9 (10.0-12.5) sec INR 1.0 (<1.2) APTT 23.1 (22.0-30.0) sec D-Dimer 0.51 (<0.60) mg/L FEU Sodium (137-145) mmol/L Potassium (3.5-5.1) mmol/L Chloride (98-107) mmol/L Carbon Dioxide (22-30) mmol/L Anion Gap mmol/L BUN (9-20) mg/dL Creatinine (0.66-1.25) mg/dL Est GFR (CKD-EPI)AfAm (>60 ml/min/1.73 sqM) Est GFR (CKD-EPI)NonAf (>60 ml/min/1.73 sqM) Glucose (74-99) mg/dL POC Glucose (mg/dL) 109 (70-110) mg/dL POC Glu Color Maker ID [place] Calcium (8.4-10.2) mg/dL Ionized Calcium Eileen (4.5-5.3) mg/dL Magnesium (1.6-2.3) mg/dL Total Bilirubin (0.2-1.3) mg/dL AST (17-59) U/L ALT (4-49) U/L Alkaline Phosphatase (38-126) U/L Troponin I (0.000-0.034) ng/mL NT-Pro-B Natriuret Pep pg/mL Total Protein (6.3-8.2) g/dL Albumin (3.5-5.0) g/dL 05/03/24 05/03/24 Range/Units 21:15 21:15 WBC (3.8-10.6) k/uL RBC (4.30-5.90) m/uL Hgb (13.0-17.5) gm/dL Hct (39.0-53.0) % MCV (80.0-100.0) fL MCH (25.0-35.0) pg MCHC (31.0-37.0) g/dL RDW (11.5-15.5) % Plt Count (150-450) k/uL MPV Neutrophils % % Lymphocytes % % Monocytes % % Eosinophils % % Basophils % % Neutrophils # (1.3-7.7) k/uL Lymphocytes # (1.0-4.8) k/uL Monocytes # (0-1.0) k/uL Eosinophils # (0-0.7) k/uL Basophils # (0-0.2) k/uL Hypochromasia Anisocytosis PT (10.0-12.5) sec INR (<1.2) APTT (22.0-30.0) sec D-Dimer (<0.60) mg/L FEU Sodium 135 L (137-145) mmol/L Potassium 4.4 (3.5-5.1) mmol/L Chloride 98 (98-107) mmol/L Carbon Dioxide 26 (22-30) mmol/L Anion Gap 11 mmol/L BUN 40 H (9-20) mg/dL Creatinine 1.99 H (0.66-1.25) mg/dL Est GFR (CKD-EPI)AfAm 39 (>60 ml/min/1.73 sqM) Est GFR (CKD-EPI)NonAf 34 (>60 ml/min/1.73 sqM) Glucose 104 H (74-99) mg/dL POC Glucose (mg/dL) (70-110) mg/dL POC Glu Color Maker ID Calcium 10.0 (8.4-10.2) mg/dL Ionized Calcium Eileen 5.2 (4.5-5.3) mg/dL Magnesium 2.3 (1.6-2.3) mg/dL Total Bilirubin 0.4 (0.2-1.3) mg/dL AST 24 (17-59) U/L ALT 22 (4-49) U/L Alkaline Phosphatase 66 (38-126) U/L Troponin I 0.035 H* (0.000-0.034) ng/mL NT-Pro-B Natriuret Pep 3430 pg/mL Total Protein 6.9 (6.3-8.2) g/dL Albumin 4.3 (3.5-5.0) g/dL Disposition Clinical Impression: MAY (acute kidney injury), Orthostatic hypotension Disposition: OTHER INSTITUTION NOT DEFINED Referrals: Gracy Churchill MD [Primary Care Provider] - 1-2 days - Out of Hospital Transfer - Req. Specs Out of Hospital Transfer - Requested Specifics: Other Emergency Center ([facility])
[2024-05-03 21:33] LABS: Anisocytosis Slight; Basophils % (A) 0 %; Eosinophils % (A) 1 %; HCT 35.5 % (39.0-53.0); Hypochromasia Moderate; Lymphocytes # (A) 0.5 k/uL (1.0-4.8); Lymphocytes % (A) 9 %; MCH 27.4 pg (25.0-35.0); MCHC 31.1 g/dL (31.0-37.0); MCV 88.3 fL (80.0-100.0); Mean Platelet Volume 7.1; Monocytes # (A) 0.5 k/uL (0-1.0); Monocytes % (A) 9 %; Neutrophils # (A) 4.4 k/uL (1.3-7.7); Neutrophils % (A) 78 %; Platelet Count 252 k/uL (150-450); RBC 4.03 m/uL (4.30-5.90); RDW 17.8 % (11.5-15.5); WBC 5.6 k/uL (3.8-10.6)
[2024-05-03 21:38] LABS: Ionized Calcium 5.2 mg/dL (4.5-5.3)
[2024-05-03] MEDS: SODIUM CHLORIDE 0.9% 500 ML 500 ML IV STA (21:43)
[2024-05-03 21:48] LABS: ALT 22 U/L (4-49); AST 24 U/L (17-59); African American GFR (CKD) 39 (>60 ml/min/1.73 sqM); Albumin 4.3 g/dL (3.5-5.0); Alkaline Phosphatase 66 U/L (38-126); Anion Gap 11 mmol/L; Blood Urea Nitrogen 40 mg/dL (9-20); Carbon Dioxide 26 mmol/L (22-30); Chloride 98 mmol/L (98-107); Glucose 104 mg/dL (74-99); Magnesium 2.3 mg/dL (1.6-2.3); Non-African American GFR(CKD) 34 (>60 ml/min/1.73 sqM); Potassium 4.4 mmol/L (3.5-5.1); Sodium 135 mmol/L (137-145); Total Bilirubin 0.4 mg/dL (0.2-1.3); Total Protein 6.9 g/dL (6.3-8.2)
[2024-05-03 21:53] LABS: Partial Thromboplastin Time 23.1 sec (22.0-30.0); Prothrombin Time 10.9 sec (10.0-12.5)
[2024-05-03 21:56] LABS: NT-Pro-B-Type Natriuretic Pept 3430 pg/mL
[2024-05-03 23:18] VITALS: RESP 18
[2024-05-04] MEDS: SODIUM CHLORIDE 0.9% 1,000 ML IV SCH (00:36)
[2024-05-04 01:04] VITALS: BP 94/46; PULSE 82
--- NOTE | 2024-05-04 01:26 | CT ---
EXAM: CT Head Without Intravenous Contrast CLINICAL HISTORY: ITS.REASON CT Reason: syncope TECHNIQUE: Axial computed tomography images of the head/brain without intravenous contrast. CTDI is 48.8 mGy and DLP is 1244 mGy-cm. This CT exam was performed using one or more of the following dose reduction techniques: automated exposure control, adjustment of the mA and/or kV according to patient size, and/or use of iterative reconstruction technique. COMPARISON: No relevant prior studies available. FINDINGS: No acute intracranial hemorrhage. No midline shift or mass effect. The territorial espinosa-white matter differentiation is maintained throughout. Age-related cerebral volume loss. Periventricular and subcortical white matter hypoattenuation, consistent with chronic microangiopathy. The visualized orbits appear grossly unremarkable. The calvarium is intact. The visualized paranasal sinuses and mastoid air cells are grossly clear. IMPRESSION: No acute intracranial hemorrhage, midline shift, or mass effect.
--- NOTE | 2024-05-04 01:37 | CT ---
EXAM: CT Angiography Head With Intravenous Contrast CLINICAL HISTORY: ITS.REASON CT Reason: dizzy, blurred vision, neck discomfort TECHNIQUE: Axial computed tomographic angiography images of the head with intravenous contrast. CTDI is 11.3 mGy and DLP is 576.1 mGy-cm. This CT exam was performed using one or more of the following dose reduction techniques: automated exposure control, adjustment of the mA and/or kV according to patient size, and/or use of iterative reconstruction technique. MIP reconstructed images were created and reviewed. COMPARISON: No relevant prior studies available. FINDINGS: The dural venous sinuses are patent. Right internal carotid artery: No acute findings. Intracranial segment is patent with no significant stenosis. No aneurysm. Right anterior cerebral artery: Unremarkable. No occlusion or significant stenosis. No aneurysm. Right middle cerebral artery: Unremarkable. No occlusion or significant stenosis. No aneurysm. Right posterior cerebral artery: Unremarkable. No occlusion or significant stenosis. No aneurysm. Right vertebral artery: Unremarkable as visualized. Left internal carotid artery: No acute findings. Intracranial segment is patent with no significant stenosis. No aneurysm. Left anterior cerebral artery: Unremarkable. No occlusion or significant stenosis. No aneurysm. Left middle cerebral artery: Unremarkable. No occlusion or significant stenosis. No aneurysm. Left posterior cerebral artery: Unremarkable. No occlusion or significant stenosis. No aneurysm. Left vertebral artery: Unremarkable as visualized. Basilar artery: Unremarkable. No occlusion or significant stenosis. No aneurysm. IMPRESSION: Negative CT angiogram of the head. EXAM: CT Angiography Neck With Intravenous Contrast CLINICAL HISTORY: ITS.REASON CT Reason: dizzy, blurred vision, neck discomfort TECHNIQUE: Routine carotid CT angiography protocol was performed with intravenous contrast. NASCET criteria using the distal ICAs for comparison were used for evaluation of stenoses. CTDI is 11.3 mGy and DLP is 576.1 mGy-cm. This CT exam was performed using one or more of the following dose reduction techniques: automated exposure control, adjustment of the mA and/or kV according to patient size, and/or use of iterative reconstruction technique. MIP reconstructed images were created and reviewed. COMPARISON: None. FINDINGS: VASCULATURE: Right common carotid artery: Unremarkable. No occlusion or significant stenosis. No dissection. Right internal carotid artery: Unremarkable. Extracranial segment is patent with no occlusion or significant stenosis. No dissection. Right external carotid artery: Unremarkable. No occlusion. Right vertebral artery: Unremarkable. No occlusion or significant stenosis. No dissection. Left common carotid artery: There is a 70% stenosis of the proximal left ICA. No dissection. Left internal carotid artery: Unremarkable. Extracranial segment is patent with no occlusion or significant stenosis. No dissection. Left external carotid artery: Unremarkable. No occlusion. Left vertebral artery: Unremarkable. No occlusion or significant stenosis. No dissection. NECK: Bones/joints: Status post median sternotomy. No acute fracture. Soft tissues: Prominent mediastinal and hilar left nodes. Status post CABG. Lung apices: Bronchitis. CAROTID STENOSIS REFERENCE USING NASCET CRITERIA: % ICA stenosis = (1 - narrowest ICA diameter/diameter of distal cervical ICA) x 100. Mild - <50% stenosis. Moderate - 50-69% stenosis. Severe - 70-94% stenosis. Near occlusion - 95-99% stenosis. Occluded - 100% stenosis. IMPRESSION: There is a 70% stenosis of the proximal left ICA.
--- NOTE | 2024-05-04 06:40 | XR ---
EXAMINATION TYPE: XR chest 2V DATE OF EXAM: 05/03/2024 CLINICAL HISTORY: Syncope TECHNIQUE: Frontal and lateral views of the chest are obtained. COMPARISON: Chest x-ray April 20, 2024 FINDINGS: Overlying sternal wires and mediastinal clips are redemonstrated. There is no focal air sp matt opacity, pleural effusion, or pneumothorax seen. The cardiac silhouette size is stable and upper limits of normal. The osseous structures are intact. IMPRESSION: No acute cardiopulmonary process. [facility], , 05/04/2024 6:37 AM
== END 2024-05-04 01:18 | disposition other institution (70) ==
LOC: EC 20:59
DX: I95.1 Orthostatic hypotension (principal); N17.9 Acute kidney failure, unspecified; I45.10 Unspecified right bundle-branch block; I50.9 Heart failure, unspecified; I25.10 Atherosclerotic heart disease of native coronary artery without angina pectoris; Z87.891 Personal history of nicotine dependence
CPT/HCPCS: 36415; 93005; 85379; 83880; 80053; 82330; 83735; 84484; 85025; 85610; 85730; 71046; 70496; 70450; 70498; 99291; 96360; Q9967

== ENCOUNTER → 2024-05-17 | Outpatient (CLI) | payer MEDICARE ==
[2024-05-17 07:37] LABS: African American GFR (CKD) >90 (>60 ml/min/1.73 sqM); Blood Urea Nitrogen 22 mg/dL (9-20); Non-African American GFR(CKD) 82 (>60 ml/min/1.73 sqM)
--- NOTE | 2024-05-17 09:21 | CT ---
EXAMINATION TYPE: CT abdomen pelvis w con DATE OF EXAM: 05/17/2024 8:47 AM COMPARISON: None CLINICAL INDICATION: Male, 68 years old with history of K92.1 GASTROINTESTINAL HEMORRHAGE WITH MELENA ; Gastrointestial hemorrage with melena TECHNIQUE: Axial CT abdomen pelvis w con;Sagittal and coronal reformats were created on a separate w orkstation. Contrast used:100 mL of Isovue 300 with IV Contrast, (none if empty) Oral contrast used: with Oral Contrast (none if empty) CT DLP: 712.20 mGycm, Automated exposure control for dose reduction was used. FINDINGS: LOWER CHEST: Unremarkable ABDOMEN LIVER: Unremarkable GALLBLADDER AND BILE DUCTS: Unremarkable. PANCREAS: Unremarkable. SPLEEN: Unremarkable. ADRENAL GLANDS: Unremarkable. KIDNEYS AND URETERS: No evidence of hydronephrosis or renal calculus. The ureters are unremarkable. Vascular calcifications in the renal sinuses bilaterally. Left inferior renal simple appearing cyst. PELVIS BLADDER: No evidence for wall thickening or mass given limitations of exam. REPRODUCTIVE: Unremarkable. ABDOMEN & PELVIS STOMACH AND BOWEL: No evidence of bowel obstruction. Or scattered colonic diverticula. PERITONEUM/RETROPERITONEUM: No evidence of pneumoperitoneum or free fluid. VASCULATURE: Severe atherosclerotic calcifications are present throughout the abdominal aorta and its branches. No evidence of aortic aneurysm. MUSCULOSKELETAL: No acute osseous abnormalities. Mild disc degeneration changes are present throughou t the thoracolumbar spine. LYMPH NODES: No gross evidence for lymphadenopathy. SOFT TISSUE/ABDOMINAL WALL: Fat-containing umbilical hernia. IMPRESSION: 1. No evidence for gastrointestinal hemorrhage on non-GI bleed protocol exam. 2. Colonic diverticulosis. 3. Severe atherosclerosis. [facility], , 05/17/2024 9:18 AM
== END | disposition home or self-care (01) ==
LOC: RADCTMAIN 06:13
PROVIDERS: ATTEND Internal Medicine
DX: K92.1 Melena (principal); K57.30 Diverticulosis of large intestine without perforation or abscess without bleeding; I70.0 Atherosclerosis of aorta; K42.9 Umbilical hernia without obstruction or gangrene
CPT/HCPCS: 82565; 84520; 74177; 36415; Q9967

== ENCOUNTER → 2024-05-17 | Outpatient (CLI) | payer MEDICARE ==
[2024-05-17 16:44] LABS: Basophils # (A) 0.01 X 10*3/uL (0.00-0.10); Basophils % (A) 0.2 %; Eosinophils # (A) 0.03 X 10*3/uL (0.04-0.35); Eosinophils % (A) 0.5 %; HCT 38.5 % (39.6-50.0); HGB 11.1 g/dL (13.0-17.0); Lymphocytes # (A) 1.31 X 10*3/uL (0.90-5.00); MCH 26.6 pg (27.0-32.0); MCHC 28.8 g/dL (32.0-37.0); MCV 92.1 FL (80.0-97.0); Mean Platelet Volume 10.5 FL (9.5-12.2); Monocytes # (A) 0.48 X 10*3/uL (0.20-1.00); Monocytes % (A) 7.3 %; NRBC Per 100 WBC 0 X 10*3/uL (0.00-0.01); Neutrophils % (A) 71.5 %; Platelet Count 178 X 10*3/uL (140-440); RBC 4.18 X 10*6/uL (4.40-5.60); RDW 19.4 % (11.5-14.5); WBC 6.56 X 10*3/uL (4.50-10.00)
== END | disposition home or self-care (01) ==
LOC: LABWHC1 09:04
PROVIDERS: ATTEND Internal Medicine
DX: D64.9 Anemia, unspecified (principal)
CPT/HCPCS: 36415; 85025

== ENCOUNTER 2024-05-25 15:32 | Emergency (ER) | payer MEDICARE ==
--- NOTE | 2024-05-25 15:48 | ED ---
General Adult HPI - General Chief complaint: Chest Pain Stated complaint: poss STEMI Time Seen by Provider: 05/25/24 15:33 Source: EMS Mode of arrival: EMS Limitations: no limitations - History of Present Illness Initial comments: Patient presents to the ED by ambulance for evaluation. Patient states that he was cleaning off some snow about 2.5-3 hours ago when he developed dizziness, diaphoresis and diffuse chest tightness. Patient states that he has had an [place] in the past, and he states that he has had a CABG in the past. Patient states that he took 4 of his nitroglycerin tabs at home prior to calling for an ambulance. Patient also states that he took his Plavix this morning. Patient refused aspirin treatment by EMS due to history of GI bleed. Patient states that his chest pain is currently 7/10 in severity, but he declines pain medicati on at this time. Patient denies trauma or injury, fever or chills, headache, focal neuro deficit, neck/arm/jaw/back pain, pleuritic pain, dyspnea, cough or cold symptoms, palpitations, syncope, abdominal pain, nausea/vomiting/diarrhea, bloody or melanotic stool, dysuria or urinary symptoms, decreased urine output, leg or calf swelling or pain, or any other symptoms or complaints. - Related Data Home Medications Medication Instructions Recorded Confirmed Aspirin 81 mg PO DAILY 10/14/21 04/20/24 Clopidogrel [Plavix] 75 mg PO DAILY 10/14/21 04/22/24 Isosorbide Mononitrate ER [Imdur] 30 mg PO DAILY 04/20/24 04/20/24 Previous Rx's Medication Instructions Recorded Atorvastatin [Lipitor] 40 mg PO HS #30 tab 04/24/24 Dapagliflozin Propanediol [Farxiga] 10 mg PO DAILY #30 tab 04/24/24 Ferrous Sulfate [Iron (65 MG 325 mg PO BID-W/MEALS #60 tab 04/24/24 Elemental)] Pantoprazole Sodium [Protonix] 40 mg PO BID #60 tab 04/24/24 Sacubitril/Valsartan [Entresto 24 1 each PO BID #60 tab 04/24/24 mg-26 mg Tablet] Spironolactone [Aldactone] 12.5 mg PO DAILY #30 tab 04/24/24 Torsemide [Demadex] 10 mg PO DAILY #30 tab 04/24/24 carvediloL [Coreg] 3.125 mg PO BID-W/MEALS #60 tab 04/24/24 Allergies Allergy/AdvReac Type Severity Reaction Status Date / Time No Known Allergies Allergy Verified 05/25/24 15:40 Review of Systems ROS Statement: Those systems with pertinent positive or pertinent negative responses have been documented in the HPI. ROS Other: All systems not noted in ROS Statement are negative. Past Medical History Past Medical History: Coronary Artery Disease (CAD), Cancer, Hyperlipidemia, Hypertension, Myocardial Infarction ([place]), Prostate Disorder Additional Past Medical History / Comment(s): hx. prostate cancer 2 yrs. ago-had radiation & surg. Last Myocardial Infarction Date:: unk History of Any Multi-Drug Resistant Organisms: None Reported Past Surgical History: Appendectomy, Coronary Bypass/CABG, Heart Catheterization With Stent, Orthopedic Surgery, Prostate Surgery Additional Past Surgical History / Comment(s): double bypass years ago-then had re-do few years later, prostatectomy, rotator cuff repair Past Anesthesia/Blood Transfusion Reactions: No Reported Reaction Date of Last Stent Placement:: 10 yrs. ago Past Psychological History: No Psychological Hx Reported Smoking Status: Former smoker Past Alcohol Use History: None Reported Past Drug Use History: None Reported - Past Family History Mother Family Medical History: Cancer, Coronary Artery Disease (CAD) Father Family Medical History: Cancer, Coronary Artery Disease (CAD) General Exam Limitations: no limitations General appearance: alert, in no apparent distress Head exam: Present: atraumatic Eye exam: Present: normal appearance ENT exam: Present: mucous membranes moist Neck exam: Present: other (Trachea is in midline) Respiratory exam: Present: normal lung sounds bilaterally. Absent: respiratory distress, wheezes, rales, rhonchi, stridor, chest wall tenderness Cardiovascular Exam: Present: regular rate, normal rhythm, normal heart sounds, other (Normal radial pulses bilaterally) GI/Abdominal exam: Present: soft. Absent: distended, tenderness, guarding Extremities exam: Present: other (Negative Homans' sign bilaterally). Absent: tenderness, pedal edema, calf tenderness Neurological exam: Present: alert, oriented X3. Absent: motor sensory deficit Skin exam: Present: warm, dry, normal color Course Vital Signs 05/25/24 05/25/24 05/25/24 15:33 15:40 16:40 Temperature 97.4 F L Pulse Rate 92 86 92 Respiratory 18 18 16 Rate Blood Pressure 103/77 118/74 107/58 O2 Sat by Pulse 99 100 99 Oximetry 05/25/24 17:06 Temperature Pulse Rate 92 Respiratory 16 Rate Blood Pressure 113/69 O2 Sat by Pulse 99 Oximetry - Reevaluation(s) Reevaluation #1: 05/25/24 16:43 Patient states that his chest pain is currently improved. Patient remains alert and breathing comfortably. Patient remains in a sinus rhythm on the surveillance system monitor. Patient and are aware the patient's test results. Patient and are declining heparin anticoagulation at this time, stating that they want me to speak to the patient's commercial photographer, Dr. Booker at [facility], first. 05/25/24 17:25 I was finally able to reach Dr. Booker (outside sales account executive at [facility]). Patient's case and test results were discussed with him. He agrees with plan for IV heparin anticoagulation at this time, and he also accepts ambulance transfer to [facility] per the patient's request. He has no further recommendations at this time. 05/25/24 17:[address] Booker as above was discussed with the patient and his , they both agree with heparin anticoagulation therapy at this time. They also agree with transfer to [facility] at this time. 05/25/24 17:42 Case, H&P, test results, ED management and my discussion with Dr. Booker as above were discussed with [facility] ED physician, Dr. Ortega. He accepts ambulance transfer to the [facility] ED at this time. He has no further recommendations at this time. EKG Findings - EKG Comments: EKG Findings:: ED physician interpretation (interpreted by me): Sinus rhythm with borderline first-degree AV block, ventricular rate of 93 bpm, MO interval of 207 ms, right bundle branch block, LVH, QRS duration of 174 ms, normal QT interval, leftward axis, no significant change when compared to 05/03/2024 EKG Medical Decision Making - Medical Decision Making Was pt. sent in by a medical professional or institution (, PA, SOLAR ENERGY CONSULTANT AND DESIGNER, urgent care, hospital, or jail...) When possible be specific @ -No Did you speak to anyone other than the patient for history (EMS, parent, family, police, friend...)? What history was obtained from this source @ -No Did you review nursing and triage notes (agree or disagree)? Why? @ -I reviewed and agree with nursing and triage notes Were old charts reviewed (outside hosp., previous admission, EMS record, old EKG, old radiological studies, urgent care reports/EKG's, jail records)? Report findings @ -No old charts were reviewed Differential Diagnosis (chest pain, altered mental status, abdominal pain women, abdominal pain men, vaginal bleeding, weakness, fever, dyspnea, syncope, headache, dizziness, GI bleed, back pain, seizure, CVA, palpatations, mental health, musculoskeletal)? @ -Differential Chest Pain: Stable Angina, Unstable Angina, STEMI, NSTEMI, Aortic Dissection, Pneumothorax, Musculoskeletal, Esophageal Spasm GERD, chest wall pain, bradycardia, dysrhythmia, this is not meant to be an all-inclusive list. EKG interpreted by me (3pts min.). @ -As above X-rays interpreted by me (1pt min.). @ -Chest x-ray was reviewed myself and shows no acute cardiopulmonary abnormality. I agree with the radiologist's interpretation as above. CT interpreted by me (1pt min.). @ -None done U/S interpreted by me (1pt. min.). @ -None done What testing was considered but not performed or refused? (CT, X-rays, U/S, labs)? Why? @ -None What meds were considered but not given or refused? Why? @ -None Did you discuss the management of the patient with other professionals (professionals i.e. , PA, SOLAR ENERGY CONSULTANT AND DESIGNER, lab, RT, psych nurse, social worker masters, director cpg, teacher, staff command and control officer, senior case manager)? Give summary @ -As above Was smoking cessation discussed for >3mins.? @ -No Was critical care preformed (if so, how long)? @ -Yes, 45 minutes. Were there social determinants of health that impacted care today? How? (Homelessness, low income, unemployed, alcoholism, drug addiction, transportation, low edu. Level, literacy, decrease access to med. care, long-term, rehab)? @ -No Was there de-escalation of care discussed even if they declined (Discuss DNR or withdrawal of care, Hospice)? DNR status @ -No What co-morbidities impacted this encounter? (DM, HTN, Smoking, COPD, CAD, Cancer, CVA, ARF, Chemo, Hep., AIDS, mental health diagnosis, sleep apnea, morbid obesity)? @ -CAD Was patient admitted / discharged? Hospital course, mention meds given and route, prescriptions, significant lab abnormalities, going to OR and other pertinent info. @ -Patient's chest pain has improved since coming to the ED. Patient's EKG does not show any significant change when compared to his prior. Patient's troponin is however elevated at 1.81. The patient's labs are fairly unremarkable. Patient has been treated with IV heparin anticoagulation and oral aspirin in the ED. Case was discussed with [facility] commercial photographer (Dr. Booker) and ED physician (Dr. Ortega). They accept transfer to [facility]. Undiagnosed new problem with uncertain prognosis? @ -No Drug Therapy requiring intensive monitoring for toxicity (Heparin, Nitro, Insulin, Cardizem)? @ -No Were any procedures done? @ -No Diagnosis/symptom? @ -Chest pain, NSTEMI Acute, or Chronic, or Acute on Chronic? @ -Acute Uncomplicated (without systemic symptoms) or Complicated (systemic symptoms)? @ -Default Side effects of treatment? @ -No Exacerbation, Progression, or Severe Exacerbation? @ -No Poses a threat to life or bodily function? How? (Chest pain, [place], [place], pneumonia, PE, COPD, DKA, ARF, appy, cholecystitis, CVA, Diverticulitis, Homicidal, Suicidal, threat to staff... and all critical care pts) @ -Yes, Possibly - Lab Data Result diagrams: 05/25/24 15:44 05/25/24 15:44 Lab Results 05/25/24 05/25/24 05/25/24 Range/Units 15:44 15:44 15:44 WBC 7.5 (3.8-10.6) k/uL RBC 4.30 (4.30-5.90) m/uL Hgb 12.5 L (13.0-17.5) gm/dL Hct 38.6 L (39.0-53.0) % MCV 89.7 (80.0-100.0) fL MCH 29.1 (25.0-35.0) pg MCHC 32.4 (31.0-37.0) g/dL RDW 18.8 H (11.5-15.5) % Plt Count 176 (150-450) k/uL MPV 7.4 Neutrophils % 79 % Lymphocytes % 13 % Monocytes % 6 % Eosinophils % 0 % Basophils % 0 % Neutrophils # 5.9 (1.3-7.7) k/uL Lymphocytes # 1.0 (1.0-4.8) k/uL Monocytes # 0.4 (0-1.0) k/uL Eosinophils # 0.0 (0-0.7) k/uL Basophils # 0.0 (0-0.2) k/uL Hypochromasia Slight Anisocytosis Slight PT 11.1 (10.0-12.5) sec INR 1.0 (<1.2) APTT 22.9 (22.0-30.0) sec Sodium 139 (137-145) mmol/L Potassium 4.6 (3.5-5.1) mmol/L Chloride 102 (98-107) mmol/L Carbon Dioxide 27 (22-30) mmol/L Anion Gap 10 mmol/L BUN 18 (9-20) mg/dL Creatinine 1.08 (0.66-1.25) mg/dL Est GFR (CKD-EPI)AfAm 82 (>60 ml/min/1.73 sqM) Est GFR (CKD-EPI)NonAf 71 (>60 ml/min/1.73 sqM) Glucose 103 H (74-99) mg/dL Calcium 10.1 (8.4-10.2) mg/dL Magnesium 1.9 (1.6-2.3) mg/dL Total Bilirubin 0.7 (0.2-1.3) mg/dL AST 77 H (17-59) U/L ALT 24 (4-49) U/L Alkaline Phosphatase 58 (38-126) U/L Troponin I (0.000-0.034) ng/mL NT-Pro-B Natriuret Pep 1740 pg/mL Total Protein 7.1 (6.3-8.2) g/dL Albumin 4.4 (3.5-5.0) g/dL 01/25/25 Range/Units 15:44 WBC (3.8-10.6) k/uL RBC (4.30-5.90) m/uL Hgb (13.0-17.5) gm/dL Hct (39.0-53.0) % MCV (80.0-100.0) fL MCH (25.0-35.0) pg MCHC (31.0-37.0) g/dL RDW (11.5-15.5) % Plt Count (150-450) k/uL MPV Neutrophils % % Lymphocytes % % Monocytes % % Eosinophils % % Basophils % % Neutrophils # (1.3-7.7) k/uL Lymphocytes # (1.0-4.8) k/uL Monocytes # (0-1.0) k/uL Eosinophils # (0-0.7) k/uL Basophils # (0-0.2) k/uL Hypochromasia Anisocytosis PT (10.0-12.5) sec INR (<1.2) APTT (22.0-30.0) sec Sodium (137-145) mmol/L Potassium (3.5-5.1) mmol/L Chloride (98-107) mmol/L Carbon Dioxide (22-30) mmol/L Anion Gap mmol/L BUN (9-20) mg/dL Creatinine (0.66-1.25) mg/dL Est GFR (CKD-EPI)AfAm (>60 ml/min/1.73 sqM) Est GFR (CKD-EPI)NonAf (>60 ml/min/1.73 sqM) Glucose (74-99) mg/dL Calcium (8.4-10.2) mg/dL Magnesium (1.6-2.3) mg/dL Total Bilirubin (0.2-1.3) mg/dL AST (17-59) U/L ALT (4-49) U/L Alkaline Phosphatase (38-126) U/L Troponin I 1.810 H* (0.000-0.034) ng/mL NT-Pro-B Natriuret Pep pg/mL Total Protein (6.3-8.2) g/dL Albumin (3.5-5.0) g/dL - Radiology Data Chest x-ray: No acute cardiopulmonary disease/process. Critical Care Time Critical Care Time: Yes Total Critical Care Time: 45 Disposition Clinical Impression: Chest pain, NSTEMI (non-ST elevated myocardial infarction) Disposition: OTHER INSTITUTION NOT DEFINED Condition: Stable Is patient prescribed a controlled substance at d/c from ED?: No Referrals: Gracy Chruchill MD [Primary Care Provider] - 1-2 days Time of Disposition: 17:34 - Out of Hospital Transfer - Req. Specs Out of Hospital Transfer - Requested Specifics: Telemetry Unit ([facility])
[2024-05-25 16:00] LABS: Anisocytosis Slight; Basophils % (A) 0 %; Eosinophils % (A) 0 %; HCT 38.6 % (39.0-53.0); HGB 12.5 gm/dL (13.0-17.5); Hypochromasia Slight; Lymphocytes % (A) 13 %; MCH 29.1 pg (25.0-35.0); MCHC 32.4 g/dL (31.0-37.0); MCV 89.7 fL (80.0-100.0); Mean Platelet Volume 7.4; Monocytes # (A) 0.4 k/uL (0-1.0); Monocytes % (A) 6 %; Neutrophils # (A) 5.9 k/uL (1.3-7.7); Neutrophils % (A) 79 %; Platelet Count 176 k/uL (150-450); RDW 18.8 % (11.5-15.5); WBC 7.5 k/uL (3.8-10.6)
[2024-05-25 16:09] LABS: Partial Thromboplastin Time 22.9 sec (22.0-30.0); Prothrombin Time 11.1 sec (10.0-12.5)
--- NOTE | 2024-05-25 16:12 | XR ---
EXAMINATION TYPE: XR chest 1V portable DATE OF EXAM: 05/25/2024 3:54 PM COMPARISON: Previous chest radiograph 05/03/2024. CLINICAL INDICATION: Male, 68 years old with history of chest pain; [facility] TECHNIQUE: XR chest 1V portable Frontal view of the chest. FINDINGS: Lungs/Pleura: There is no evidence of pleural effusion, focal consolidation, or pneumothorax. Pulmonary vascularity: Unremarkable. Heart/mediastinum: Hepatomegaly and median sternotomy wires. Numerous postoperative clips overlying t he left chest wall. Musculoskeletal: No acute osseous pathology. Other findings: None IMPRESSION: No acute cardiopulmonary disease/process. [facility], , 05/25/2024 4:10 PM
[2024-05-25 16:15] LABS: ALT 24 U/L (4-49); AST 77 U/L (17-59); African American GFR (CKD) 82 (>60 ml/min/1.73 sqM); Albumin 4.4 g/dL (3.5-5.0); Alkaline Phosphatase 58 U/L (38-126); Anion Gap 10 mmol/L; Blood Urea Nitrogen 18 mg/dL (9-20); Calcium 10.1 mg/dL (8.4-10.2); Carbon Dioxide 27 mmol/L (22-30); Chloride 102 mmol/L (98-107); Glucose 103 mg/dL (74-99); Magnesium 1.9 mg/dL (1.6-2.3); Non-African American GFR(CKD) 71 (>60 ml/min/1.73 sqM); Potassium 4.6 mmol/L (3.5-5.1); Sodium 139 mmol/L (137-145); Total Bilirubin 0.7 mg/dL (0.2-1.3); Total Protein 7.1 g/dL (6.3-8.2)
[2024-05-25 16:23] LABS: NT-Pro-B-Type Natriuretic Pept 1740 pg/mL
[2024-05-25] MEDS ORDERED: HEPARIN SODIUM 1,000 UN/ML (10ML VL) IV PRN (17:27)
[2024-05-25] MEDS: HEPARIN SOD,PORK IN 0.45% NACL 25,000 UNIT in 0.45% NACL 1 250ML.BAG IV SCH (17:39)
[2024-05-25] MEDS: HEPARIN SODIUM 1,000 UN/ML (10ML VL) IV ONE (17:39)
[2024-05-25] MEDS: ASPIRIN 81 MG PO STA (17:40)
[2024-05-25 18:06] VITALS: BP 110/70; PULSE 86; RESP 18
[2024-05-25 18:26] VITALS: TEMP 97.6
== END 2024-05-25 18:30 | disposition other institution (70) ==
LOC: EC 15:32
DX: I21.4 Non-ST elevation (NSTEMI) myocardial infarction (principal); I25.10 Atherosclerotic heart disease of native coronary artery without angina pectoris; Z87.891 Personal history of nicotine dependence; Z95.1 Presence of aortocoronary bypass graft; Z79.02 Long term (current) use of antithrombotics/antiplatelets
CPT/HCPCS: 36415; 93005; 83880; 80053; 83735; 84484; 85025; 85610; 85730; 71045; 99291; 96365; J1644 ×2